=== PATIENT | male | born 1970 | race Caucasian/White ===

== ENCOUNTER 2017-09-05 02:04 | Inpatient (IN) | payer OTHER ==
[~2017-09-05] VITALS: Ht 188 cm; Wt 112.5 kg
[~2017-09-05 02:04] MED LIST: ALLP300T PO; CEPH500C PO; HYDR-34 PO; INDO50CA PO; METO25TA PO; SIMV10TA3; TELM40T PO; TRAZ-144 PO
--- OUTSIDE RECORDS SUMMARY | 2017-09-05 02:11 | XMS REPORT | Continuity of Care Document ---
Author Author [facility] Organization [facility] Address Unknown Phone Unavailable Allergies Active Description Code Type Severity Reaction Onset Reported/Identified Relationship to Patient Clinical Status Yes morphine [id number] Drug Allergy Mild N/A 06/23/2007 Medications There is no data. Problems Date Dx Coded Attending Type Code Diagnosis Diagnosed By 12/29/2009 Ot 883.0 12/29/2009 Ot E000.8 12/29/2009 Ot E849.0 12/29/2009 Ot E917.9 10/20/2011 Ot 881.00 10/20/2011 Ot E000.0 10/20/2011 Ot E920.8 12/22/2013 JORDAN FLOYD Ot 816.00 12/22/2013 JORDAN FLOYD Ot 883.0 12/22/2013 JORDAN FLOYD Ot 959.5 12/22/2013 JORDAN FLOYD Ot E000.8 12/22/2013 JORDAN FLOYD Ot E849.0 12/22/2013 JORDAN FLOYD Ot E917.4 06/17/2015 JULIET LOPEZ APRN Ot 272.4 06/17/2015 JULIET LOPEZ APRN Ot 780.79 06/17/2015 JULIET LOPEZ APRN Ot 790.29 Procedures There is no data. Results There is no data. Encounters ACCT No. Visit Date/Time Discharge Status Pt. Type Provider Facility Loc./Unit Complaint [id number] 06/17/2015 21:24:00 06/17/2015 23:12:00 DIS Emergency GENARO JIM, CHRISTIAN Mckeon [facility] ER [id number] 05/26/2014 11:36:00 05/26/2014 23:59:59 CLS Outpatient JULIET LOPEZ APRN [facility] LAB [id number] 12/22/2013 18:55:00 12/22/2013 20:04:00 DIS Emergency YULIANA MCGRATH, JORDAN Alexander [facility] [id number] 10/20/2011 12:35:00 Document Registration [id number] 12/29/2009 01:44:00 Document Registration
[2017-09-05] MEDS ORDERED: NS IV 1000 ML 1,000 ML IV ONE (02:16)
[2017-09-05] MEDS ORDERED: fentaNYL INJECTION 100 MCG/2 ML AMP IVP STA (02:16)
[2017-09-05 02:24] LABS: BASOPHILS % (AUTO) 0 % (0-10); EOSINOPHILS % (AUTO) 0 % (0-10); HEMATOCRIT 44 % (40-54); HEMOGLOBIN 15.8 G/DL (13.3-17.7); LYMPHOCYTES # (AUTO) 2.4 X 10^3 (1.0-4.0); LYMPHOCYTES % (AUTO) 12 % (12-44); MEAN CORPUSCULAR HEMOGLOBIN 31 PG (25-34); MEAN CORPUSCULAR HGB CONC 36 G/DL (32-36); MEAN CORPUSCULAR VOLUME 87 FL (80-99); MEAN PLATELET VOLUME 10.3 FL (7.4-10.4); MONOCYTES # (AUTO) 1.7 X 10^3 (0.0-1.0); MONOCYTES % (AUTO) 8 % (0-12); NEUTROPHILS # (AUTO) 15.6 X 10^3 (1.8-7.8); NEUTROPHILS % (AUTO) 79 % (42-75); PLATELET COUNT 327 10^3/uL (130-400); RED BLOOD COUNT 5.04 10^6/uL (4.35-5.85); RED CELL DISTRIBUTION WIDTH 13.1 % (10.0-14.5); WHITE BLOOD COUNT 19.7 10^3/uL (4.3-11.0)
[2017-09-05 02:31] LABS: BILIRUBIN,URINE NEGATIVE (NEGATIVE); CLARITY,URINE CLEAR; COLOR,URINE AMBER; GLUCOSE, URINE (UA) NEGATIVE (NEGATIVE); KETONES,URINE NEGATIVE (NEGATIVE); LEUKOCYTE ESTERASE ,URINE 1+ (NEGATIVE); NITRITE,URINE NEGATIVE (NEGATIVE); PH,URINE 6 (5-9); PROTEIN,URINE NEGATIVE (NEGATIVE); UROBILINOGEN,URINE 1 MG/DL (NORMAL)
[2017-09-05] MEDS ORDERED: HYDROmorphone 2 MG/ML VIAL (DILAUDID) IVP STA (02:37)
--- NOTE | 2017-09-05 02:37 | ED Abdominal Pain ---
General Chief Complaint: Abdominal/GI Problems Stated Complaint: RT SIDE ABD PAIN Nursing Triage Note: PT TO ED 9 W/ S.O. FOR C/O LOWER ABD PAIN ONSET MONDAY AM, WORSE TODAY. DENIES N/V/D. DOES REPORT SMALL AMT BLOOD IN HIS STOOLS W/ LAST BM MONDAY AM. NO OTHER C/O VOICED Sepsis Screen: No Definite Risk Source of Information: Patient Exam Limitations: No Limitations History of Present Illness Date Seen by Provider: September 05, 2017 Time Seen by Provider: 02:10 Initial Comments Here with complaint of lower abdominal pain over the last couple of days. Complains of fullness and pain with movement. Reports that he's had diarrhea a few times and noted some blood in the stool the last couple times. Denies nausea or vomiting. Pain is localized mostly lower central abdomen. Timing/Duration: 1-2 Days Severity/Quality: Moderate, Severe, Aching, Cramping Location: Suprapubic Radiation: RLQ, LLQ Activities at Onset: None Modifying Factors: Improves With Defecating; Worsens With Eating, Worsens With Movement Associated Symptoms: No Back Pain, No Chest Pain; Fever/Chills, Nausea/Vomiting ; No Shortness of Air, No Swelling/Mass in Abdomen, No Weakness Allergies and Home Medications Allergies Coded Allergies: Morphine (Unverified Adverse Reaction, Mild, 06/23/07) Home Medications Cephalexin Monohydrate 500 Mg Capsule, 1 EACH PO TID Prescribed by: JORDAN BRIDGES on 12/22/132001 Hydrocodone Bit/Acetaminophen 1 Ea Tablet, 1 EA PO Q4H, (Reported) Metoprolol Succinate 25 Mg Tab.sr.24h, 1 EACH PO DAILY, (Reported) Patient Home Medication List Home Medication List Reviewed: Yes Review of Systems Constitutional: see HPI; No chills, No fever EENTM: No Symptoms Reported Respiratory: No Symptoms Reported Cardiovascular: No Symptoms Reported Gastrointestinal: See HPI, Abdominal Pain, Diarrhea, Rectal Bleeding Genitourinary: No Symptoms Reported Musculoskeletal: no symptoms reported Skin: no symptoms reported All Other Systems Reviewed Negative Unless Noted: Yes Past Xgcmihr-Xrpqsg-Bwfyhz Hx Past Med/Social Hx: Reviewed Nursing Past Med/Soc Hx Patient Social History Alcohol Use: Denies Use Recreational Drug Use: No Smoking Status: Never a Smoker 2nd Hand Smoke Exposure: Yes Recent Foreign Travel: No Contact w/Someone Who Travel: No Recent Infectious Disease Expo: No Recent Hopitalizations: Yes Physical Abuse: No Sexual Abuse: No Mistreated: No Fear: No Immunizations Up To Date Tetanus Booster (TDap): Less than 5yrs Past Medical History Surgeries: Yes (APPY, DISC SURG) Amputation, Appendectomy, Orthopedic Cardiac: Yes Hypertension Neurological: No Reproductive Disorders: No Gastrointestinal: Yes Abdominal Hernia (umbilical) Musculoskeletal: Yes (chronic neck pain) Gout Endocrine: No Cancer: No Psychosocial: No Nursing Suicide Risk Score: 0 Blood Disorders: No Family Medical History Reviewed Nursing Family Hx No Pertinent Family Hx Physical Exam Vital Signs Vital Signs - First Documented 09/05/17 02:08 Temp 96.1 Pulse 78 Resp 20 B/P (MAP) 147/100 (116) Pulse Ox 98 O2 Delivery Room Air Capillary Refill : Less Than 3 Seconds General Appearance: WD/WN, no apparent distress HEENT: PERRL/EOMI, pharynx normal Neck: full range of motion, supple Respiratory: lungs clear, normal breath sounds Cardiovascular: regular rate, rhythm, no murmur Gastrointestinal: soft, tenderness (suprapubic region), other (umbilical hernia reducible and was reduced by me. Defects noted in the left lower umbilical area) Extremities: non-tender, normal inspection Back: normal inspection, no CVA tenderness, no vertebral tenderness Neurologic/Psychiatric: alert, oriented x 3 Skin: normal color, warm/dry Focused Exam Lactate Level 09/05/17 03:27: Lactic Acid Level 0.76 Lactic Acid Level Laboratory Tests Test 09/05/17 03:27 Lactic Acid Level 0.76 MMOL/L (0.50-2.00) Progress/Results/Core Measures Lab Results Laboratory Tests Test 09/05/17 02:14 09/05/17 02:25 09/05/17 03:27 Range/Units White Blood Count 19.7 H 4.3-11.0 10^3/uL Red Blood Count 5.04 4.35-5.85 10^6/uL Hemoglobin 15.8 13.3-17.7 G/DL Hematocrit 44 40-54 % Mean Corpuscular Volume 87 80-99 FL Mean Corpuscular Hemoglobin 31 25-34 PG Mean Corpuscular Hemoglobin Concent 36 32-36 G/DL Red Cell Distribution Width 13.1 10.0-14.5 % Platelet Count 327 130-400 10^3/uL Mean Platelet Volume 10.3 7.4-10.4 FL Neutrophils (%) (Auto) 79 H 42-75 % Lymphocytes (%) (Auto) 12 12-44 % Monocytes (%) (Auto) 8 0-12 % Eosinophils (%) (Auto) 0 0-10 % Basophils (%) (Auto) 0 0-10 % Neutrophils # (Auto) 15.6 H 1.8-7.8 X 10^3 Lymphocytes # (Auto) 2.4 1.0-4.0 X 10^3 Monocytes # (Auto) 1.7 H 0.0-1.0 X 10^3 Eosinophils # (Auto) 0.0 0.0-0.3 10^3/uL Basophils # (Auto) 0.0 0.0-0.1 10^3/uL Neutrophils % (Manual) 83 % Lymphocytes % (Manual) 10 % Monocytes % (Manual) 6 % Band Neutrophils 1 % Blood Morphology Comment NORMAL Sodium Level 136 135-145 MMOL/L Potassium Level 3.8 3.6-5.0 MMOL/L Chloride Level 106 98-107 MMOL/L Carbon Dioxide Level 18 L 21-32 MMOL/L Anion Gap 12 5-14 MMOL/L Blood Urea Nitrogen 14 7-18 MG/DL Creatinine 1.12 0.60-1.30 MG/DL Estimat Glomerular Filtration Rate > 60 BUN/Creatinine Ratio 13 Glucose Level 113 H 70-105 MG/DL Calcium Level 9.5 8.5-10.1 MG/DL Total Bilirubin 1.6 H 0.1-1.0 MG/DL Aspartate Amino Transf (AST/SGOT) 17 5-34 U/L Alanine Aminotransferase (ALT/SGPT) 27 0-55 U/L Alkaline Phosphatase 107 40-136 U/L C-Reactive Protein High Sensitivity 6.94 H 0.00-0.50 MG/DL Total Protein 7.6 6.4-8.2 GM/DL Albumin 4.2 3.2-4.5 GM/DL Urine Color JORJE H Urine Clarity CLEAR Urine pH 6 5-9 Urine Specific [place]aine 1.015 L 1.016-1.022 Urine Protein NEGATIVE NEGATIVE Urine Glucose (UA) NEGATIVE NEGATIVE Urine Ketones NEGATIVE NEGATIVE Urine Nitrite NEGATIVE NEGATIVE Urine Bilirubin NEGATIVE NEGATIVE Urine Urobilinogen 1 NORMAL MG/DL Urine Leukocyte Esterase 1+ H NEGATIVE Urine RBC (Auto) NEGATIVE NEGATIVE Urine RBC NONE /HPF Urine WBC RARE /HPF Urine Squamous Epithelial Cells RARE /HPF Urine Crystals NONE /LPF Urine Bacteria NEGATIVE /HPF Urine Casts NONE /LPF Urine Mucus LARGE H /LPF Urine Culture Indicated NO Lactic Acid Level 0.76 0.50-2.00 MMOL/L My Orders Orders - GARTH CLINTON MD Cbc With Automated Diff (09/05/17 02:16) Comprehensive Metabolic Panel (09/05/17 02:16) Hs C Reactive Protein (09/05/17 02:16) Ua Culture If Indicated (09/05/17 02:16) Saline Lock/Iv-Start (09/05/17 02:16) Ns Iv 1000 Ml (Sodium Chloride 0.9%) (09/05/17 02:16) Fentanyl Injection (Sublimaze Injection (09/05/17 02:16) Manual Differential (09/05/17 02:14) Hydromorphone Injection (Dilaudid Inject (09/05/17 02:37) Ct Abdomen/Pelvis W (09/05/17 02:49) Iohexol Injection (Omnipaque 350 Mg/Ml 1 (09/05/17 03:15) Ns (Ivpb) (Sodium Chloride 0.9%) (09/05/17 03:15) Lactic Acid Analyzer (09/05/17 03:23) Blood Culture (09/05/17 03:23) Rocephin 1g/Ns Iv (09/05/17 04:00) Medications Given in ED Current Medications Medications Dose Ordered Sig/Terell Route Start Time Stop Time Status Last Admin Dose Admin Iohexol 100 ml ONCE ONCE IV 09/05/17 03:15 09/05/17 03:16 DC 09/05/17 03:12 100 ML Sodium Chloride 250 ml ONCE ONCE IV 09/05/17 03:15 09/05/17 03:16 DC 09/05/17 03:13 80 ML Sodium Chloride 1,000 ml @ 0 mls/hr Q0M ONCE IV 09/05/17 02:16 09/05/17 02:18 DC 09/05/17 02:46 1,000 MLS/HR Vital Signs/I&O 09/05/17 02:08 Temp 96.1 Pulse 78 Resp 20 B/P (MAP) 147/100 (116) Pulse Ox 98 O2 Delivery Room Air Blood Pressure Mean: 116 Progress Note : Progress Note Seen and evaluated. IV, labs, UA, Dilaudid [address] abdomen and pelvis with contrast ordered due to concerns about diverticulitis and/or perforation. Patient does have significant white blood cell count. Monitor patient. Pain med control pain. 0354: CT results noted. Patient does have a significant diverticulitis. White count is significantly elevated. Blood cultures and lactic acid have been drawn. Rocephin 1 g IV. I discussed the case with Dr. GUERRA and he accepts patient for admission, inpatient status. Consult surgeon in the a.m. Written to consult Dr. Ritchie in the morning. Findings concerning discussed with patient and family who agree with plan. Diagonstic Imaging: CT Plain Films/CT/US/NM/MRI: abdomen, pelvis Comments Sigmoid diverticulitis without perforation per radiology review. Reviewed: Reviewed Night Hawk Study, Reviewed by Me Departure Communication (Admissions) Time/Spoke to Admitting Phy: 03:54 Impression Primary Impression: Sigmoid diverticulitis Disposition: ADMITTED INPATIENT Condition: Stable Admissions Decision to Admit Reason: Admit from ER (General) Decision to Admit/Date: September 05, 2017 Time/Decision to Admit Time: 03:54 Departure-Patient Inst. Referrals: RUFINA MURPHY MD (PCP/Family) Primary Care Physician GARTH CLINTON MD September 05, 2017 02:37
[2017-09-05 02:38] LABS: BACTERIA,URINE NEGATIVE /HPF; SQUAMOUS EPITHELIAL CELL,UR RARE /HPF; WBC,URINE RARE /HPF
[2017-09-05 02:42] LABS: ALANINE AMINOTRANSFERASE 27 U/L (0-55); ALBUMIN 4.2 GM/DL (3.2-4.5); ALKALINE PHOSPHATASE 107 U/L (40-136); BILIRUBIN,TOTAL 1.6 MG/DL (0.1-1.0); BUN/CREATININE RATIO 13; CALCIUM 9.5 MG/DL (8.5-10.1); CARBON DIOXIDE 18 MMOL/L (21-32); CHLORIDE 106 MMOL/L (98-107); CREATININE SERUM 1.12 MG/DL (0.60-1.30); GFR ESTIMATED > 60; GLUCOSE 113 MG/DL (70-105); POTASSIUM 3.8 MMOL/L (3.6-5.0); SODIUM 136 MMOL/L (135-145); TOTAL PROTEIN 7.6 GM/DL (6.4-8.2)
[2017-09-05 02:47] LABS: BAND NEUTROPHILS 1 %; LYMPHOCYTES % (MANUAL) 10 %; MONOCYTES % (MANUAL) 6 %; NEUTROPHILS % (MANUAL) 83 %; RBC MORPH NORMAL
[2017-09-05] MEDS ORDERED: IOHEXOL 350 MG/ML 100 ML (OMNIPAQUE 350) VIAL IV ONE (03:15)
[2017-09-05] MEDS ORDERED: NS 250 ML (IVPB) BAG IV ONE (03:15)
[2017-09-05] MEDS ORDERED: cefTRIAXone INJECTION 1,000 MG in NS (IVPB) 100 ML IV ONE (04:00)
[2017-09-05 05:00] VITALS: BP 135/86
[2017-09-05] MEDS ORDERED: NS IV 1000 ML 1,000 ML ONE (05:09)
[2017-09-05] MEDS: NS IV 1000 ML 1,000 ML IV SCH ×3 (05:10→23:27)
[2017-09-05] MEDS ORDERED: CATHETER FLUSH 10 ML SYR IV PRN (06:00)
[2017-09-05] MEDS: cefTRIAXone 1 GM/NS 100 ML IVPB IV SCH ×2 (06:02)
[2017-09-05] MEDS: CATHETER FLUSH 10 ML SYR IV SCH ×3 (06:04→21:25)
[2017-09-05] MEDS: metroNIDAZOLE 500 MG/100 ML IVPB (PRE-MIX) IV SCH ×4 (06:09→23:57)
[2017-09-05] MEDS: HYDROmorphone 2 MG/ML VIAL (DILAUDID) IV PRN ×5 (06:10→23:29)
[2017-09-05 08:00] VITALS: BP 132/75
--- NOTE | 2017-09-05 08:00 | Diagnostic Imaging Report ---
PROCEDURE: CT abdomen and pelvis with contrast. TECHNIQUE: Multiple contiguous axial images were obtained through the abdomen and pelvis after administration of intravenous contrast. INDICATION: Low abdominal pain. No previous. Segmental bowel wall thickening with pericolonic edema associated with mid sigmoid diverticulitis. There was, however, no extraluminal air collection. No findings of transmural perforation and no abscess or drainable fluid collection. There is a fatty umbilical hernia without herniated viscus. Liver, gallbladder, spleen, adrenals and pancreas are unremarkable. The kidneys are unobstructed, nonacute and nonfocal. There is no bowel obstruction. IMPRESSION: 1. Focal sigmoid diverticulitis without abscess, obstruction or findings of transmural perforation. 2. Fatty chronic umbilical hernia. 3. No other acute abnormalities. Dictated by: Dictated on workstation # [id number]
[2017-09-05 08:09] LABS: BASOPHILS % (AUTO) 0 % (0-10); EOSINOPHILS # (AUTO) 0.1 10^3/uL (0.0-0.3); EOSINOPHILS % (AUTO) 1 % (0-10); HEMATOCRIT 42 % (40-54); HEMOGLOBIN 14.7 G/DL (13.3-17.7); LYMPHOCYTES # (AUTO) 2.7 X 10^3 (1.0-4.0); LYMPHOCYTES % (AUTO) 16 % (12-44); MEAN CORPUSCULAR HEMOGLOBIN 31 PG (25-34); MEAN CORPUSCULAR HGB CONC 35 G/DL (32-36); MEAN CORPUSCULAR VOLUME 89 FL (80-99); MEAN PLATELET VOLUME 10.4 FL (7.4-10.4); MONOCYTES # (AUTO) 1.8 X 10^3 (0.0-1.0); MONOCYTES % (AUTO) 10 % (0-12); NEUTROPHILS # (AUTO) 12.7 X 10^3 (1.8-7.8); NEUTROPHILS % (AUTO) 73 % (42-75); PLATELET COUNT 286 10^3/uL (130-400); RED BLOOD COUNT 4.75 10^6/uL (4.35-5.85); RED CELL DISTRIBUTION WIDTH 13.3 % (10.0-14.5); WHITE BLOOD COUNT 17.3 10^3/uL (4.3-11.0)
[2017-09-05 08:38] LABS: ALANINE AMINOTRANSFERASE 23 U/L (0-55); ALBUMIN 3.8 GM/DL (3.2-4.5); ALKALINE PHOSPHATASE 93 U/L (40-136); BILIRUBIN,TOTAL 1.6 MG/DL (0.1-1.0); BUN/CREATININE RATIO 13; CALCIUM 8.8 MG/DL (8.5-10.1); CARBON DIOXIDE 20 MMOL/L (21-32); CHLORIDE 106 MMOL/L (98-107); GFR ESTIMATED > 60; GLUCOSE 97 MG/DL (70-105); POTASSIUM 3.7 MMOL/L (3.6-5.0); SODIUM 136 MMOL/L (135-145); TOTAL PROTEIN 6.7 GM/DL (6.4-8.2)
[2017-09-05] MEDS ORDERED: HYDR-3820 PO (09:48)
[2017-09-05] MEDS ORDERED: GABA-488 PO (09:48)
[2017-09-05] MEDS ORDERED: ZOLP10TA5 PO (09:48)
[2017-09-05] MEDS ORDERED: ALLO300T2 PO (09:48)
[2017-09-05] MEDS ORDERED: METO-370 PO (09:48)
[2017-09-05] MEDS ORDERED: DIAZ5TAB3 PO (09:56)
[2017-09-05] MEDS ORDERED: GABA600T2 PO (09:56)
--- NOTE | 2017-09-05 11:39 | History & Physical-Hospitalist ---
History of Present Illness HPI/Chief Complaint Pt is [id number] with a PMH of HTN who presented to the ER for evaluation of his abdominal pain. He states his symptoms started 2 days ago when he woke up in the morning. They continued to worsen and his pain intensified so he decided to seek care in the ER. He denies any nausea or vomiting and had a BM yesterday and has had some diarrhea. He reports that he was febrile off and on over the past two days as well. He localizes the pain to his lower abdomen and describes it as sharp. He states his pain is now well controlled with current pain medications. he Source: patient Exam Limitations: no limitations Date Seen 09/05/17 Time Seen by Provider: 11:15 Attending Physician Kurtis Rai MD PCP Brown Murphy MD Referring Physician Date of Admission September 05, 2017 at 4:00 am Home Medications & Allergies Home Medications Reviewed patient Home Medication Reconciliation performed by pharmacy medication reconciliations substance abuse technician and/or nursing. Patients Allergies have been reviewed. Allergies Allergies Coded Allergies morphine (Unverified Adverse Reaction, Mild, 06/23/07) Past Wtmdiay-Croywg-Pedxsw Hx Past Med/Social Hx: Reviewed Nursing Past Med/Soc Hx Patient Social History Alcohol Use: Denies Use Recreational Drug Use: No Smoking Status: Never a Smoker 2nd Hand Smoke Exposure: Yes Physical Abuse Screen: No Sexual Abuse: No Recent Foreign Travel: No Contact w/other who traveled: No Recent Hopitalizations: Yes Recent Infectious Disease Expo: No Immunizations Up To Date Tetanus Booster (TDap): Less than 5yrs Seasonal Allergies Seasonal Allergies: No Past Medical History Surgeries: Amputation, Appendectomy, Orthopedic (neck surgery) Cardiac: High Cholesterol, Hypertension Reproductive: No Gastrointestinal: Abdominal Hernia Musculoskeletal: Gout History of Blood Disorders: No Family History Reviewed Nursing Family Hx Patient reports no known family medical history. Unknown family history as patient is adopted Review of Systems Constitutional: No chills; fever EENTM: No blurred vision, No double vision, No nose congestion, No throat pain Respiratory: No cough, No dyspnea on exertion, No short of breath Cardiovascular: No chest pain, No edema, No palpitations Gastrointestinal: abdominal pain; No constipation; diarrhea; No melena, No nausea, No vomiting; other (BRBPR) Genitourinary: No dysuria, No frequency Musculoskeletal: No joint pain, No muscle pain Skin: No lesions, No rash Psychiatric/Neurological: Denies Headache, Denies Numbness, Denies Tingling Physical Exam Physical Exam Vital Signs Vital Signs - First Documented 09/05/17 02:08 Temp 96.1 Pulse 78 Resp 20 B/P (MAP) 147/100 (116) Pulse Ox 98 O2 Delivery Room Air Capillary Refill : Less Than 3 Seconds General Appearance: No Apparent Distress, WD/WN HEENT: PERRL/EOMI, Moist Mucous Membranes; No Scleral Icterus (L), No Scleral Icterus (R) Neck: Non Tender, Supple; No JVD, No Thyromegaly Respiratory: Lungs Clear, No Respiratory Distress Cardiovascular: Regular Rate, Rhythm, No Murmur Gastrointestinal: Normal Bowel Sounds, Soft; No Guarding, No Rebound; Tenderness Extremity: Normal Capillary Refill, No Calf Tenderness, No Pedal Edema Neurologic/Psychiatric: Alert, Oriented x3, No Motor/Sensory Deficits, Normal Mood/Affect Skin: Normal Color, Warm/Dry, Tattoos/Piercings Results Results/Procedures Labs Laboratory Tests 09/05/17 02:14 09/05/17 07:58 Patient resulted labs reviewed. Imaging: Reviewed Imaging Report Assessment/Plan Admission Diagnosis Diverticulitis Admission Status: Inpatient Order (span 2 midnights) Reason for Inpatient Admission: Needs IV abx and surgical evaluation Diagnosis/Problems Diagnosis/Problems (1) Sigmoid diverticulitis Status: Acute Assessment & Plan: Met sepsis criteria (leukocytosis with temp of 96.1) on arrival- now resolved Blood cultures obtained, lactic acid normal, IV abx given NPO Continue IV Dilaudid for pain control Continue Rocephin and Flagyl Leukocytosis improving Surgery consulted (2) Essential (primary) hypertension Assessment & Plan: Monitor BP Continue to monitor (3) Bright red blood per rectum Assessment & Plan: Surgery consulted, appreciate assistance Hgb normal (4) Prophylactic measure Assessment & Plan: NPO NS at 125ml/hr Clinical Quality Measures DVT/VTE Risk/Contraindication: Risk Factor Score Per Nursin RFS Level Per Nursing on Admit: 3=High Copy Copies To 1: BROWN MURPHY MD, KATELYN M MD September 05, 2017 11:39 am
[2017-09-05 12:00] VITALS: BP 131/79
[2017-09-05] MEDS: ONDANSETRON 4 MG/2 ML (SDV) Z0FRAN IV PRN ×2 (15:10→20:08)
[2017-09-05 15:35] VITALS: BP 133/76
--- NOTE | 2017-09-05 15:55 | Consultation ---
History of Present Illness History of Present Illness Patient Consulted On(shobha/time) 09/05/17 15:49 Date Seen by Provider: September 05, 2017 Time Seen by Provider: 15:49 History of Present Illness Consult requested by Dr. Peña for diverticulitis Patient is a 47-year-old male who suddenly began having pain in left lower quadrant. He woke up with that. Pain was constant. Sharp in nature. No radiation of pain. Patient probably had some diarrhea at times. He has never had pain like this before. It continued to worsen is moderate to severe. Moving does cause it to worsen little bit. Nothing was seems to make it better except for pain medications at this point. Patient is not having any nausea or vomiting. He was having on and off fevers he felt. He has CT scan performed which demonstrated inflammation in the sigmoid region. No evidence of abscess or perforation when I reviewed it. Patient currently feeling a little bit better. He denies any sweats chills shortness of breath or chest pain. Allergies and Home Medications Allergies Coded Allergies: morphine (Unverified Adverse Reaction, Mild, 06/23/07) Home Medications Allopurinol 300 Mg Tablet, 300 MG PO DAILY, (Reported) Diazepam 5 Mg Tablet, 5 MG PO TID PRN for ANXIETY, (Reported) Gabapentin 600 Mg Tablet, 600 MG PO HS, (Reported) Hydrocodone/Acetaminophen 1 Each Tablet, 1 TAB PO Q4H PRN for PAIN-MODERATE, ( Reported) Metoprolol Succinate 50 Mg Tab.er.24h, 50 MG PO HS, (Reported) Zolpidem Tartrate 10 Mg Tablet, 10 MG PO HS, (Reported) Patient Home Medication List Home Medication List Reviewed: Yes Past Knkaluh-Ohmpgp-Ykkyea Hx Patient Social History Alcohol Use: Denies Use Recreational Drug Use: No Smoking Status: Never a Smoker 2nd Hand Smoke Exposure: Yes Recent Foreign Travel: No Contact w/Someone Who Travel: No Recent Infectious Disease Expo: No Recent Hopitalizations: Yes Physical Abuse Screen: No Sexual Abuse: No Immunizations Up To Date Tetanus Booster (TDap): Less than 5yrs Seasonal Allergies Seasonal Allergies: No Surgeries History of Surgeries: Yes (APPY, DISC SURG, amputation of index finger rt hand) Surgeries: Amputation, Appendectomy, Orthopedic (neck surgery) Respiratory History of Respiratory Disorde: No Cardiovascular History of Cardiac Disorders: Yes Cardiac Disorders: High Cholesterol, Hypertension Neurological History of Neurological Disord: No Reproductive System Hx Reproductive Disorders: No Genitourinary History of Genitourinary Disor: No Gastrointestinal History of Gastrointestinal Di: Yes Gastrointestinal Disorders: Abdominal Hernia Musculoskeletal History of Musculoskeletal Dis: Yes (chronic neck pain) Musculoskeletal Disorders: Gout Endocrine History of Endocrine Disorders: No HEENT History of HEENT Disorders: No Cancer History of Cancer: No Psychosocial History of Psychiatric Problem: No Integumentary History of Skin or Integumenta: No Blood Transfusions History of Blood Disorders: No Family Medical History Significant Family History: No Pertinent Family Hx (Adopted) Family Medial History: Patient reports no known family medical history. Review of Systems-General Constitutional: no symptoms reported EENTM: no symptoms reported Respiratory: no symptoms reported Cardiovascular: no symptoms reported Gastrointestinal: see HPI Genitourinary: no symptoms reported Musculoskeletal: no symptoms reported Skin: no symptoms reported Psychiatric/Neurological: No Symptoms Reported Physical Exam-General Problems Physical Exam Vital Signs Vital Signs - First Documented 09/05/17 02:08 Temp 96.1 Pulse 78 Resp 20 B/P (MAP) 147/100 (116) Pulse Ox 98 O2 Delivery Room Air Capillary Refill : Less Than 3 Seconds General Appearance: WD/WN, no apparent distress HEENT: PERRL/EOMI, normal ENT inspection Neck: non-tender, full range of motion, supple Respiratory: no respiratory distress, no accessory muscle use Cardiovascular: regular rate, rhythm Gastrointestinal: soft; No guarding, No rebound; tenderness (right lower quadrant) Rectal: deferred Back: normal inspection Neurologic/Psychiatric: seasoning mixer II-XII nml as tested, no motor/sensory deficits, alert, normal mood/affect, oriented x 3 Skin: normal color, warm/dry Lymphatic: no adenopathy Data Review Labs Laboratory Tests 09/05/17 02:14: White Blood Count 19.7H, Red Blood Count 5.04, Hemoglobin 15.8, Hematocrit 44, Mean Corpuscular Volume 87, Mean Corpuscular Hemoglobin 31, Mean Corpuscular Hemoglobin Concent 36, Red Cell Distribution Width 13.1, Platelet Count 327, Mean Platelet Volume 10.3, Neutrophils (%) (Auto) 79H, Lymphocytes (%) (Auto) 12 , Monocytes (%) (Auto) 8, Eosinophils (%) (Auto) 0, Basophils (%) (Auto) 0, Neutrophils # (Auto) 15.6H, Lymphocytes # (Auto) 2.4, Monocytes # (Auto) 1.7H, Eosinophils # (Auto) 0.0, Basophils # (Auto) 0.0, Neutrophils % (Manual) 83, Lymphocytes % (Manual) 10, Monocytes % (Manual) 6, Band Neutrophils 1, Blood Morphology Comment NORMAL, Sodium Level 136, Potassium Level 3.8, Chloride Level 106, Carbon Dioxide Level 18L, Anion Gap 12, Blood Urea Nitrogen 14, Creatinine 1.12, Estimat Glomerular Filtration Rate > 60, BUN/Creatinine Ratio 13, Glucose Level 113H, Calcium Level 9.5, Total Bilirubin 1.6H, Aspartate Amino Transf (AST/SGOT) 17, Alanine Aminotransferase (ALT/SGPT) 27, Alkaline Phosphatase 107, C-Reactive Protein High Sensitivity 6.94H, Total Protein 7.6, Albumin 4.2 09/05/17 02:25: Urine Color AMBERH, Urine Clarity CLEAR, Urine pH 6, Urine Specific [place] 1.015L, Urine Protein NEGATIVE, Urine Glucose (UA) NEGATIVE, Urine Ketones NEGATIVE, Urine Nitrite NEGATIVE, Urine Bilirubin NEGATIVE, Urine Urobilinogen 1 , Urine Leukocyte Esterase 1+H, Urine RBC (Auto) NEGATIVE, Urine RBC NONE, Urine WBC RARE, Urine Squamous Epithelial Cells RARE, Urine Crystals NONE, Urine Bacteria NEGATIVE, Urine Casts NONE, Urine Mucus LARGEH, Urine Culture Indicated NO 09/05/17 03:27: Lactic Acid Level 0.76 09/05/17 07:58: White Blood Count 17.3H, Red Blood Count 4.75, Hemoglobin 14.7, Hematocrit 42, Mean Corpuscular Volume 89, Mean Corpuscular Hemoglobin 31, Mean Corpuscular Hemoglobin Concent 35, Red Cell Distribution Width 13.3, Platelet Count 286, Mean Platelet Volume 10.4, Neutrophils (%) (Auto) 73, Lymphocytes (%) (Auto) 16 , Monocytes (%) (Auto) 10, Eosinophils (%) (Auto) 1, Basophils (%) (Auto) 0, Neutrophils # (Auto) 12.7H, Lymphocytes # (Auto) 2.7, Monocytes # (Auto) 1.8H, Eosinophils # (Auto) 0.1, Basophils # (Auto) 0.0, Sodium Level 136, Potassium Level 3.7, Chloride Level 106, Carbon Dioxide Level 20L, Anion Gap 10, Blood Urea Nitrogen 13, Creatinine 1.00, Estimat Glomerular Filtration Rate > 60, BUN/ Creatinine Ratio 13, Glucose Level 97, Calcium Level 8.8, Total Bilirubin 1.6H, Aspartate Amino Transf (AST/SGOT) 15, Alanine Aminotransferase (ALT/SGPT) 23, Alkaline Phosphatase 93, Total Protein 6.7, Albumin 3.8 Assessment/Plan Assessment/Plan Assessment/Plan 47-year-old male with left lower quadrant abdominal pain, diverticulitis Patient on IV antibiotics of Rocephin and Flagyl. Will keep nothing by mouth. IV hydration. Repeat labs in the morning. Patient no surgical intervention at this time we'll continue to monitor and follow. Clinical Quality Measures DVT/VTE Risk/Contraindication: Risk Factor Score Per Nursin RFS Level Per Nursing on Admit: 3=High YANIQUE ARCEO DO September 05, 2017 15:55
[2017-09-05 19:15] VITALS: BP 138/76
[2017-09-06 00:09] VITALS: BP 130/75
[2017-09-06 03:58] VITALS: BP 131/79
[2017-09-06] MEDS: metroNIDAZOLE 500 MG/100 ML IVPB (PRE-MIX) IV SCH ×4 (05:13→23:17)
[2017-09-06] MEDS: HYDROmorphone 2 MG/ML VIAL (DILAUDID) IV PRN ×3 (05:13→17:25)
[2017-09-06] MEDS: NS IV 1000 ML 1,000 ML IV SCH ×3 (05:56→19:48)
[2017-09-06] MEDS: CATHETER FLUSH 10 ML SYR IV SCH ×3 (05:56→19:49)
[2017-09-06 08:00] VITALS: BP 123/77
[2017-09-06 12:00] VITALS: BP 130/73
[2017-09-06 14:35] LABS: HEMOGLOBIN 13.7 G/DL (13.3-17.7); MEAN PLATELET VOLUME 10.1 FL (7.4-10.4); RED BLOOD COUNT 4.41 10^6/uL (4.35-5.85); RED CELL DISTRIBUTION WIDTH 13.1 % (10.0-14.5); WHITE BLOOD COUNT 11.3 10^3/uL (4.3-11.0)
[2017-09-06 14:46] LABS: BUN/CREATININE RATIO 15; CARBON DIOXIDE 23 MMOL/L (21-32); CHLORIDE 106 MMOL/L (98-107); CREATININE SERUM 0.95 MG/DL (0.60-1.30); GFR ESTIMATED > 60; GLUCOSE 80 MG/DL (70-105); POTASSIUM 3.7 MMOL/L (3.6-5.0); SODIUM 137 MMOL/L (135-145)
[2017-09-06 15:55] VITALS: BP 128/74
--- NOTE | 2017-09-06 16:19 | Progress Note ---
Subjective Date Seen by Provider: September 06, 2017 Time Seen by Provider: 08:36 Subjective/Events-last exam Patient feeling a little bit better this morning. He still having pain in the left lower quadrant. Movement making pain worse still. Lying still keeps it improved. He denies any nausea vomiting fever sweats chills shortness of breath or chest pain. WBC coming down Focused Exam Lactate Level 09/05/17 03:27: Lactic Acid Level 0.76 Objective Exam Vital Signs Date Time Temp Pulse Resp B/P (MAP) Pulse Ox O2 Delivery O2 Flow Rate FiO2 09/06/17 15:55 98.4 67 19 128/74 (92) 96 Room Air 09/06/17 12:00 98.8 62 20 130/73 (92) 96 Room Air 09/06/17 08:00 98.6 74 20 123/77 (92) 96 Room Air 09/06/17 03:58 98.8 73 18 131/79 (96) 96 Room Air 09/06/17 00:09 98.1 77 18 130/75 (93) 94 Room Air 09/05/17 19:15 99.4 76 18 138/76 (96) 96 Room Air I & O 09/06/17 07:00 Intake Total 300 ml Output Total 2300 ml Balance -2000 ml Capillary Refill : Less Than 3 Seconds General Appearance: No Apparent Distress, WD/WN HEENT: PERRL/EOMI, Moist Mucous Membranes; No Scleral Icterus (L), No Scleral Icterus (R) Neck: Non Tender, Supple; No JVD, No Thyromegaly Respiratory: Lungs Clear, No Respiratory Distress Cardiovascular: Regular Rate, Rhythm, No Murmur Gastrointestinal: soft; No guarding, No rebound; tenderness (right lower quadrant) Extremity: Normal Capillary Refill, No Calf Tenderness, No Pedal Edema Neurologic/Psychiatric: Alert, Oriented x3, No Motor/Sensory Deficits, Normal Mood/Affect Skin: Normal Color, Warm/Dry, Tattoos/Piercings Results Lab Laboratory Tests 09/06/17 14:20: White Blood Count 11.3H, Red Blood Count 4.41, Hemoglobin 13.7, Hematocrit 39L, Mean Corpuscular Volume 89, Mean Corpuscular Hemoglobin 31, Mean Corpuscular Hemoglobin Concent 35, Red Cell Distribution Width 13.1, Platelet Count 278, Mean Platelet Volume 10.1, Sodium Level 137, Potassium Level 3.7, Chloride Level 106, Carbon Dioxide Level 23, Anion Gap 8, Blood Urea Nitrogen 14, Creatinine 0.95, Estimat Glomerular Filtration Rate > 60, BUN/Creatinine Ratio 15, Glucose Level 80, Calcium Level 9.0 Microbiology 09/05/17 Blood Culture - Preliminary, Resulted No growth Assessment/Plan Assessment/Plan Assessment/Plan 47-year-old male with left lower quadrant abdominal pain, diverticulitis Patient on IV antibiotics of Rocephin and Flagyl. Will keep nothing by mouth. IV hydration. Repeat labs in the morning. Patient no surgical intervention at this time we' ll continue to monitor and follow. Likely start on clears in the morning. Clinical Quality Measures DVT/VTE Risk/Contraindication: Risk Factor Score Per Nursin RFS Level Per Nursing on Admit: 3=High YANIQUE ARCEO DO September 06, 2017 16:19
[2017-09-06 19:05] VITALS: BP 136/75
[2017-09-06] MEDS: ONDANSETRON 4 MG/2 ML (SDV) Z0FRAN IV PRN (19:48)
[2017-09-07 00:09] VITALS: BP 121/66
[2017-09-07] MEDS: ONDANSETRON 4 MG/2 ML (SDV) Z0FRAN IV PRN (02:42)
[2017-09-07] MEDS: HYDROmorphone 2 MG/ML VIAL (DILAUDID) IV PRN (02:42)
[2017-09-07] MEDS: NS IV 1000 ML 1,000 ML IV SCH (04:49)
[2017-09-07] MEDS: cefTRIAXone 1 GM/NS 100 ML IVPB IV SCH ×2 (04:49)
[2017-09-07] MEDS: CATHETER FLUSH 10 ML SYR IV SCH ×3 (05:31→22:47)
[2017-09-07] MEDS: metroNIDAZOLE 500 MG/100 ML IVPB (PRE-MIX) IV SCH ×4 (05:31→23:08)
[2017-09-07 06:31] LABS: HEMOGLOBIN 14.5 G/DL (13.3-17.7); MEAN PLATELET VOLUME 10.5 FL (7.4-10.4); RED BLOOD COUNT 4.67 10^6/uL (4.35-5.85); RED CELL DISTRIBUTION WIDTH 12.8 % (10.0-14.5); WHITE BLOOD COUNT 10.1 10^3/uL (4.3-11.0)
[2017-09-07 07:00] LABS: BUN/CREATININE RATIO 16; CARBON DIOXIDE 20 MMOL/L (21-32); CHLORIDE 107 MMOL/L (98-107); CREATININE SERUM 0.92 MG/DL (0.60-1.30); GFR ESTIMATED > 60; GLUCOSE 74 MG/DL (70-105); POTASSIUM 3.8 MMOL/L (3.6-5.0); SODIUM 138 MMOL/L (135-145)
[2017-09-07 08:00] VITALS: BP 142/78
--- NOTE | 2017-09-07 12:06 | Progress Note-Hospitalist ---
Subjective HPI/CC On Admission Date Seen by Provider: September 07, 2017 Time Seen by Provider: 12:01 Pt is [id number] with a PMH of HTN who presented to the ER for evaluation of his abdominal pain. He states his symptoms started 2 days ago when he woke up in the morning. They continued to worsen and his pain intensified so he decided to seek care in the ER. He denies any nausea or vomiting and had a BM yesterday and has had some diarrhea. He reports that he was febrile off and on over the past two days as well. He localizes the pain to his lower abdomen and describes it as sharp. He states his pain is now well controlled with current pain medications. he Subjective/Events-last exam Pt reports pain improved. No other complaints. Tolerating clears so far. Focused Exam Lactate Level 09/05/17 03:27: Lactic Acid Level 0.76 Objective Exam Vital Signs Vital Signs Date Time Temp Pulse Resp B/P (MAP) Pulse Ox O2 Delivery O2 Flow Rate FiO2 09/07/17 08:00 97.8 74 22 142/78 (99) 95 Room Air Capillary Refill : Less Than 3 Seconds General Appearance: No Apparent Distress, WD/WN Respiratory: Lungs Clear, No Respiratory Distress Cardiovascular: Regular Rate, Rhythm, No Murmur Gastrointestinal: Normal Bowel Sounds, Soft, Tenderness (mild, improved) Neurologic/Psychiatric: Alert, Oriented x3, Normal Mood/Affect Results/Procedures Lab Laboratory Tests 09/06/17 14:20 09/07/17 05:50 Patient resulted labs reviewed. Imaging: Reviewed Imaging Report Assessment/Plan Assessment and Plan Assess & Plan/Chief Complaint Diverticulitis Diagnosis/Problems Diagnosis/Problems (1) Sigmoid diverticulitis Status: Acute Assessment & Plan: BC NGTD CLD Continue IV Dilaudid for pain control Continue Rocephin and Flagyl Leukocytosis resolved Surgery consulted (2) Essential (primary) hypertension Assessment & Plan: Well controlled (3) Bright red blood per rectum Assessment & Plan: Surgery consulted, appreciate assistance Hgb normal (4) Prophylactic measure Assessment & Plan: CLD 1/2 NS at 75ml/hr Clinical Quality Measures DVT/VTE Risk/Contraindication: Risk Factor Score Per Nursin RFS Level Per Nursing on Admit: 3=High FRANCIS HARRY MD September 07, 2017 12:06 pm
[2017-09-07] MEDS: 1/2 NS IV SOLUTION 1,000 ML IV SCH (15:34)
[2017-09-07 15:45] VITALS: BP 145/76
--- NOTE | 2017-09-07 21:09 | Progress Note ---
Subjective Date Seen by Provider: September 07, 2017 Time Seen by Provider: 07:25 Subjective/Events-last exam Patient doing well. Having less pain. Currently NPO. Denies fever sweats chills shortness of breath or chest pain. Focused Exam Lactate Level 09/05/17 03:27: Lactic Acid Level 0.76 Objective Exam Vital Signs Date Time Temp Pulse Resp B/P (MAP) Pulse Ox O2 Delivery O2 Flow Rate FiO2 09/07/17 15:45 98.5 62 18 145/76 (99) 95 Room Air 09/07/17 08:00 97.8 74 22 142/78 (99) 95 Room Air 09/07/17 00:09 97.8 71 18 121/66 (84) 95 Room Air I & O 09/07/17 07:00 Intake Total 2300 ml Output Total 2650 ml Balance -350 ml Capillary Refill : Less Than 3 Seconds General Appearance: No Apparent Distress, WD/WN HEENT: PERRL/EOMI, Moist Mucous Membranes; No Scleral Icterus (L), No Scleral Icterus (R) Neck: Non Tender, Supple; No JVD, No Thyromegaly Respiratory: Lungs Clear, No Accessory Muscle Use, No Respiratory Distress Cardiovascular: Regular Rate, Rhythm, No Murmur Gastrointestinal: soft; No guarding, No rebound; tenderness (right lower quadrant less tenderness) Extremity: Normal Capillary Refill, No Calf Tenderness, No Pedal Edema Neurologic/Psychiatric: Alert, Oriented x3, Normal Mood/Affect Skin: Normal Color, Warm/Dry, Tattoos/Piercings Lymphatic: No Adenopathy Results Lab Laboratory Tests 09/07/17 05:50: White Blood Count 10.1, Red Blood Count 4.67, Hemoglobin 14.5, Hematocrit 41, Mean Corpuscular Volume 89, Mean Corpuscular Hemoglobin 31, Mean Corpuscular Hemoglobin Concent 35, Red Cell Distribution Width 12.8, Platelet Count 276, Mean Platelet Volume 10.5H, Sodium Level 138, Potassium Level 3.8, Chloride Level 107, Carbon Dioxide Level 20L, Anion Gap 11, Blood Urea Nitrogen 15, Creatinine 0.92, Estimat Glomerular Filtration Rate > 60, BUN/Creatinine Ratio 16, Glucose Level 74, Calcium Level 9.0 Microbiology 09/05/17 Blood Culture - Preliminary, Resulted No growth Assessment/Plan Assessment/Plan Assessment/Plan 47-year-old male with left lower quadrant abdominal pain, diverticulitis Patient on IV antibiotics of Rocephin and Flagyl. Will start on clear liquids. IV hydration. Repeat labs in the morning. No surgical intervention at this time we'll continue to monitor and follow. Will need colonoscopy in approximately 6-8 weeks. Clinical Quality Measures DVT/VTE Risk/Contraindication: Risk Factor Score Per Nursin RFS Level Per Nursing on Admit: 3=High YANIQUE ARCEO DO September 07, 2017 21:09
[2017-09-08] VITALS: BP 156/81
[2017-09-08] MEDS: HYDROmorphone 2 MG/ML VIAL (DILAUDID) IV PRN (01:39)
[2017-09-08] MEDS: CATHETER FLUSH 10 ML SYR IV SCH ×3 (05:09→20:43)
[2017-09-08] MEDS: cefTRIAXone 1 GM/NS 100 ML IVPB IV SCH ×2 (05:09)
[2017-09-08] MEDS: ONDANSETRON 4 MG/2 ML (SDV) Z0FRAN IV PRN (05:56)
[2017-09-08] MEDS: metroNIDAZOLE 500 MG/100 ML IVPB (PRE-MIX) IV SCH ×4 (05:57→23:26)
[2017-09-08] MEDS: 1/2 NS IV SOLUTION 1,000 ML IV SCH ×3 (05:57→22:57)
[2017-09-08 08:00] VITALS: BP 148/73
--- NOTE | 2017-09-08 10:40 | Progress Note ---
Subjective Date Seen by Provider: September 08, 2017 Time Seen by Provider: 10:37 Subjective/Events-last exam patient pain about same as yesterday maybe slightly better in left lower quadrant. some nausea. afebrile on liquid diet. Denies fever sweats chills shortness of breath or chest pain. Objective Exam Vital Signs Date Time Temp Pulse Resp B/P (MAP) Pulse Ox O2 Delivery O2 Flow Rate FiO2 09/08/17 08:00 98.5 65 24 148/73 (98) 95 Room Air 09/08/17 00:00 98.0 65 18 156/81 (106) 96 Room Air 09/07/17 15:45 98.5 62 18 145/76 (99) 95 Room Air I & O 09/08/17 07:00 Intake Total 1060 ml Output Total 2400 ml Balance -1340 ml Capillary Refill : Less Than 3 Seconds General Appearance: No Apparent Distress, WD/WN HEENT: PERRL/EOMI; No Scleral Icterus (L), No Scleral Icterus (R) Neck: Non Tender, Supple; No JVD, No Thyromegaly Respiratory: Lungs Clear, No Accessory Muscle Use, No Respiratory Distress Cardiovascular: Regular Rate, Rhythm, No Murmur Gastrointestinal: soft; No guarding, No rebound; tenderness (right lower quadrant less tenderness) Extremity: Normal Capillary Refill, No Calf Tenderness, No Pedal Edema Neurologic/Psychiatric: Alert, Oriented x3, Normal Mood/Affect Skin: Normal Color, Warm/Dry, Tattoos/Piercings Lymphatic: No Adenopathy Results Lab Microbiology 09/05/17 Blood Culture - Preliminary, Resulted No growth Assessment/Plan Assessment/Plan Assessment/Plan 47-year-old male with left lower quadrant abdominal pain, diverticulitis Patient on IV antibiotics of Rocephin and Flagyl. Will start on clear liquids. IV hydration. Repeat labs in the morning. Some nausea and still some pain, will hold on advancing diet No surgical intervention at this time we'll continue to monitor and follow. Will need colonoscopy in approximately 6-8 weeks. Clinical Quality Measures DVT/VTE Risk/Contraindication: Risk Factor Score Per Nursin RFS Level Per Nursing on Admit: 3=High YANIQUE ARCEO DO September 08, 2017 10:40
[2017-09-08 10:57] LABS: HEMOGLOBIN 14.6 G/DL (13.3-17.7); MEAN PLATELET VOLUME 9.9 FL (7.4-10.4); RED BLOOD COUNT 4.73 10^6/uL (4.35-5.85); RED CELL DISTRIBUTION WIDTH 12.6 % (10.0-14.5); WHITE BLOOD COUNT 10.2 10^3/uL (4.3-11.0)
[2017-09-08] MEDS ORDERED: HYDROcodone/APAP 5 MG/325 MG (LORTAB) TAB PO PRN (11:15)
--- NOTE | 2017-09-08 11:20 | Progress Note-Hospitalist ---
Subjective HPI/CC On Admission Date Seen by Provider: September 08, 2017 Time Seen by Provider: 11:16 Pt is [id number] with a PMH of HTN who presented to the ER for evaluation of his abdominal pain. He states his symptoms started 2 days ago when he woke up in the morning. They continued to worsen and his pain intensified so he decided to seek care in the ER. He denies any nausea or vomiting and had a BM yesterday and has had some diarrhea. He reports that he was febrile off and on over the past two days as well. He localizes the pain to his lower abdomen and describes it as sharp. He states his pain is now well controlled with current pain medications. he Subjective/Events-last exam Pt reports some abdominal pain and nausea last night after getting IV pain medicine. No other complaints today. Objective Exam Vital Signs Vital Signs Date Time Temp Pulse Resp B/P (MAP) Pulse Ox O2 Delivery O2 Flow Rate FiO2 09/08/17 08:00 98.5 65 24 148/73 (98) 95 Room Air Capillary Refill : Less Than 3 Seconds General Appearance: No Apparent Distress, WD/WN Respiratory: Lungs Clear, No Respiratory Distress Cardiovascular: Regular Rate, Rhythm, No Murmur Gastrointestinal: Normal Bowel Sounds, Soft, Distended (mild), Tenderness (mild , diffuse) Neurologic/Psychiatric: Alert, Oriented x3, Normal Mood/Affect Results/Procedures Lab Laboratory Tests 09/08/17 10:50 Patient resulted labs reviewed. Imaging: Reviewed Imaging Report Assessment/Plan Assessment and Plan Assess & Plan/Chief Complaint Diverticulitis Diagnosis/Problems Diagnosis/Problems (1) Sigmoid diverticulitis Status: Acute Assessment & Plan: BC NGTD CLD Continue IV Dilaudid for pain control Added orals in preparation for transition home Continue Rocephin and Flagyl Leukocytosis resolved Surgery consulted, appreciate assistance (2) Essential (primary) hypertension Assessment & Plan: More elevated today, trend (3) Bright red blood per rectum Assessment & Plan: Surgery consulted, appreciate assistance Hgb normal Will need colonoscopy as outpatient (4) Prophylactic measure Assessment & Plan: CLD 1/2 NS at 75ml/hr Clinical Quality Measures DVT/VTE Risk/Contraindication: Risk Factor Score Per Nursin RFS Level Per Nursing on Admit: 3=High FRANCIS HARRY MD September 08, 2017 11:20
[2017-09-08 16:10] VITALS: BP 124/78
[2017-09-08] MEDS ORDERED: meTOproloL SUCCINATE 50 MG (TOPROL XL) TAB PO SCH (21:00)
[2017-09-08] MEDS ORDERED: NON-FORMULARY MEDICATION 1 EA EA (Metoprolol Succinate 50 MG) PO SCH (21:00)
[2017-09-08] MEDS ORDERED: GABAPENTIN 600 MG (NEURONTIN) TAB PO SCH (21:00)
[2017-09-09 00:41] VITALS: BP 130/81
[2017-09-09] MEDS: cefTRIAXone 1 GM/NS 100 ML IVPB IV SCH ×2 (04:27)
[2017-09-09] MEDS: CATHETER FLUSH 10 ML SYR IV SCH (05:51)
[2017-09-09] MEDS: metroNIDAZOLE 500 MG/100 ML IVPB (PRE-MIX) IV SCH ×2 (05:51→12:00)
[2017-09-09 06:05] LABS: BASOPHILS # (AUTO) 0.1 10^3/uL (0.0-0.1); BASOPHILS % (AUTO) 1 % (0-10); EOSINOPHILS # (AUTO) 0.2 10^3/uL (0.0-0.3); EOSINOPHILS % (AUTO) 2 % (0-10); HEMATOCRIT 41 % (40-54); HEMOGLOBIN 14.5 G/DL (13.3-17.7); LYMPHOCYTES % (AUTO) 23 % (12-44); MEAN CORPUSCULAR HEMOGLOBIN 31 PG (25-34); MEAN CORPUSCULAR HGB CONC 36 G/DL (32-36); MEAN CORPUSCULAR VOLUME 87 FL (80-99); MEAN PLATELET VOLUME 10.2 FL (7.4-10.4); MONOCYTES % (AUTO) 12 % (0-12); NEUTROPHILS # (AUTO) 5.5 X 10^3 (1.8-7.8); NEUTROPHILS % (AUTO) 63 % (42-75); PLATELET COUNT 348 10^3/uL (130-400); RED BLOOD COUNT 4.71 10^6/uL (4.35-5.85); RED CELL DISTRIBUTION WIDTH 12.4 % (10.0-14.5); WHITE BLOOD COUNT 8.7 10^3/uL (4.3-11.0)
[2017-09-09 08:30] VITALS: BP 122/78
[2017-09-09] MEDS ORDERED: NON-FORMULARY MEDICATION 1 EA EA (Allopurinol 300 MG) PO SCH (09:00)
[2017-09-09] MEDS ORDERED: ALLOPURINOL 300 MG (ZYLOPRIM) TAB PO SCH (09:00)
[2017-09-09] MEDS ORDERED: NS IV 500 ML 500 ML IV SCH (09:04)
[2017-09-09] MEDS ORDERED: CIPR-225 PO (09:09)
[2017-09-09] MEDS ORDERED: METR500T PO (09:09)
--- NOTE | 2017-09-09 09:11 | Discharge Inst-Simple/Standard ---
Discharge Inst-Standard Discharge Medications New, Converted or Re-Newed RX: Call to Patients Pharmacy Patient Instructions/Follow Up Plan of Care/Instructions/FU: Please take your medications as written. Please follow up with Dr Rubio in [address] Ritchie as directed. Please continue a liquid diet for the next few days and then slowly advance to soft bland food. Activity as Tolerated: Yes Discharge Diet: Liquid Diet Return to The Hospital For: Worsening abd pain, fever, inability to keep down oral intake, or if you feel you are getting worse. FRANCIS HARRY MD September 09, 2017 09:11
--- NOTE | 2017-09-09 09:14 | Discharge Summary-Hospitalist ---
Diagnosis/Chief Complaint Date of Admission September 05, 2017 at 04:00 Date of Discharge Discharge Date: September 09, 2017 Admission Diagnosis Diverticulitis Discharge Diagnosis Diverticulitis (1) Sigmoid diverticulitis Status: Acute Assessment & Plan: BC NGTD CLD Pain well controlled transition to cipro and flagyl to complete oral course at home Leukocytosis resolved Surgery consulted, appreciate assistance (2) Essential (primary) hypertension Assessment & Plan: Resume home meds (3) Bright red blood per rectum Assessment & Plan: Surgery consulted, appreciate assistance Hgb normal Will need colonoscopy as outpatient Discharge Summary Procedures/Consulations Dr Ritchie- Surgery Discharge Physical Exam Allergies: Coded Allergies: morphine (Unverified Adverse Reaction, Mild, 06/23/07) Vitals & I&Os Vital Signs Date Time Temp Pulse Resp B/P (MAP) Pulse Ox O2 Delivery O2 Flow Rate FiO2 09/09/17 08:30 98.1 58 20 122/78 (93) 97 Room Air General Appearance: Alert, Oriented X3 Respiratory: Clear to Auscultation Cardiovascular: Regular Rate Abdominal: Normal Bowel Sounds Hospital Course Pt presented with abdominal pain and was found to have acute diverticulitis. He was admitted for IV abx. His symptoms improved slowly and on day 4 of admission he was tolerating his diet and pain was controlled with his oral pain medications. He was discharged home in stable condition. He is to follow up with his PCP in [address] Ritchie as scheduled as he will need a colonoscopy to follow this up in a few weeks. He was discharged with Cipro and Flagyl. He is to continue on a clear liquid diet for the next few days and slowly resume a solid diet. On day of discharge he was much improved and requesting DC home. Labs (last 24 hrs) Laboratory Tests 09/09/17 05:50: White Blood Count 8.7, Red Blood Count 4.71, Hemoglobin 14.5, Hematocrit 41, Mean Corpuscular Volume 87, Mean Corpuscular Hemoglobin 31, Mean Corpuscular Hemoglobin Concent 36, Red Cell Distribution Width 12.4, Platelet Count 348, Mean Platelet Volume 10.2, Neutrophils (%) (Auto) 63, Lymphocytes (%) (Auto) 23 , Monocytes (%) (Auto) 12, Eosinophils (%) (Auto) 2, Basophils (%) (Auto) 1, Neutrophils # (Auto) 5.5, Lymphocytes # (Auto) 2.0, Monocytes # (Auto) 1.0, Eosinophils # (Auto) 0.2, Basophils # (Auto) 0.1 Microbiology 09/05/17 Blood Culture - Preliminary, Resulted No growth Patient resulted labs reviewed. Pending Labs Laboratory Tests 09/09/17 05:50: White Blood Count 8.7, Red Blood Count 4.71, Hemoglobin 14.5, Hematocrit 41, Mean Corpuscular Volume 87, Mean Corpuscular Hemoglobin 31, Mean Corpuscular Hemoglobin Concent 36, Red Cell Distribution Width 12.4, Platelet Count 348, Mean Platelet Volume 10.2, Neutrophils (%) (Auto) 63, Lymphocytes (%) (Auto) 23 , Monocytes (%) (Auto) 12, Eosinophils (%) (Auto) 2, Basophils (%) (Auto) 1, Neutrophils # (Auto) 5.5, Lymphocytes # (Auto) 2.0, Monocytes # (Auto) 1.0, Eosinophils # (Auto) 0.2, Basophils # (Auto) 0.1 Discussion & Recommendations Discharge Planning: <30 minutes discharge planning Discharge Home Medications: Active Scripts Active Cipro (Ciprofloxacin HCl) 500 Mg Tablet 500 Mg PO BID Flagyl (Metronidazole) 500 Mg Tablet 500 Mg PO TID Reported Diazepam 5 Mg Tablet 5 Mg PO TID PRN Gabapentin 600 Mg Tablet 600 Mg PO HS Zolpidem Tartrate 10 Mg Tablet 10 Mg PO HS Allopurinol 300 Mg Tablet 300 Mg PO DAILY Metoprolol Succinate 50 Mg Tab.er.24h 50 Mg PO HS Hydrocodon-Acetaminophn 10-325 (Hydrocodone/Acetaminophen) 1 Each Tablet 1 Tab PO Q4H PRN Instructions to patient/family Please see electronic discharge instructions given to patient. Clinical Quality Measures DVT/VTE Risk/Contraindication: Risk Factor Score Per Nursin RFS Level Per Nursing on Admit: 3=High Copy Copies To 1: RUFINA MURPHY MD, KATELYN M MD September 09, 2017 9:14 am
[2017-09-09] MEDS ORDERED: IRON DEXTRAN INJECTION 1,000 MG in NS (IVPB) 250 ML IV ONE (09:15)
[2017-09-09] MEDS ORDERED: RT-ALBUTEROL SULF 2.5 MG/3 ML PRE-MIX VIAL IH PRN (09:15)
[2017-09-09] MEDS ORDERED: HYDROCORTISONE 100 MG/2 ML (Solu-CORTEF) VIAL IV PRN (09:15)
[2017-09-09] MEDS ORDERED: IRON DEXTRAN INJECTION 25 MG in NS (IVPB) 5.75 ML IV ONE (09:15)
[2017-09-09] MEDS ORDERED: diphenhydrAMINE 50 MG/ML INJ (BENADRYL) IV PRN (09:15)
[2017-09-09] MEDS ORDERED: EPINEPHrine INJECTION 1 MG/ML AMP IM PRN (09:15)
[2017-09-09 11:41] VITALS: BP 121/79
[2017-09-09 12:10] VITALS: BP 121/79
--- NOTE | 2017-09-09 15:01 | Progress Note ---
Subjective Date Seen by Provider: September 09, 2017 Time Seen by Provider: 08:07 Subjective/Events-last exam Patient feels like he got the most rest last night. Not having any significant pain now. Tolerating diet. WBC down. Afebrile. Objective Exam Vital Signs Date Time Temp Pulse Resp B/P (MAP) Pulse Ox O2 Delivery O2 Flow Rate FiO2 09/09/17 12:10 52 20 121/79 96 Room Air 09/09/17 11:41 98.5 52 20 121/79 (93) 96 Room Air 09/09/17 08:30 98.1 58 20 122/78 (93) 97 Room Air 09/09/17 00:41 97.4 63 20 130/81 (97) 96 Room Air 09/08/17 16:10 98.6 66 18 124/78 (93) 95 Room Air I & O 09/09/17 07:00 Intake Total 1730 ml Output Total 3375 ml Balance -1645 ml Capillary Refill : Less Than 3 Seconds General Appearance: No Apparent Distress, WD/WN HEENT: PERRL/EOMI; No Scleral Icterus (L), No Scleral Icterus (R) Neck: Non Tender, Supple; No JVD, No Thyromegaly Respiratory: Lungs Clear, No Respiratory Distress Cardiovascular: Regular Rate, Rhythm, No Murmur Gastrointestinal: non tender, soft; No guarding, No rebound Extremity: Normal Capillary Refill, No Calf Tenderness, No Pedal Edema Neurologic/Psychiatric: Alert, Oriented x3, Normal Mood/Affect Skin: Normal Color, Warm/Dry, Tattoos/Piercings Lymphatic: No Adenopathy Results Lab Laboratory Tests 09/09/17 05:50: White Blood Count 8.7, Red Blood Count 4.71, Hemoglobin 14.5, Hematocrit 41, Mean Corpuscular Volume 87, Mean Corpuscular Hemoglobin 31, Mean Corpuscular Hemoglobin Concent 36, Red Cell Distribution Width 12.4, Platelet Count 348, Mean Platelet Volume 10.2, Neutrophils (%) (Auto) 63, Lymphocytes (%) (Auto) 23 , Monocytes (%) (Auto) 12, Eosinophils (%) (Auto) 2, Basophils (%) (Auto) 1, Neutrophils # (Auto) 5.5, Lymphocytes # (Auto) 2.0, Monocytes # (Auto) 1.0, Eosinophils # (Auto) 0.2, Basophils # (Auto) 0.1 Microbiology 09/05/17 Blood Culture - Preliminary, Resulted No growth Assessment/Plan Assessment/Plan Assessment/Plan 47-year-old male with left lower quadrant abdominal pain, diverticulitis Patient on IV antibiotics of Rocephin and Flagyl. convert to oral abx Slowly advance diet Ok to DC home Will need colonoscopy in approximately 6-8 weeks. Clinical Quality Measures DVT/VTE Risk/Contraindication: Risk Factor Score Per Nursin RFS Level Per Nursing on Admit: 3=High YANIQUE ARCEO DO September 09, 2017 15:01
[2017-10-18] MEDS ORDERED: GABA-488 PO (10:53)
== END 2017-09-09 12:10 | disposition home or self-care (01) | DRG 392 ==
LOC: EDUNIT# 02:04 → ER 02:06 → 4TH 04:00
PROVIDERS: ADMIT Internal Medicine; ATTEND Internal Medicine
DX: K57.32 Diverticulitis of large intestine without perforation or abscess without bleeding (principal); I10 Essential (primary) hypertension; K62.5 Hemorrhage of anus and rectum
CPT/HCPCS: 36415; 74177; 80048; 80053; 81000; 83605; 85007; 85025; 85027; 86141; 87040; 96361; 96365; 96375

== ENCOUNTER 2017-10-18 11:00 | Outpatient (CLI) | payer SELFPAY ==
[~2017-10-18] VITALS: Ht 188 cm; Wt 108.0 kg
[~2017-10-18 11:00] MED LIST changes: +ALLO300T2 PO; +CIPR-225 PO; +DIAZ5TAB3 PO; +GABA-488 PO; +GABA600T2 PO; +HYDR-3820 PO; +METO-370 PO; +METR500T PO; +ZOLP10TA5 PO
== END 2017-10-18 11:56 ==
LOC: PREOP 11:00
PROVIDERS: ATTEND Surgery
DX: Z01.818 Encounter for other preprocedural examination (principal); K57.92 Diverticulitis of intestine, part unspecified, without perforation or abscess without bleeding

== ENCOUNTER 2017-10-24 09:35 | Day surgery (SDC) | payer OTHER ==
[~2017-10-24] VITALS: Ht 188 cm; Wt 108.0 kg
[2017-10-24 09:37] VITALS: BP 131/92
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
[2017-10-24] MEDS ORDERED: LACTATED RINGERS 1,000 ML IV ONE (09:44)
[2017-10-24] MEDS ORDERED: LACTATED RINGERS 1,000 ML IV STA (09:58)
[2017-10-24] MEDS ORDERED: PROPOFOL INJECTION 50 ML IV ONE (10:44)
[2017-10-24] MEDS ORDERED: MIDAZOLAM 2 MG/2 ML (VERSED) VIAL ONE (10:45)
--- NOTE | 2017-10-24 10:49 | Progress Note-Pre Operative ---
Pre-Operative Progress Note H&P Reviewed The H&P was reviewed, patient examined and no changes noted. Date Seen by Provider: Oct 24, 2017 Time Seen by Provider: 10:49 Date H&P Reviewed: Oct 24, 2017 Time H&P Reviewed: 10:49 Pre-Operative Diagnosis: history diverticulitis YANIQUE ARCEO DO Oct 24, 2017 10:49
[2017-10-24] MEDS ORDERED: ESMOLOL 100 MG/10 ML (BREVIBLOC) VIAL ONE (11:03)
--- NOTE | 2017-10-24 11:50 | Progress Note-Post Operative ---
Post-Operative Progess Note Surgeon (s)/Fermenter Champagne (s) Surgeon YANIQUE ARCEO DO Fermenter Champagne: na Pre-Operative Diagnosis history diverticulitis Post-Operative Diagnosis colon polyps, diverticulosis Procedure & Operative Findings Date of Procedure 10/24/17 Procedure Performed/Findings colonoscopy c hot bx polypectomy x 2 and snare polypectomy x 3 with mary inking 2 mL of Distal descending colon polyp Anesthesia Type per [facility] Estimated Blood Loss Estimated blood loss (mL): none Specimens/Packing Specimens Removed cecum, transverse, descending x 2, sigmoid colon polyps YANIQUE ARCEO DO Oct 24, 2017 11:50
--- NOTE | 2017-10-24 11:52 | Discharge Inst-Simple/Standard ---
Discharge Inst-Standard Patient Instructions/Follow Up Plan of Care/Instructions/FU: 2 weeks Chau Activity as Tolerated: Yes Discharge Diet: Regular Diet (HIGH FIBER) YANIQUE ARCEO DO Oct 24, 2017 11:52
[2017-10-24 12:05] VITALS: BP 121/74
[2017-10-24 12:35] VITALS: BP 117/89
--- NOTE | 2017-10-24 16:01 | Anesthesia-General Post-Op ---
MAC Patient Condition Mental Status/LOC: Same as Preop Cardiovascular: Satisfactory Nausea/Vomiting: Absent Respiratory: Satisfactory Pain: Controlled Complications: Absent Post Op Complications Complications None Follow Up Care/Instructions Patient Instructions None needed. Anesthesiology Discharge Order Discharge Order Patient was seen after the procedure and he was doing well, no complaints, stable vital signs, no apparent adverse anesthesia problems. DAVIS GUDINO DO Oct 24, 2017 16:01
--- NOTE | 2017-10-24 23:02 | OPERATIVE REPORT ---
DATE OF SERVICE: 10/24/2017 PREOPERATIVE DIAGNOSIS: History of diverticulitis. POSTOPERATIVE DIAGNOSIS: Diverticulosis and colon polyps. PROCEDURE: Colonoscopy with hot biopsy polypectomy x2 and snare polypectomy x3 and Karena inking 2 mL at distal descending colon polyp. SURGEON: Yanique Ritchie DO. ANESTHESIA: Per MDA. ESTIMATED BLOOD LOSS: None. COMPLICATIONS: None. INDICATIONS: The patient is a 47-year-old male with a recent history of diverticulitis. He was recommended to have colonoscopy for further evaluation. He understands risks and benefits of procedure and wished to proceed with procedure. Consent was signed on the chart. DESCRIPTION OF PROCEDURE: The patient was taken to the endoscopy suite, placed in left lateral recumbent position. Timeout was performed. Scope was inserted. Digital rectal exam was performed. There were no palpable polyps, masses or ulcerations. The scope was inserted into the rectum and advanced all the way to the cecum with minimal difficulty. Prep was adequate. In the cecum, a small polyp was present, which hot biopsy polypectomy was performed. Scope was then slowly retracted back. There were no polyps, masses or ulcerations within the ascending colon. In the transverse colon, there was a small polyp, which hot biopsy polypectomy was performed. Scope was continuously retracted back through the transverse colon without noting any other pathology. In the proximal portion of the descending colon, a larger greater than 1 cm polyp that was pedunculated was present. Snare polypectomy was performed. Just distal to this, an even larger polyp was present, which snare polypectomy was performed as well. At the distal descending colon polyp, total of 2 mL of Karena ink were injected in two locations at this level. Scope was continued to be slowly retracted back into the sigmoid colon where they were began to begin noting moderate amount of diverticulosis present. A third pedunculated polyp was present, which snare polypectomy was performed. Scope was then continuously retracted back into the rectum, where it was also retroflexed noting no other pathology. Scope was returned to its normal position, slowly withdrawn until completely removed. The patient tolerated the procedure well without any complications. He was taken to recovery room in stable condition. RECOMMENDATIONS: The patient to follow up in the office in 2 weeks to discuss pathology results. The patient will need repeat colonoscopy in 6 months to reevaluate due to the number and large size of polyps. If he has any problems before that, he should be seen at that time. Job ID: [id number] DocumentID: [id number] Dictated Date: 10/24/2017 11:56:08 Taxonomy Teacher Date: 10/24/2017 23:01:18 Dictated By: YANIQUE RITCHIE DO
== END 2017-10-24 12:35 | disposition home or self-care (01) ==
LOC: ENDO 09:35
PROVIDERS: ATTEND Surgery
DX: D12.0 Benign neoplasm of cecum (principal); D12.3 Benign neoplasm of transverse colon; D12.4 Benign neoplasm of descending colon; D12.5 Benign neoplasm of sigmoid colon; K57.30 Diverticulosis of large intestine without perforation or abscess without bleeding; I10 Essential (primary) hypertension; Z79.899 Other long term (current) drug therapy

== ENCOUNTER 2020-10-14 19:23 | Emergency (ER) | payer SELFPAY ==
[~2020-10-14] VITALS: Ht 185.4 cm; Wt 112.4 kg
[~2020-10-14 19:23] MED LIST changes: +ACHYD1T PO; -DIAZ5TAB3 PO; +DIAZ5TAB49 PO; -GABA600T2 PO; +GBPN600T PO; -HYDR-3820 PO; -METO-370 PO; +METO50TA7 PO
[2020-10-14] MEDS ORDERED: oxyCODONE/APAP 5/325MG (PERCOCET 5) TABLET PO ONE (19:45)
[2020-10-14] MEDS ORDERED: LIDOCAINE 1% INJ 20 ML 20 ML VIAL INJ ONE (19:45)
[2020-10-14] MEDS ORDERED: TETANUS,DIPTH,PERTUSS P/F (BOOSTRIX) 0.5 ML VIAL IM ONE (19:45)
--- NOTE | 2020-10-14 19:50 | Diagnostic Imaging Report ---
Indication: Left hand injury 3 views of left hand show nondisplaced oblique fractures of the francois of the distal phalanges of the 3rd and 4th fingers. IMPRESSION: Nondisplaced tuft fractures distal phalanges left 3rd and 4th fingers. Dictated by: Dictated on workstation # [id number]
[2020-10-14] MEDS ORDERED: TRIM/SULFAMETH 160/800 (SEPTRA DS) TAB PO ONE (20:45)
[2020-10-14] MEDS ORDERED: SULF1TAB35 PO (20:50)
--- NOTE | 2020-10-14 20:50 | ED Upper Extremity ---
General Chief Complaint: Upper Extremity Stated Complaint: SMASHED FINGERS Source: patient Exam Limitations: no limitations History of Present Illness Date Seen by Provider: Oct 14, 2020 Time Seen by Provider: 19:30 Initial Comments This 50-year-old gentleman presents to the emergency room with crush injury to the third and fourth fingertips of the left hand. A steel plate came down on his fingertips, crushing them and trapping them. He was able to lift the plate off his hand. He has breaks to the skin at the nailbed bilaterally. He denies any other injury. Capillary refill and sensation are intact in the fingertips. The nail on the fourth finger has evulsed from the nailbed but is still attached on the lateral edges. He is not up-to-date on his tetanus immunizations. Allergies and Home Medications Allergies Coded Allergies: morphine (Verified Allergy, Mild, N/V, 10/24/17) Home Medications Allopurinol 300 Mg Tablet, 300 MG PO DAILY, (Reported) Diazepam 5 Mg Tablet, 5 MG PO TID PRN for ANXIETY, (Reported) Gabapentin 300 Mg Capsule, 300 MG PO BID, (Reported) Hydrocodone Bit/Acetaminophen 1 Each Tablet, 1 TAB PO Q4H PRN for PAIN-MODERATE, (Reported) Metoprolol Succinate 50 Mg Tab.er.24h, 50 MG PO HS, (Reported) Sulfamethoxazole/Trimethoprim 1 Each Tablet, 1 EACH PO BID Prescribed by: CHRISTIAN LOPEZ on 10/14/202049 Zolpidem Tartrate 10 Mg Tablet, 10 MG PO HS, (Reported) Patient Home Medication List Home Medication List Reviewed: Yes Review of Systems Constitutional: no symptoms reported EENTM: no symptoms reported Respiratory: no symptoms reported Cardiovascular: no symptoms reported Gastrointestinal: no symptoms reported Genitourinary: no symptoms reported Musculoskeletal: see HPI Skin: see HPI Psychiatric/Neurological: No Symptoms Reported Past Lygqoeu-Iuejcz-Fakbly Hx Past Med/Social Hx: Reviewed Nursing Past Med/Soc Hx Patient Social History 2nd Hand Smoke Exposure: Yes Recent Hopitalizations: Yes (DIVERTICULITIS SEPTEMBER 2016) Immunizations Up To Date Tetanus Booster (TDap): Less than 5yrs Date of Influenza Vaccine: Feb 20, 2017 Seasonal Allergies Seasonal Allergies: No Past Medical History Surgeries: Yes (APPY, DISC SURG, amputation of index finger rt hand) Amputation, Appendectomy, Orthopedic Respiratory: No Cardiac: Yes High Cholesterol, Hypertension Neurological: No Neuropathy Reproductive Disorders: No Sexually Transmitted Disease: No HIV/AIDS: No Genitourinary: No Gastrointestinal: Yes Abdominal Hernia Musculoskeletal: Yes (chronic neck pain) Chronic Back Pain, Gout Endocrine: No HEENT: No Cancer: No Psychosocial: No Integumentary: No Blood Disorders: No Family Medical History Patient reports no known family medical history. No Pertinent Family Hx Unknown family history as patient is adopted Physical Exam Vital Signs Vital Signs - First Documented 10/14/20 19:25 Temp 36.2 Pulse 75 Resp 18 B/P (MAP) 137/96 (110) Pulse Ox 94 O2 Delivery Room Air Capillary Refill : Height, Weight, BMI Height: 6'2.00" Weight: 238lbs. 0.0oz. [id number]; 30.6 BMI Method:Stated General Appearance: WD/WN, mild distress HEENT: normal ENT inspection Cardiovascular: regular rate, rhythm, no edema, no murmur Respiratory: lungs clear, normal breath sounds Elbow/Forearm: normal inspection, no evidence of injury Wrist: Yes normal inspection, Yes no evidence of injury Hand: Left (Swelling, ecchymosis, and tenderness to the tips of the third and fourth fingers. There is bleeding around the nailbeds on each finger but no significant laceration. Superficial skin of the cuticles have been stripped back. The nail of the fourth finger has avulsed from the bed but is still intact on the lateral edges. Capillary refill and sensation intact.) Neurologic/Tendon: normal sensation, normal motor functions Neurologic/Psychiatric: no motor/sensory deficits, alert, normal mood/affect, oriented x 3 Skin: normal color, warm/dry, ecchymosis Progress/Results/Core Measures Results/Orders My Orders Orders - CHRISTIAN LAM MD Hand, Left, 3 Views (10/14/20 19:35) Oxycodone/Apap 5/325mg Tablet (Percocet (10/14/20 19:45) Dipht,Pertuss(Acell),Tet Adult (Boostrix (10/14/20 19:45) Lidocaine 1% Inj 20 Ml (Xylocaine 1% Inj (10/14/20 19:45) Sulfamethoxazole/Trimet Ds Tab (Bactrim (10/14/20 20:45) Medications Given in ED Progress Progress Note : Progress Note Patient was given Percocet for pain and a tetanus booster was administered. Digital block was performed on each finger after scrubbing the skin with alcohol swabs. Wounds were then scrubbed and rinsed with chlorhexidine and sterile saline. The avulsed nail on the fourth finger was reinserted into the nailbed. Wounds were dressed with antibiotic ointment and Xeroform gauze. They were then wrapped in sterile gauze and a fiberglass splint was fashioned. Since there were breaks in the skin overlying the fractures, antibiotics were administered and prescribed. Diagnostic Imaging Diagonstic Imaging: Xray Plain Films/CT/US/NM/MRI: hand Comments X-rays viewed by me and reports reviewed. See report below: NAME: [facility] REC#: [id number] PT STATUS: REG ER : 1970 PHYSICIAN: CHRISTIAN LAM MD ADMIT DATE: 10/14/20/ER Signed Date of Exam:10/14/20 HAND, LEFT, 3 VIEWS Indication: Left hand injury 3 views of left hand show nondisplaced oblique fractures of the francois of the distal phalanges of the 3rd and 4th fingers. IMPRESSION: Nondisplaced tuft fractures distal phalanges left 3rd and 4th fingers. Dictated by: Dictated on workstation # [id number] Dict: 10/14/201947 Trans: 10/14/201948 [facility] [id number] Interpreted by: GARTH ROBLEDO MD Electronically signed by: GARTH ROBLEDO MD 10/14/201948 Departure Impression Primary Impression: Open fracture of tuft of distal phalanx of finger Additional Impression: Fingernail avulsion Qualified Codes: S61.309A - Unspecified open wound of unspecified finger wi th damage to nail, initial encounter Disposition: 01 HOME, SELF-CARE Condition: Improved Departure-Patient Inst. Decision time for Depature: 20:47 Referrals: RUFINA MURPHY MD (PCP/Family) Primary Care Physician JAKUB AVILA MD, MICHAEL P MD Patient Instructions: Finger Fracture, Nail Avulsion Add. Discharge Instructions: Keep your fingers in the splint until you follow-up in the ER in 24 to 48 hours for a wound check and redressing. Complete your antibiotics as prescribed. Keep the wound clean and dry except for rinsing with soapy water when washing your hands. Do not submerge for at least 1 week. Monitor for signs of infection such as increasing redness, increasing swelling, puslike drainage, increasing pain, or fever. Return to care promptly if you notice the symptoms. Protect the fingers with a splint for about 6 weeks. The fractures of your fin gertips will take about that long to heal. You may use your usual pain medications at home to treat the pain. Additionally you may ice in 20-minute intervals and elevate to help manage pain and swelling. Call if you have any questions or concerns. Return to the emergency room if you have any worsening of symptoms. You should follow-up with your primary care provider or an orthopedic surgeon in about a week or so to monitor healing. All discharge instructions reviewed with patient and/or family. Voiced und erstanding. Scripts Sulfamethoxazole/Trimethoprim (Bactrim Ds Tablet) 1 Each Tablet 1 EACH PO BID, #14 TAB Prov: CHRISTIAN LAM MD 10/14/20 Copy Copies To 1: RUFINA MURPHY MD, JOSHUA T MD Oct 14, 2020 20:50
[2020-10-14 21:07] VITALS: BP 137/96
== END 2020-10-14 21:07 | disposition home or self-care (01) ==
LOC: EDUNIT# 19:23 → ER 19:25
DX: S62.663B Nondisplaced fracture of distal phalanx of left middle finger, initial encounter for open fracture (principal); S62.665B Nondisplaced fracture of distal phalanx of left ring finger, initial encounter for open fracture; I10 Essential (primary) hypertension; G89.29 Other chronic pain; M54.9 Dorsalgia, unspecified; M10.9 Gout, unspecified; Z23 Encounter for immunization; Z77.22 Contact with and (suspected) exposure to environmental tobacco smoke (acute) (chronic); Z79.891 Long term (current) use of opiate analgesic; Z79.899 Other long term (current) drug therapy; W23.1XXA Caught, crushed, jammed, or pinched between stationary objects, initial encounter
CPT/HCPCS: 29130; 64450; 73130; 90715

== ENCOUNTER 2020-10-15 19:42 | Emergency (ER) | payer SELFPAY ==
[~2020-10-15] VITALS: Ht 185.5 cm; Wt 112.7 kg
[~2020-10-15 19:42] MED LIST changes: +SULF1TAB35 PO
[2020-10-15 19:55] VITALS: BP 132/87
--- NOTE | 2020-10-15 20:26 | ED Suture Removal/Wound Check ---
Suture/Wound Re-check Suture Removal/Wound Recheck : Progress Patient presents for dressing change after having a crush injury with fractures to his left third and fourth fingertips yesterday. His splint was unwrapped and taken down. Dressings were removed. Wound was examined. Antibiotic ointment was reapplied along with Xeroform gauze. His fingers were then wrapped in sterile gauze and the splint replaced. See discharge instructions. Physical Exam Vital Signs Vital Signs - First Documented 10/15/20 19:55 Temp 36.6 Pulse 61 Resp 18 B/P (MAP) 132/87 Pulse Ox 98 O2 Delivery Room Air Capillary Refill : General Appearance: WD/WN, no apparent distress Extremities: other (Fingertips are pink. He retains sensation. There is no active bleeding.) Departure Impression Primary Impression: Open fracture of tuft of distal phalanx of finger Disposition: HOME, SELF-CARE Condition: Improved Departure-Patient Inst. Decision time for Depature: 20:10 Referrals: RUFINA MURPHY MD (PCP/Family) Primary Care Physician Patient Instructions: Finger Fracture Add. Discharge Instructions: Take down the splint tomorrow and start leaving your fingers open to air when at rest as much as possible. Eventually transition to the AlumaFoam splints to allow the wounds to breathe better. Continue with antibiotics as previously prescribed. Follow-up with your primary care provider or an orthopedic provider soon as possible to monitor healing. Continue other instructions as previously directed on your first ER visit. All discharge instructions reviewed with patient and/or family. Voiced understanding. CHRISTIAN LAM MD Oct 15, 2020 20:26
== END 2020-10-15 20:36 | disposition home or self-care (01) ==
LOC: EDUNIT# 19:42 → ER 19:44
DX: Z48.00 Encounter for change or removal of nonsurgical wound dressing (principal)

== ENCOUNTER 2020-10-28 14:23 | Emergency (ER) | payer SELFPAY ==
[~2020-10-28] VITALS: Ht 188 cm; Wt 112.4 kg
--- NOTE | 2020-10-28 14:58 | ED Respiratory ---
General Chief Complaint: Respiratory Problems Stated Complaint: SOB,CHILLS,FEVER,HARPER,SORE THROAT Source: patient Exam Limitations: no limitations History of Present Illness Date Seen by Provider: Oct 28, 2020 Time Seen by Provider: 14:58 Initial Comments This is a 50-year-old male who presents to the ER with complaints of cough, headache, chills, chest pain over the past few days. States that his tested positive for COVID 4 days ago. Has not had any COVID vaccines. Chest pain is located just below his bilateral anterior rib region, sharp in nature, worse when he coughs. Has taken Hydrocodone at home a couple hours [employer], however this has not helped his symptoms. Allergies and Home Medications Allergies Coded Allergies: morphine (Verified Allergy, Mild, N/V, 10/24/17) Home Medications Albuterol Sulfate 1 Puff Puff, 2 PUFF INH Q4H PRN for SHORTNESS OF BREATH 1 PUFF = 90 MCG Prescribed by: HALLE EDGE on 10/28/201834 Allopurinol 300 Mg Tablet, 300 MG PO DAILY, (Reported) Azithromycin 250 Mg Tablet, 250 MG PO DAILY Prescribed by: HALLE EDGE on 10/28/201812 Diazepam 5 Mg Tablet, 5 MG PO TID PRN for ANXIETY, (Reported) Gabapentin 300 Mg Capsule, 300 MG PO BID, (Reported) Hydrocodone Bit/Acetaminophen 1 Each Tablet, 1 TAB PO Q4H PRN for PAIN-MODERATE, (Reported) Methylprednisolone 4 Mg Tab.ds.pk, 4 MG PO UD PER DOSE PACK INSTRUCTIONS Prescribed by: HALLE EDGE on 10/28/201812 Metoprolol Succinate 50 Mg Tab.er.24h, 50 MG PO HS, (Reported) Sulfamethoxazole/Trimethoprim 1 Each Tablet, 1 EACH PO BID Prescribed by: CHRISTIAN LOPEZ on 10/14/202049 Zolpidem Tartrate 10 Mg Tablet, 10 MG PO HS, (Reported) Patient Home Medication List Home Medication List Reviewed: Yes Review of Systems Review of Systems Constitutional: chills, fever, malaise, weakness EENTM: throat pain Respiratory: cough, short of breath Cardiovascular: see HPI Gastrointestinal: see HPI, loss of appetite Genitourinary: no symptoms reported Musculoskeletal: see HPI Skin: no symptoms reported Psychiatric/Neurological: No Symptoms Reported Hematologic/Lymphatic: No Symptoms Reported Immunological/Allergic: no symptoms reported Past Cwrlndo-Fkvfac-Pffuxd Hx Patient Social History 2nd Hand Smoke Exposure: Yes Recent Hopitalizations: Yes (DIVERTICULITIS SEPTEMBER 2016) Immunizations Up To Date Tetanus Booster (TDap): Unknown PED Vaccines UTD: Yes Date of Influenza Vaccine: Feb 20, 2017 Seasonal Allergies Seasonal Allergies: No Past Medical History Surgeries: Yes (APPY, DISC SURG, amputation of index finger rt hand) Amputation, Appendectomy, Orthopedic Respiratory: No Cardiac: Yes High Cholesterol, Hypertension Neurological: Yes Neuropathy Reproductive Disorders: No Sexually Transmitted Disease: No HIV/AIDS: No Genitourinary: No Gastrointestinal: Yes Abdominal Hernia Musculoskeletal: Yes (chronic neck pain) Chronic Back Pain, Gout Endocrine: No HEENT: No Cancer: No Psychosocial: No Integumentary: No Blood Disorders: No Family Medical History Patient reports no known family medical history. No Pertinent Family Hx Unknown family history as patient is adopted Physical Exam Vital Signs - First Documented 10/28/20 14:30 Temp 37.9 Pulse 69 Resp 15 B/P (MAP) 145/94 (111) Pulse Ox 95 O2 Delivery Room Air Capillary Refill : Height: 6'2.00" Weight: 238lbs. 0.0oz. 107.440135aa; 32.00 BMI Method:Estimated General Appearance: WD/WN, no apparent distress Eyes: Bilateral Eye Normal Inspection, Bilateral Eye PERRL, Bilateral Eye EOMI HEENT: PERRL/EOMI, normal ENT inspection, TMs normal, pharynx normal Neck: full range of motion, supple, normal inspection Respiratory: no respiratory distress, no accessory muscle use, decreased breath sounds, rales Cardiovascular: normal peripheral pulses, regular rate, rhythm, no edema Gastrointestinal: normal bowel sounds, non tender, soft Extremities: normal range of motion, non-tender, normal inspection Neurologic/Psychiatric: no motor/sensory deficits, alert, normal mood/affect, oriented x 3 Skin: normal color, warm/dry Progress/Results/Core Measures Suspected Sepsis SIRS Temperature: Pulse: Respiratory Rate: Laboratory Tests 10/28/20 14:42: White Blood Count 9.6 Blood Pressure / Mean: Laboratory Tests 10/28/20 14:42: Creatinine 1.06, Platelet Count 209, Total Bilirubin 0.5 10/28/20 15:49: INR Comment 0.9 Results/Orders Lab Results Laboratory Tests Test 10/28/20 14:40 10/28/20 14:42 10/28/20 15:49 Range/Units Influenza Type A (RT-PCR) Not Detected Not Detecte Influenza Type B (RT-PCR) Not Detected Not Detecte SARS-CoV-2 RNA (RT-PCR) Detected H Not Detecte White Blood Count 9.6 4.3-11.0 10^3/uL Red Blood Count 5.20 4.30-5.52 10^6/uL Hemoglobin 16.1 13.3-17.7 g/dL Hematocrit 46 40-54 % Mean Corpuscular Volume 89 80-99 fL Mean Corpuscular Hemoglobin 31 25-34 pg Mean Corpuscular Hemoglobin Concent 35 32-36 g/dL Red Cell Distribution Width 12.5 10.0-14.5 % Platelet Count 209 130-400 10^3/uL Mean Platelet Volume 10.7 9.0-12.2 fL Immature Granulocyte % (Auto) 1 % Neutrophils (%) (Auto) 73 42-75 % Lymphocytes (%) (Auto) 21 12-44 % Monocytes (%) (Auto) 5 0-12 % Eosinophils (%) (Auto) 0 0-10 % Basophils (%) (Auto) 0 0-10 % Neutrophils # (Auto) 7.0 1.8-7.8 10^3/uL Lymphocytes # (Auto) 2.1 1.0-4.0 10^3/uL Monocytes # (Auto) 0.5 0.0-1.0 10^3/uL Eosinophils # (Auto) 0.0 0.0-0.3 10^3/uL Basophils # (Auto) 0.0 0.0-0.1 10^3/uL Immature Granulocyte # (Auto) 0.1 0.0-0.1 10^3/uL Sodium Level 141 135-145 MMOL/L Potassium Level 3.6 3.6-5.0 MMOL/L Chloride Level 108 H 98-107 MMOL/L Carbon Dioxide Level 20 L 21-32 MMOL/L Anion Gap 13 5-14 MMOL/L Blood Urea Nitrogen 12 7-18 MG/DL Creatinine 1.06 0.60-1.30 MG/DL Estimat Glomerular Filtration Rate > 60 BUN/Creatinine Ratio 11 Glucose Level 93 70-105 MG/DL Calcium Level 8.4 L 8.5-10.1 MG/DL Corrected Calcium 8.6 8.5-10.1 MG/DL Magnesium Level 1.9 1.6-2.4 MG/DL Ferritin 733.4 H 32.0-356.0 ng/mL Total Bilirubin 0.5 0.1-1.0 MG/DL Aspartate Amino Transf (AST/SGOT) 27 5-34 U/L Alanine Aminotransferase (ALT/SGPT) 35 0-55 U/L Alkaline Phosphatase 76 40-136 U/L Lactate Dehydrogenase 233 H 125-220 U/L Creatine Kinase MB 1.1 <6.6 NG/ML Myoglobin 122.7 H 10.0-92.0 NG/ML Troponin I < 0.028 <0.028 NG/ML C-Reactive Protein High Sensitivity 1.57 H 0.00-0.50 MG/DL Total Protein 6.9 6.4-8.2 GM/DL Albumin 3.8 3.2-4.5 GM/DL Prothrombin Time 13.0 12.2-14.7 SEC INR Comment 0.9 0.8-1.4 Activated Partial Thromboplast Time 28 24-35 SEC Fibrinogen 458 221-496 MG/DL D-Dimer 1.23 H 0.00-0.49 UG/ML My Orders Orders - HALLE EDGE APRN Vital Signs: Every 4 Hours (Or (10/28/20 14:56) Monitor-Rhythm Ecg Trace Only (10/28/20 14:56) Ed Iv/Invasive Line Start (10/28/20 14:56) Cbc With Automated Diff (10/28/20 14:56) Comprehensive Metabolic Panel (10/28/20 14:56) Ferritin (10/28/20 14:56) LDH (10/28/20 14:56) Hs C Reactive Protein (10/28/20 14:56) Troponin I (10/28/20 14:56) Creatine Kinase Mb (10/28/20 14:56) Protime With Inr (10/28/20 14:56) Partial Thromboplastin Time (10/28/20 14:56) Fibrin Degradation Products (10/28/20 14:56) Fibrinogen (10/28/20 14:56) Ekg Tracing (10/28/20 14:56) Chest 1 View, Ap/Pa Only (10/28/20 14:56) Acetaminophen Tablet/Caplet (Tylenol T (10/28/20 15:00) Magnesium (10/28/20 14:56) Myoglobin Serum (10/28/20 14:56) O2 (10/28/20 14:56) Blood Culture (10/28/20 14:56) Covid 19 Inhouse Test (10/28/20 16:05) Influenza A And B By Pcr (10/28/20 16:05) Ct Angio Chest W (10/28/20 17:02) Iohexol Injection (Omnipaque 350 Mg/Ml 1 (10/28/20 17:30) Received Contrast (Hold Metformin- Contr (10/28/20 17:30) Ns (Ivpb) (Sodium Chloride 0.9% Ivpb Bag (10/28/20 17:30) Azithromycin Tablet (Zithromax Tablet) (10/28/20 18:15) Dexamethasone Injection (Decadron Inje (10/28/20 18:15) Medications Given in ED Vital Signs/I&O 10/28/20 10/28/20 14:30 19:06 Temp 37.9 Pulse 69 73 Resp 15 18 B/P (MAP) 145/94 (111) 117/85 Pulse Ox 95 93 O2 Delivery Room Air Room Air Capillary Refill : Progress Note : Progress Note Patient examined and in no acute distress. Oxygen saturation on room air 95-96%, no respiratory distress. Orders placed for Tylenol 650mg PO for fever/pain. Initiated cardiac and COVID workup. Tenderness in chest is more consistent with respiratory origin versus cardiac. CXR shows probable left lung infiltrate. Labs reviewed, has + COVID test. CBC unremarkable. Elevated D-dimer, Ferritin, CRP, LDH, consistent with COVID. Reviewed risks/benefits of obtaining CT angio chest due to elevated D-Dimer and history of COVID. He is agreeable with CTa chest. CTa chest neg for PE, has patchy groundglass opacities throughout both lungs compatible with history of Covid 19 and pneumonia. Given first dose of Azithromycin 500mg PO and Decadron 6mg prior to discharge. Reviewed discharge POC and he is agreeable with plan. VSS. To return to ED if his symptoms worsen. ECG Initial ECG Impression Date: Oct 28, 2020 Initial ECG Impression Time: 14:52 Initial ECG Rate: 71 Initial ECG Rhythm: Normal Sinus Initial ECG Intervals: Normal Initial ECG Impression: Nonspecific Changes Initial ECG Comparisson: No Previous ECG Available Diagnostic Imaging Diagonstic Imaging: Xray Plain Films/CT/US/NM/MRI: chest Comments [facility] [place] NAME: [facility] REC#: [id number] PT STATUS: REG ER : 1970 PHYSICIAN: HALLE EDGE APRN ADMIT DATE: 10/28/20/ER Signed Date of Exam:10/28/20 CHEST 1 VIEW, AP/PA ONLY HISTORY: Shortness of air, COVID positive. TECHNIQUE: Single frontal view of the chest. COMPARISON: 06/22/2007. FINDINGS: Lung volumes are normal. There is subtle increased opacity in the left midlung. There is no pleural effusion or pneumothorax. The cardiac silhouette is normal in size. Cervical spine fusion hardware is noted. IMPRESSION: 1. Subtle increased opacity in the left midlung, may represent atelectasis or infiltrate. Dictated by: Dictated on workstation # [id number] Dict: 10/28/20 1549 Trans: 10/28/20 1556 [id number] Interpreted by: ANNALISA TARIQ MD Electronically signed by: ANNALISA TARIQ MD 10/28/20 1556 Reviewed: Reviewed by Ga Diagonstic Imaging: CT Plain Films/CT/US/NM/MRI: chest Comments [facility] [place] NAME: [facility] REC#: [id number] PT STATUS: REG ER : 1970 PHYSICIAN: HALLE EDGE APRN ADMIT DATE: 10/28/20/ER Signed Date of Exam:10/28/20 CT ANGIO CHEST W EXAMINATION: CT angiography of the chest. TECHNIQUE: Contrast enhanced thin section helical images were obtained through the chest with intravenous contrast timed for the optimal opacification of the arterial structures per CTA protocol. Post-processing, reconstructions and interpretation of angiographic images of the vessels was performed. 3D MIP reconstructions were performed and reviewed. All CT scans use one or more of the following dose optimizing techniques: automated exposure control, MA and/or KvP adjustment based on a patient size and exam type, or iterative reconstruction. HISTORY: Covid positive, shortness of breath and chest pain. COMPARISON: Chest radiograph 10/28/2020. FINDINGS: Vascular: No filling defects within the pulmonary arteries. Thoracic aorta is normal in caliber. Thyroid: The thyroid is normal. Mediastinum: Heart size is normal without significant pericardial effusion. No suspicious lymphadenopathy. Lungs and airways: There are patchy groundglass opacities throughout both lungs. No pleural effusion or pneumothorax. There is atelectasis within the lung bases. The airways are normal. Upper abdomen: The subphrenic structures are normal. Musculoskeletal: Degenerative changes of the spine without suspicious osseous lesion or compression fracture. Partially visualized cervical fusion hardware. IMPRESSION: 1. No findings of pulmonary embolus. 2. Patchy groundglass opacities throughout both lungs compatible with history of Covid 19 and pneumonia. Dictated by: Dictated on workstation # [id number] Dict: 10/28/20 1731 Trans: 10/28/20 1754 [facility] [id number] Interpreted by: TABBY ROBLEDO DO Electronically signed by: TABBY ROBLEDO DO 10/28/20 1754 Reviewed: Reviewed by Ga Departure Impression Primary Impression: COVID-19 Disposition: 01 HOME, SELF-CARE Condition: Stable Departure-Patient Inst. Decision time for Depature: 18:11 Referrals: RUFINA MURPHY MD (PCP/Family) Primary Care Physician Patient Instructions: COVID-19 Overview Add. Discharge Instructions: Plan: 1. Isolate at home for the next 10 days to prevent spreading infection. 2. Take Azithromycin and Medrol dose pack as directed, complete full course. 3. Use Albuterol inhaler 4 puffs with spacer every 4-6 hours as needed for shortness of breath. 4. Take a baby aspirin daily for the next 30 days. 5. Return to ER for any new, concerning, or worsening symptoms. All discharge instructions reviewed with patient and/or family. Voiced understanding. Scripts Albuterol Sulfate (VENTOLIN HFA) 1 Puff Puff 2 PUFF INH Q4H PRN for SHORTNESS OF BREATH, #1 INHALER 0 Refills 1 PUFF = 90 MCG Prov: HALLE EDGE LANGUAGE PATHOLOGIST 10/28/20 Methylprednisolone (Methylprednisolone Dose Pack) 4 Mg Tab.ds.pk 4 MG PO UD for 6 Days, #21 PKG 0 Refills PER DOSE PACK INSTRUCTIONS Prov: HALLE EDGE APRN 10/28/20 Azithromycin (Azithromycin) 250 Mg Tablet 250 MG PO DAILY for 4 Days, #4 TAB 0 Refills Prov: HALLE EDGE APRN 10/28/20 Copy Copies To 1: RUFINA MURPHY MD, STORMY D LANGUAGE PATHOLOGIST Oct 28, 2020 14:58
[2020-10-28] MEDS ORDERED: ACETAMINOPHEN 325 MG TABLET PO ONE (15:00)
[2020-10-28 15:05] LABS: BASOPHILS % (AUTO) 0 % (0-10); EOSINOPHILS % (AUTO) 0 % (0-10); HEMATOCRIT 46 % (40-54); HEMOGLOBIN 16.1 g/dL (13.3-17.7); LYMPHOCYTES # (AUTO) 2.1 10^3/uL (1.0-4.0); LYMPHOCYTES % (AUTO) 21 % (12-44); MEAN CORPUSCULAR HEMOGLOBIN 31 pg (25-34); MEAN CORPUSCULAR HGB CONC 35 g/dL (32-36); MEAN CORPUSCULAR VOLUME 89 fL (80-99); MEAN PLATELET VOLUME 10.7 fL (9.0-12.2); MONOCYTES # (AUTO) 0.5 10^3/uL (0.0-1.0); MONOCYTES % (AUTO) 5 % (0-12); NEUTROPHILS % (AUTO) 73 % (42-75); PLATELET COUNT 209 10^3/uL (130-400); WHITE BLOOD COUNT 9.6 10^3/uL (4.3-11.0)
[2020-10-28 15:17] LABS: ALBUMIN 3.8 GM/DL (3.2-4.5); CHLORIDE 108 MMOL/L (98-107); POTASSIUM 3.6 MMOL/L (3.6-5.0); SODIUM 141 MMOL/L (135-145)
[2020-10-28 15:18] LABS: CALCIUM 8.4 MG/DL (8.5-10.1)
[2020-10-28 15:20] LABS: GLUCOSE 93 MG/DL (70-105); TOTAL PROTEIN 6.9 GM/DL (6.4-8.2)
[2020-10-28 15:21] LABS: BILIRUBIN,TOTAL 0.5 MG/DL (0.1-1.0); CARBON DIOXIDE 20 MMOL/L (21-32)
[2020-10-28 15:23] LABS: ALKALINE PHOSPHATASE 76 U/L (40-136); CREATININE SERUM 1.06 MG/DL (0.60-1.30); GFR ESTIMATED > 60; MAGNESIUM 1.9 MG/DL (1.6-2.4)
[2020-10-28 15:24] LABS: BUN/CREATININE RATIO 11
[2020-10-28 15:26] LABS: ALANINE AMINOTRANSFERASE 35 U/L (0-55)
[2020-10-28 15:33] LABS: CREATINE KINASE MB 1.1 NG/ML (<6.6)
--- NOTE | 2020-10-28 15:56 | Diagnostic Imaging Report ---
HISTORY: Shortness of air, COVID positive. TECHNIQUE: Single frontal view of the chest. COMPARISON: 06/22/2007. FINDINGS: Lung volumes are normal. There is subtle increased opacity in the left midlung. There is no pleural effusion or pneumothorax. The cardiac silhouette is normal in size. Cervical spine fusion hardware is noted. IMPRESSION: 1. Subtle increased opacity in the left midlung, may represent atelectasis or infiltrate. Dictated by: Dictated on workstation # [id number]
[2020-10-28 16:35] LABS: FIBRIN DEGRADATION PRODUCTS 1.23 UG/ML (0.00-0.49); INR 0.9 (0.8-1.4)
[2020-10-28] MEDS ORDERED: NS 100 ML (IVPB) BAG IV ONE (17:30)
[2020-10-28] MEDS ORDERED: IOHEXOL 350 MG/ML 100 ML (OMNIPAQUE 350) VIAL IV ONE (17:30)
[2020-10-28] MEDS ORDERED: HOLD METFORMIN - RECEIVED CONTRAST 20 ML VIAL IV SCH (17:30)
--- NOTE | 2020-10-28 17:39 | Diagnostic Imaging Report ---
EXAMINATION: CT angiography of the chest. TECHNIQUE: Contrast enhanced thin section helical images were obtained through the chest with intravenous contrast timed for the optimal opacification of the arterial structures per CTA protocol. Post-processing, reconstructions and interpretation of angiographic images of the vessels was performed. 3D MIP reconstructions were performed and reviewed. All CT scans use one or more of the following dose optimizing techniques: automated exposure control, MA and/or KvP adjustment based on a patient size and exam type, or iterative reconstruction. HISTORY: Covid positive, shortness of breath and chest pain. COMPARISON: Chest radiograph 10/28/2020. FINDINGS: Vascular: No filling defects within the pulmonary arteries. Thoracic aorta is normal in caliber. Thyroid: The thyroid is normal. Mediastinum: Heart size is normal without significant pericardial effusion. No suspicious lymphadenopathy. Lungs and airways: There are patchy groundglass opacities throughout both lungs. No pleural effusion or pneumothorax. There is atelectasis within the lung bases. The airways are normal. Upper abdomen: The subphrenic structures are normal. Musculoskeletal: Degenerative changes of the spine without suspicious osseous lesion or compression fracture. Partially visualized cervical fusion hardware. IMPRESSION: 1. No findings of pulmonary embolus. 2. Patchy groundglass opacities throughout both lungs compatible with history of Covid 19 and pneumonia. Dictated by: Dictated on workstation # [id number]
[2020-10-28] MEDS ORDERED: AZIT250T12 PO (18:13)
[2020-10-28] MEDS ORDERED: METH4TAB10 PO (18:13)
[2020-10-28] MEDS ORDERED: AZITHROMYCIN 250 MG TAB (ZITHROMAX) PO ONE (18:15)
[2020-10-28] MEDS ORDERED: RT-ALBUINH INH (18:35)
[2020-10-28 19:06] VITALS: BP 117/85
== END 2020-10-28 19:06 | disposition home or self-care (01) ==
LOC: EDUNIT# 14:23 → ER 14:25
DX: U07.1 COVID-19 (principal); I10 Essential (primary) hypertension; M10.9 Gout, unspecified; G89.29 Other chronic pain; M54.9 Dorsalgia, unspecified; Z88.5 Allergy status to narcotic agent; Z77.22 Contact with and (suspected) exposure to environmental tobacco smoke (acute) (chronic); Z79.52 Long term (current) use of systemic steroids; Z79.891 Long term (current) use of opiate analgesic; Z79.899 Other long term (current) drug therapy
CPT/HCPCS: 36415; 71045; 71275; 80053; 82553; 82728; 83615; 83735; 83874; 84484; 85025; 85379; 85384; 85610; 85730; 86141; 87040; 87636; 93005; 93041

== ENCOUNTER 2020-10-31 09:25 | Inpatient (IN) | payer SELFPAY ==
[~2020-10-31] VITALS: Ht 185 cm; Wt 100.8 kg
[~2020-10-31 09:25] MED LIST changes: +AZIT250T12 PO; +METH4TAB10 PO; +RT-ALBUINH INH
[2020-10-31] MEDS: NITROGLYCERIN 0.4 MG SL TABS BTL 25'S SL PRN ×2 (09:44→09:49)
[2020-10-31] MEDS ORDERED: ASPIRIN 81 MG CHEW (CHILDREN'S ASA) ONE (09:44)
[2020-10-31] MEDS ORDERED: NITROGLYCERIN 0.4 MG SL TABS BTL 25'S SL ONE (09:45)
[2020-10-31 09:58] LABS: ABG BASE EXCESS -4.4 MMOL/L (-2.5-2.5); ABG OXYGEN SATURATION 95 % (94-100); ABG PCO2 25 MMHG (35-45); ABG PH 7.48 (7.37-7.43); ABG PO2 74 MMHG (79-93); ABG TCO2 18.9 MMOL/L (21.0-31.0)
[2020-10-31 09:59] VITALS: BP 138/82
[2020-10-31 10:00] LABS: ALLENS TEST YES-POS; INSPIRED O2 4L; PATIENT TEMP 38.7; VENTILATOR NO
[2020-10-31] MEDS ORDERED: ASPIRIN 81 MG CHEW (CHILDREN'S ASA) PO ONE (10:00)
[2020-10-31] MEDS ORDERED: KETOROLAC 30 MG/ML VIAL IVP ONE (10:00)
[2020-10-31] MEDS ORDERED: CEFEPIME INJECTION 1,000 MG in WATER (STERILE) FOR INJECTION 10 ML IV ONE (10:15)
[2020-10-31 10:16] LABS: BASOPHILS % (AUTO) 0 % (0-10); EOSINOPHILS % (AUTO) 0 % (0-10); HEMATOCRIT 45 % (40-54); HEMOGLOBIN 15.6 g/dL (13.3-17.7); LYMPHOCYTES # (AUTO) 1.1 10^3/uL (1.0-4.0); LYMPHOCYTES % (AUTO) 9 % (12-44); MEAN CORPUSCULAR HEMOGLOBIN 31 pg (25-34); MEAN CORPUSCULAR HGB CONC 35 g/dL (32-36); MEAN CORPUSCULAR VOLUME 89 fL (80-99); MEAN PLATELET VOLUME 10.3 fL (9.0-12.2); MONOCYTES # (AUTO) 0.4 10^3/uL (0.0-1.0); MONOCYTES % (AUTO) 3 % (0-12); NEUTROPHILS # (AUTO) 10.6 10^3/uL (1.8-7.8); NEUTROPHILS % (AUTO) 86 % (42-75); PLATELET COUNT 254 10^3/uL (130-400); WHITE BLOOD COUNT 12.2 10^3/uL (4.3-11.0)
[2020-10-31 10:18] LABS: SMEAR SCAN COMMENT YES
--- NOTE | 2020-10-31 10:22 | ED General ---
General Chief Complaint: Respiratory Problems Stated Complaint: COVID + SOB Nursing Triage Note: ARRIVED VIA WC TO ROOM 10 WITH COMPLAINTS OF INCREASED OF SOA AND CHEST PAIN. STATES HE WAS DX WITH COVID ON MON AND ALSO DX WITH PNEUMONIA. Nursing Sepsis Screen: Possible Severe Sepsis Risk Source of Information: Patient, Old Records Exam Limitations: No Limitations History of Present Illness Date Seen by Provider: Oct 31, 2020 Time Seen by Provider: 09:30 Initial Comments This 50-year-old gentleman presents to the emergency room with COVID-19, chest pain, and shortness of breath. He was diagnosed during an ER visit October 28. He returned home with outpatient treatment including a azithromycin, prednisolone, and an albuterol inhaler. This morning he became increasingly short of breath and had increasing chest pain which she describes as an intense heaviness rated as 10/10. He has history of hypertension and hyperlipidemia but denies any history of coronary artery disease. Oxygen saturations are 90 to 92% on room air and he is tachypneic with a respiratory rate around 30 breaths/min. He is afebrile at present. He took a hydrocodone this morning for pain. He also took aspirin 81 mg this morning. Patient states his chest pain was markedly exacerbated a couple of hours ago and he has significant worsening of pain with deep breaths and coughing. Allergies and Home Medications Allergies Coded Allergies: morphine (Verified Allergy, Mild, N/V, 10/24/17) Home Medications Albuterol Sulfate 1 Puff Puff, 2 PUFF INH Q4H PRN for SHORTNESS OF BREATH 1 PUFF = 90 MCG Prescribed by: HALLE EDGE on 10/28/201834 Last Action: Last Taken Edited Allopurinol 300 Mg Tablet, 300 MG PO DAILY, (Reported) Last Action: Last Taken Edited Azithromycin 250 Mg Tablet, 250 MG PO DAILY Prescribed by: HALLE EDGE on 10/28/201812 Last Action: Last Taken Edited Diazepam 5 Mg Tablet, 5 MG PO TID PRN for ANXIETY, (Reported) Last Action: Last Taken Edited Hydrocodone Bit/Acetaminophen 1 Each Tablet, 1 TAB PO Q4H PRN for PAIN-MODERATE, (Reported) Last Action: Last Taken Edited Methylprednisolone 4 Mg Tab.ds.pk, 4 MG PO UD PER DOSE PACK INSTRUCTIONS Prescribed by: HALLE EDGE on 10/28/201812 Last Action: Last Taken Edited Metoprolol Succinate 50 Mg Tab.er.24h, 50 MG PO HS, (Reported) Last Action: Last Taken Edited Patient Home Medication List Home Medication List Reviewed: Yes Review of Systems Review of Systems Constitutional: no symptoms reported EENTM: no symptoms reported Respiratory: see HPI Cardiovascular: see HPI Gastrointestinal: no symptoms reported Genitourinary: no symptoms reported Musculoskeletal: muscle pain Skin: no symptoms reported Psychiatric/Neurological: Other (Cognition dulled) Hematologic/Lymphatic: No Symptoms Reported Immunological/Allergic: no symptoms reported Past Vdohzeo-Giwisj-Zqloni Hx Past Med/Social Hx: Reviewed Nursing Past Med/Soc Hx Patient Social History Alcohol Use: Denies Use Smoking Status: Never a Smoker 2nd Hand Smoke Exposure: Yes Recent Infectious Disease Expo: No Recent Hopitalizations: Yes (DIVERTICULITIS SEPTEMBER 2016) Immunizations Up To Date Tetanus Booster (TDap): Unknown PED Vaccines UTD: Yes Date of Influenza Vaccine: Feb 20, 2017 Seasonal Allergies Seasonal Allergies: No Past Medical History Surgeries: Yes (APPY, DISC SURG, amputation of index finger rt hand) Amputation, Appendectomy, Orthopedic Respiratory: No Cardiac: Yes High Cholesterol, Hypertension Neurological: Yes Neuropathy Reproductive Disorders: No Sexually Transmitted Disease: No HIV/AIDS: No Genitourinary: No Gastrointestinal: Yes Abdominal Hernia Musculoskeletal: Yes (chronic neck pain) Chronic Back Pain, Gout Endocrine: No HEENT: No Cancer: No Psychosocial: No Integumentary: No Blood Disorders: No Family Medical History Patient reports no known family medical history. No Pertinent Family Hx Unknown family history as patient is adopted Physical Exam-Suspected Sepsis Physical Exam Vital Signs Vital Signs - First Documented 10/31/20 10/31/20 09:30 12:00 Temp 38.6 Pulse 99 Resp 20 B/P (MAP) 148/94 (112) Pulse Ox 93 O2 Delivery Nasal Cannula O2 Flow Rate 2.00 FiO2 95 Capillary Refill : Less Than 3 Seconds Blood Pressure Mean: 112 Height, Weight, BMI Height: 6'2.00" Weight: 238lbs. 0.0oz. 107.300385wu; 32.00 BMI Method:Estimated General Appearance: WD/WN, Moderate Distress HEENT: PERRL/EOMI, Normal ENT Inspection Neck: Normal Inspection; No JVD Respiratory: Lungs Clear; No Crackles, No Wheezing; Other (Tachypnea) Cardiovascular: Regular Rate, Rhythm, No Edema, No Murmur Gastrointestinal: Non Tender, Soft; No Distended Extremity: Normal Inspection, No Pedal Edema Neurologic/Psychiatric: Alert, Oriented x3, No Motor/Sensory Deficits, Normal Mood/Affect, licensed physical therapy assistant II-XII Norm as Tested, Other (Cognition dulled) Skin: normal color, warm/dry Focused Exam Lactate Level 10/31/20 09:40: Lactic Acid Level 2.61*H 10/31/20 12:00: Lactic Acid Level 1.28 Lactic Acid Level Progress/Results/Core Measures Suspected Sepsis Recent Fever Within 48 Hours: Yes Infection Criteria Present: Suspected New Infection New/Unexplained Altered Menta: No Sepsis Screen: Possible Severe Sepsis Risk SIRS Temperature: Pulse: 94 Respiratory Rate: 30 Laboratory Tests 10/31/20 09:40: White Blood Count 12.2H Blood Pressure 138 /82 Mean: 112 10/31/20 09:40: Lactic Acid Level 2.61*H 10/31/20 12:00: Lactic Acid Level 1.28 Laboratory Tests 10/31/20 09:40: Creatinine 1.14, INR Comment 0.9, Platelet Count 254, Total Bilirubin 0.9 Results/Orders Lab Results Laboratory Tests Test 10/31/20 09:40 10/31/20 09:50 10/31/20 12:00 10/31/20 16:05 Range/Units White Blood Count 12.2 H 4.3-11.0 10^3/uL Red Blood Count 5.01 4.30-5.52 10^6/uL Hemoglobin 15.6 13.3-17.7 g/dL Hematocrit 45 40-54 % Mean Corpuscular Volume 89 80-99 fL Mean Corpuscular Hemoglobin 31 25-34 pg Mean Corpuscular Hemoglobin Concent 35 32-36 g/dL Red Cell Distribution Width 12.6 10.0-14.5 % Platelet Count 254 130-400 10^3/uL Mean Platelet Volume 10.3 9.0-12.2 fL Immature Granulocyte % (Auto) 1 % Neutrophils (%) (Auto) 86 H 42-75 % Lymphocytes (%) (Auto) 9 L 12-44 % Monocytes (%) (Auto) 3 0-12 % Eosinophils (%) (Auto) 0 0-10 % Basophils (%) (Auto) 0 0-10 % Neutrophils # (Auto) 10.6 H 1.8-7.8 10^3/uL Lymphocytes # (Auto) 1.1 1.0-4.0 10^3/uL Monocytes # (Auto) 0.4 0.0-1.0 10^3/uL Eosinophils # (Auto) 0.0 0.0-0.3 10^3/uL Basophils # (Auto) 0.0 0.0-0.1 10^3/uL Immature Granulocyte # (Auto) 0.1 0.0-0.1 10^3/uL Prothrombin Time 12.9 12.2-14.7 SEC INR Comment 0.9 0.8-1.4 Activated Partial Thromboplast Time 27 24-35 SEC D-Dimer 1.45 H 0.00-0.49 UG/ML Sodium Level 139 135-145 MMOL/L Potassium Level 3.7 3.6-5.0 MMOL/L Chloride Level 105 98-107 MMOL/L Carbon Dioxide Level 19 L 21-32 MMOL/L Anion Gap 15 H 5-14 MMOL/L Blood Urea Nitrogen 21 H 7-18 MG/DL Creatinine 1.14 0.60-1.30 MG/DL Estimat Glomerular Filtration Rate > 60 BUN/Creatinine Ratio 18 Glucose Level 105 70-105 MG/DL Lactic Acid Level 2.61 *H 1.28 0.50-2.00 MMOL/L Calcium Level 8.9 8.5-10.1 MG/DL Corrected Calcium 9.3 8.5-10.1 MG/DL Magnesium Level 2.0 1.6-2.4 MG/DL Total Bilirubin 0.9 0.1-1.0 MG/DL Aspartate Amino Transf (AST/SGOT) 55 H 5-34 U/L Alanine Aminotransferase (ALT/SGPT) 57 H 0-55 U/L Alkaline Phosphatase 73 40-136 U/L Lactate Dehydrogenase 403 H 125-220 U/L Myoglobin 329.8 H 10.0-92.0 NG/ML Troponin I < 0.028 < 0.028 <0.028 NG/ML C-Reactive Protein High Sensitivity 11.15 H 0.00-0.50 MG/DL Total Protein 7.1 6.4-8.2 GM/DL Albumin 3.5 3.2-4.5 GM/DL Procalcitonin 0.54 H <0.10 NG/ML Smear Scan YES Blood Gas Puncture Site L RAD Blood Gas Patient Temperature 38.7 Arterial Blood pH 7.48 H 7.37-7.43 Arterial Blood Partial Pressure CO2 25 L 35-45 MMHG Arterial Blood Partial Pressure O2 74 L 79-93 MMHG Arterial Blood HCO3 18 L 23-27 MMOL/L Arterial Blood Total CO2 18.9 L 21.0-31.0 MMOL/L Arterial Blood Oxygen Saturation 95 94-100 % Arterial Blood Base Excess -4.4 L -2.5-2.5 MMOL/L Allan Test YES-POS Blood Gas Ventilator Setting NO Blood Gas Inspired Oxygen 4L My Orders Orders - CHRISTIAN LAM MD Aspirin Chewable Tablet (Baby Aspirin Ch (10/31/20 09:44) Nitroglycerin 0.4 Mg Btl 25's (Nitrostat (10/31/20 09:45) Arterial Blood Gas (10/31/20 09:50) Cbc With Automated Diff (10/31/20:56) Comprehensive Metabolic Panel (10/31/20:56) Blood Culture (10/31/20:56) Sputum Culture (10/31/20 09:56) Urinalysis (10/31/20:56) Urine Culture (10/31/20:56) Protime With Inr (10/31/20:56) Partial Thromboplastin Time (10/31/20 09:56) Chest 1 View, Ap/Pa Only (10/31/20 09:56) Ed Iv/Invasive Line Start (10/31/20 09:56) Ed Iv/Invasive Line Start (10/31/20 09:56) Vital Signs Adult Sepsis Patie Q15M (10/31/20 09:56) O2 (10/31/20 09:56) Remove Rings In Anticipation O (10/31/20 09:56) Lactic Acid Analyzer (10/31/20 09:56) Ketorolac Injection (Toradol Injection) (10/31/20 10:00) Magnesium (10/31/20 09:56) Ekg Tracing (10/31/20 09:56) Myoglobin Serum (10/31/20 09:56) Monitor-Rhythm Ecg Trace Only (10/31/20 09:56) Lipid Panel (11/01/20 06:00) Fibrin Degradation Products (10/31/20 09:56) Troponin I (10/31/20 09:56) Nitroglycerin 0.4 Mg Btl 25's (Nitrostat (10/31/20 10:00) Aspirin Chewable Tablet (Baby Aspirin Ch (10/31/20 10:00) Procalcitonin (Pct) (10/31/20 09:56) Hs C Reactive Protein (10/31/20 09:56) LDH (10/31/20 09:56) Arterial Blood Draw (10/31/20 ) Dexamethasone Injection (Decadron Inje (10/31/20 10:15) Cefepime Injection (Maxipime Injection) (10/31/20 10:15) Ct Angio Chest W (10/31/20 10:59) Iohexol Injection (Omnipaque 350 Mg/Ml 1 (10/31/20 11:45) Received Contrast (Hold Metformin- Contr (10/31/20 11:45) Sodium Chloride Flush (Catheter Flush Sy (10/31/20 11:45) Ns (Ivpb) (Sodium Chloride 0.9% Ivpb Bag (10/31/20 11:45) Medications Given in ED Current Medications Medications Dose Ordered Sig/Terell Route Start Time Stop Time Status Last Admin Dose Admin Aspirin 243 mg ONCE ONCE PO 10/31/20 10:00 10/31/20 10:04 DC 10/31/20 09:44 243 MG Cefepime HCl 1000 mg/Sterile Water 10 ml @ 200 mls/hr ONCE ONCE IV 10/31/20 10:15 10/31/20 10:17 DC 10/31/20 10:31 200 MLS/HR Dexamethasone Sodium Phosphate 6 mg ONCE ONCE IV 10/31/20 10:15 10/31/20 10:16 DC 10/31/20 10:28 6 MG Ketorolac Tromethamine 15 mg ONCE ONCE IVP 10/31/20 10:00 10/31/20 10:04 DC 10/31/20 10:27 15 MG Nitroglycerin 0.4 mg UD PRN SL 10/31/20 10:00 10/31/20 12:02 DC 10/31/20 09:49 0.4 MG Vital Signs/I&O 6/26/21 6/26/21 6/26/21 6/26/21 09:30 09:30 09:59 11:40 Temp 38.6 Pulse 99 94 82 Resp 20 30 16 B/P (MAP) 148/94 (112) 140/89 Pulse Ox 93 99 96 97 O2 Delivery Nasal Cannula Room Air NIV Bilevel O2 Flow Rate 2.00 50.00 10/31/20 10/31/20 10/31/20 10/31/20 12:00 12:00 12:51 12:54 Temp 37.6 Pulse 76 76 Resp 11 B/P (MAP) 135/90 (105) Pulse Ox 94 O2 Delivery Nasal Cannula Nasal Cannula Nasal Cannula O2 Flow Rate 4.00 4.00 4.00 FiO2 95 10/31/20 10/31/20 10/31/20 10/31/20 13:00 13:34 14:00 15:00 Temp 37.6 Pulse 77 99 67 73 Resp 26 B/P (MAP) 135/88 (104) 131/90 (104) 131/90 (104) Pulse Ox 95 93 96 95 O2 Delivery Nasal Cannula Nasal Cannula Nasal Cannula O2 Flow Rate 4.00 4.00 4.00 FiO2 28 10/31/20 10/31/20 10/31/20 10/31/20 15:39 15:50 15:52 16:00 Temp 36.6 Pulse 74 Resp 20 B/P (MAP) 128/84 (99) Pulse Ox 91 94 O2 Delivery Nasal Cannula Nasal Cannula Nasal Cannula O2 Flow Rate 4.00 4.00 4.00 FiO2 95 10/31/20 10/31/20 17:00 18:00 Pulse 80 74 Resp 16 12 B/P (MAP) 136/83 (100) 139/89 (106) Pulse Ox 94 95 O2 Delivery Nasal Cannula Nasal Cannula O2 Flow Rate 4.00 4.00 Capillary Refill : Less Than 3 Seconds Blood Pressure Mean: 112 Progress Note #1: Time: 10:21 Progress Note Patient was seen and examined promptly upon arrival. Chest pain and added septic work-ups are being pursued. Patient was given 243 mg of aspirin and 2 doses of nitroglycerin. Pain improved to 6/10 with nitroglycerin. Toradol is also being administered for the pleuritic chest pain. Dexamethasone will be given along with a dose of cefepime. Oxygen saturation only improved to 93 or 94% with 5 L by nasal cannula. He was placed on BiPAP at 50% FiO2 and pressures of 5/10. This improved his saturations to the upper 90s. Progress Note #2: Time: 11:11 Progress Note Patient is stable on BiPAP. D-dimer was elevated. CT angiogram will be obtained prior to transitioning to the ICU. Cefepime is being given for initial antibiotic therapy. Patient appears to be meeting sepsis criteria due to viral Covid syndrome rather than bacterial infection. He has hypertensive and does n ot appear volume depleted. We will therefore not administer the high-volume fluid resuscitation. ECG Initial ECG Impression Date: Oct 31, 2020 Initial ECG Impression Time: 09:38 Initial ECG Rate: 86 Comment Sinus rhythm with no ST elevation or depression. No abnormal intervals or axis deviation. Incomplete analysis due to missing lead V4. Diagnostic Imaging Diagonstic Imaging: Xray Plain Films/CT/US/NM/MRI: chest Comments Chest x-ray viewed by me and report reviewed. Compared with prior. See report below: NAME: [facility] REC#: [id number] PT STATUS: REG ER : 1970 PHYSICIAN: CHRISTIAN LAM MD ADMIT DATE: 10/31/20/ER Signed Date of Exam:10/31/20 CHEST 1 VIEW, AP/PA ONLY EXAMINATION: Chest 1 view HISTORY: Sepsis COMPARISON: 10/28/2020 FINDINGS: Heart size and pulmonary vasculature are stable. There are increasing patchy interstitial and airspace opacities throughout both lungs. No pleural effusion or pneumothorax. The osseous structures are intact. Partially visualized cervical fusion hardware. IMPRESSION: 1. Increasing patchy interstitial and airspace opacities in both lungs compatible with worsening pneumonia. Dictated by: Dictated on workstation # [id number] Dict: 10/31/20 1027 Trans: 10/31/20 1045 [facility] [id number] Interpreted by: TABBY ROBLEDO DO Electronically signed by: TABBY ROBLEDO DO 10/31/20 1045 Departure Communication (Admissions) Time/Spoke to Admitting Phy: 10:30 Dr. Denise Time/Spoke to Consulting Phy: 11:05 Dr. Strong Impression Primary Impression: COVID-19 Additional Impressions: Pneumonia Qualified Codes: J18.9 - Pneumonia, unspecified organism Respiratory failure Qualified Codes: J96.01 - Acute respiratory failure with hypoxia Elevated d-dimer Chest pain Qualified Codes: R07.9 - Chest pain, unspecified Disposition: 09 ADMITTED INPATIENT Condition: Improved Admissions Decision to Admit Reason: Admit from ER (General) Decision to Admit/Date: Oct 31, 2020 Time/Decision to Admit Time: 09:35 Departure-Patient Inst. Referrals: RUFINA MURPHY MD (PCP/Family) Primary Care Physician CHRISTIAN LAM MD Oct 31, 2020 10:22
[2020-10-31 10:24] LABS: ALBUMIN 3.5 GM/DL (3.2-4.5); CHLORIDE 105 MMOL/L (98-107); POTASSIUM 3.7 MMOL/L (3.6-5.0); SODIUM 139 MMOL/L (135-145)
[2020-10-31 10:25] LABS: CALCIUM 8.9 MG/DL (8.5-10.1); FIBRIN DEGRADATION PRODUCTS 1.45 UG/ML (0.00-0.49); INR 0.9 (0.8-1.4); PROTHROMBIN TIME PATIENT 12.9 SEC (12.2-14.7)
[2020-10-31 10:26] LABS: GLUCOSE 105 MG/DL (70-105); TOTAL PROTEIN 7.1 GM/DL (6.4-8.2)
[2020-10-31 10:27] LABS: CARBON DIOXIDE 19 MMOL/L (21-32)
[2020-10-31 10:28] LABS: BILIRUBIN,TOTAL 0.9 MG/DL (0.1-1.0)
--- NOTE | 2020-10-31 10:29 | Diagnostic Imaging Report ---
EXAMINATION: Chest 1 view HISTORY: Sepsis COMPARISON: 10/28/2020 FINDINGS: Heart size and pulmonary vasculature are stable. There are increasing patchy interstitial and airspace opacities throughout both lungs. No pleural effusion or pneumothorax. The osseous structures are intact. Partially visualized cervical fusion hardware. IMPRESSION: 1. Increasing patchy interstitial and airspace opacities in both lungs compatible with worsening pneumonia. Dictated by: Dictated on workstation # [id number]
[2020-10-31 10:30] LABS: ALKALINE PHOSPHATASE 73 U/L (40-136); CREATININE SERUM 1.14 MG/DL (0.60-1.30); GFR ESTIMATED > 60
[2020-10-31 10:31] LABS: BUN/CREATININE RATIO 18
[2020-10-31 10:33] LABS: ALANINE AMINOTRANSFERASE 57 U/L (0-55)
[2020-10-31] MEDS ORDERED: CATHETER FLUSH 10 ML SYR IV PRN (11:45)
[2020-10-31] MEDS ORDERED: HOLD METFORMIN - RECEIVED CONTRAST 20 ML VIAL IV SCH (11:45)
[2020-10-31] MEDS ORDERED: IOHEXOL 350 MG/ML 100 ML (OMNIPAQUE 350) VIAL IV ONE (11:45)
[2020-10-31] MEDS ORDERED: NS 100 ML (IVPB) BAG IV ONE (11:45)
--- NOTE | 2020-10-31 12:01 | Tele-ICU Consult ---
Progress Note 50 y/o male who was inthe ED 48 hours ago with CP, HARPER and chills. was COVID +. He tested positive also He had a CTA of his chest which ws neg for PE Presents now with SOB and CP again. CTA of chest performed again, NO PE Symptoms of hypoxemia nd CP and SOB likley due to COvid PNA WBC: 12.2 hgb: 15.6 Plts 254 Na 139 K: 3.7 Cl: 105 Bicarb 19 BUN 21 Creat: 1.1 Lactate: 2.6 imp: covid PNA HFNC oxygen Decadron 6mg Started on antibiotics for possible bacterial PNA Focused Exam Lactate Level 10/31/20 09:40: Lactic Acid Level 2.61*H Height, Weight, BMI Height: 6'2.00" Weight: 238lbs. 0.0oz. [id number]; 32.00 BMI Method:Estimated Lactic Acid Level Laboratory Tests Test 10/31/20 09:40 Lactic Acid Level 2.61 MMOL/L (0.50-2.00) *H ROSALINDA CRUZ MD Oct 31, 2020 12:01
--- NOTE | 2020-10-31 12:09 | Diagnostic Imaging Report ---
EXAMINATION: CT angiography of the chest. TECHNIQUE: Contrast enhanced thin section helical images were obtained through the chest with intravenous contrast timed for the optimal opacification of the arterial structures per CTA protocol. Post-processing, reconstructions and interpretation of angiographic images of the vessels was performed. 3D MIP reconstructions were performed and reviewed. All CT scans use one or more of the following dose optimizing techniques: automated exposure control, MA and/or KvP adjustment based on a patient size and exam type, or iterative reconstruction. HISTORY: Covid positive, increased shortness of breath and elevated D-dimer. COMPARISON: CTA chest 10/28/2020 FINDINGS: Vascular: No filling defects within the pulmonary arteries. Thoracic aorta is normal in caliber. Thyroid: The thyroid is normal. Mediastinum: Heart size is normal without significant pericardial effusion. No suspicious lymphadenopathy. Lungs and airways: There are patchy groundglass opacities throughout both lungs. There is more patchy consolidation within the dependent lungs which has progressed from 10/28/2014. No pleural effusion or pneumothorax. The airways are normal. Upper abdomen: The subphrenic structures are normal. Musculoskeletal: No suspicious osseous lesion or compression fracture. IMPRESSION: 1. No findings of pulmonary embolus. 2. Progressive appearance of the patchy multifocal opacities throughout both lungs compatible with worsening Covid 19 pneumonia. Dictated by: Dictated on workstation # [id number]
[2020-10-31] MEDS ORDERED: NITROGLYCERIN 0.4 MG SL TABS BTL 25'S SL PRN (12:15)
[2020-10-31] MEDS ORDERED: ACETAMINOPHEN 650 MG SUPP (TYLENOL) PR PRN (12:15)
[2020-10-31] MEDS ORDERED: RT-ALBUTEROL INHALER HFA (VENTOLIN HFA) 18 GM IH PRN ×2 (12:15→17:00)
[2020-10-31] MEDS ORDERED: ONDANSETRON 4 MG (ZOFRAN) ORAL DISSOLVE TAB PO PRN (12:15)
[2020-10-31] MEDS ORDERED: ENOXAPARIN 40 MG/0.4 ML (LOVENOX) SYR SQ SCH (12:45)
[2020-10-31] MEDS: LACTATED RINGERS 1,000 ML IV SCH (13:10)
[2020-10-31] MEDS: ENOXAPARIN 40 MG/0.4 ML (LOVENOX) SYR SC SCH (13:10)
[2020-10-31] MEDS: AZITHROMYCIN 250 MG/NS 250 ML IVPB IV SCH ×2 (13:10)
[2020-10-31 13:34] VITALS: BP 148/94
[2020-10-31] MEDS: guaiFENesin SYRUP 100 MG/5 ML 10 ML (ROBITUSSIN SF) PO PRN ×2 (15:47→22:15)
[2020-10-31] MEDS: ACETAMINOPHEN 325 MG TABLET PO PRN (15:49)
[2020-10-31] MEDS: RT-ALBUTEROL INHALER HFA (VENTOLIN HFA) 18 GM IH SCH ×2 (15:52→20:30)
--- NOTE | 2020-10-31 17:51 | History & Physical-Hospitalist ---
History of Present Illness HPI/Chief Complaint Jonathan Chavez is a 50 year old male with PMH HTN, HLD, obesity, who presented with chest pain. He described it as a heaviness worsened by cough and deep breathing. He has been short of breath and coughing .He was diagnosed with COVID-19 four days ago. He began having symptoms a few days before that. His was diagnosed before him. He did not receive the COVID vaccine. He has been eating and drinking. He has not been able to taste or smell. He has been having fevers. Source: patient Exam Limitations: no limitations Date Seen 10/31/20 Time Seen by a Provider: 12:30 Attending Physician Zabrina Powell MD PCP Brown Rubio MD Referring Physician Date of Admission Oct 31, 2020 at 11:07 Home Medications & Allergies Home Medications Reviewed patient Home Medication Reconciliation performed by pharmacy medication reconciliations weatherization technician and/or nursing. Patients Allergies have been reviewed. Allergies Allergies Coded Allergies morphine (Verified Allergy, Mild, N/V, 10/24/17) Past Qlivoce-Rhuyjz-Hyeluy Hx Patient Social History Tobacco Use?: No Smoking Status: Never a Smoker Smokeless Tobacco Frequency: Never a User Use of E-Cig and/or Vaping dev: No Substance use?: No Alcohol Use?: No Pt feels they are or have been: No Immunizations Up To Date Date of Influenza Vaccine: Feb 20, 2017 First/Initial COVID19 Vaccinat: HAS NOT GOTTEN COVID VACCINE Tetanus Booster (TDap): Less Than 5 Years Hepatitis A: No Hepatitis B: No PED Vaccines UTD: Yes Seasonal Allergies Seasonal Allergies: No Current Status Advance Directives: No Communicates: Verbally Primary Language: Ethiopian Preferred Spoken Language: Ethiopian Is interpretation needed?: No Additional sensory deficits: N/A Implanted or Applied Medical D: Orthopedic hardware Past Medical History Surgeries: Amputation, Appendectomy, Orthopedic High Cholesterol, Hypertension Neuropathy Sexually Transmitted Disease: No HIV/AIDS: No Abdominal Hernia Chronic Back Pain, Gout Blood Disorders: No Family Medical History Reviewed Nursing Family Hx Patient reports no known family medical history. No Pertinent Family Hx Unknown family history as patient is adopted Review of Systems Constitutional: fever, malaise EENTM: no symptoms reported Respiratory: cough, short of breath Cardiovascular: chest pain Gastrointestinal: diarrhea Genitourinary: no symptoms reported Musculoskeletal: no symptoms reported Skin: no symptoms reported Psychiatric/Neurological: No Symptoms Reported Physical Exam Physical Exam Vital Signs Vital Signs - First Documented 10/31/20 10/31/20 09:30 12:00 Temp 38.6 Pulse 99 Resp 20 B/P (MAP) 148/94 (112) Pulse Ox 93 O2 Delivery Nasal Cannula O2 Flow Rate 2.00 FiO2 95 Capillary Refill : Less Than 3 Seconds Height, Weight, BMI Height: 6'2.00" Weight: 238lbs. 0.0oz. [id number]; 31.52 BMI Method:Estimated General Appearance: No Apparent Distress, Obese HEENT: PERRL/EOMI, Pharynx Normal Neck: Normal Inspection, Supple Respiratory: Lungs Clear, Normal Breath Sounds, No Respiratory Distress Cardiovascular: Regular Rate, Rhythm, No Edema, No Murmur Gastrointestinal: Normal Bowel Sounds, Non Tender, Soft Extremity: Normal Inspection, Non Tender, No Pedal Edema Neurologic/Psychiatric: Alert, Oriented x3, No Motor/Sensory Deficits, Normal Mood/Affect Skin: Normal Color, Warm/Dry Results Results/Procedures Labs Laboratory Tests 10/31/20 09:40 Patient resulted labs reviewed. Imaging: Reviewed Imaging Films, Reviewed Imaging Report Assessment/Plan Admission Diagnosis Acute respiratory failure due to COVID-19 Admission Status: Inpatient Order (span 2 midnights) Reason for Inpatient Admission: Respiratory failure requiring oxygen Assessment and Plan Acute respiratory failure due to COVID-19 Bacterial pneumonia Elevated procalcitonin Lactic acidosis Elevated d-dimer Elevated LFTs COVID+ 10/28, symptoms started about 8 days ago Chest xray with worsening infiltrates D-dimer elevated CT without PE Procalcitonin elevated Troponin normal Started on Decadron Requiring BiPAP Not starting Remdesivir due to BiPAP requirement on arrival Convalescent plasma ordered Cefepime and Azithromycin TeleICU consulted Cardiology consulted HTN HLD Continue home meds Obesity Clinically significant, no acute management needs DVT prophylaxis: Lovenox Critical Care Critically Ill Patient Diagnosis/Problems Diagnosis/Problems (1) Acute respiratory failure due to COVID-19 Status: Acute (2) Bacterial pneumonia Status: Acute (3) Lactic acidosis Status: Acute (4) Elevated LFTs Status: Acute (5) Elevated procalcitonin Status: Acute (6) Obesity Status: Chronic (7) HTN (hypertension) Status: Chronic (8) HLD (hyperlipidemia) Status: Chronic ZABRINA POWELL MD Oct 31, 2020 17:51
[2020-10-31] MEDS: CEFEPIME 1,000 MG/SWFI 10 ML IV PUSH IV SCH ×4 (18:43→23:43)
[2020-11-01 00:18] VITALS: BP 153/88
[2020-11-01] MEDS: ONDANSETRON 4 MG/2 ML (SDV) Z0FRAN IV PRN ×2 (00:57→19:36)
[2020-11-01] MEDS ORDERED: DexMEDEtomidine 250 ML DRIP 250 ML IV ONE (01:19)
[2020-11-01] MEDS: LACTATED RINGERS 1,000 ML IV SCH (01:21)
[2020-11-01] MEDS: DexMEDEtomidine 250 ML DRIP 250 ML IV SCH (01:21)
[2020-11-01] MEDS: guaiFENesin SYRUP 100 MG/5 ML 10 ML (ROBITUSSIN SF) PO PRN ×3 (01:39→15:53)
[2020-11-01] MEDS: RT-ALBUTEROL INHALER HFA (VENTOLIN HFA) 18 GM IH SCH ×4 (02:14→21:59)
[2020-11-01 03:23] LABS: BASOPHILS % (AUTO) 0 % (0-10); EOSINOPHILS % (AUTO) 0 % (0-10); HEMATOCRIT 44 % (40-54); HEMOGLOBIN 14.7 g/dL (13.3-17.7); LYMPHOCYTES # (AUTO) 0.5 10^3/uL (1.0-4.0); LYMPHOCYTES % (AUTO) 4 % (12-44); MEAN CORPUSCULAR HEMOGLOBIN 31 pg (25-34); MEAN CORPUSCULAR HGB CONC 34 g/dL (32-36); MEAN CORPUSCULAR VOLUME 91 fL (80-99); MEAN PLATELET VOLUME 10.3 fL (9.0-12.2); MONOCYTES # (AUTO) 0.4 10^3/uL (0.0-1.0); MONOCYTES % (AUTO) 4 % (0-12); NEUTROPHILS # (AUTO) 10.9 10^3/uL (1.8-7.8); NEUTROPHILS % (AUTO) 91 % (42-75); PLATELET COUNT 242 10^3/uL (130-400); WHITE BLOOD COUNT 11.9 10^3/uL (4.3-11.0)
[2020-11-01 03:46] LABS: CHLORIDE 107 MMOL/L (98-107)
[2020-11-01 03:47] LABS: ALBUMIN 3.3 GM/DL (3.2-4.5); POTASSIUM 3.9 MMOL/L (3.6-5.0); SODIUM 140 MMOL/L (135-145)
[2020-11-01 03:48] LABS: CALCIUM 8.9 MG/DL (8.5-10.1)
[2020-11-01 03:49] LABS: TOTAL PROTEIN 6.7 GM/DL (6.4-8.2); TRIGLYCERIDES 106 MG/DL (<150); VLDL CHOLESTEROL 21 MG/DL (5-40)
[2020-11-01 03:50] LABS: CARBON DIOXIDE 21 MMOL/L (21-32); GLUCOSE 100 MG/DL (70-105)
[2020-11-01 03:51] LABS: BILIRUBIN,TOTAL 0.8 MG/DL (0.1-1.0)
[2020-11-01 03:53] LABS: ALKALINE PHOSPHATASE 87 U/L (40-136); CREATININE SERUM 0.96 MG/DL (0.60-1.30); GFR ESTIMATED > 60
[2020-11-01 03:54] LABS: BUN/CREATININE RATIO 22; CHOLESTEROL 159 MG/DL (< 200)
[2020-11-01 03:55] LABS: HDL CHOLESTEROL 42 MG/DL (40-60)
[2020-11-01 03:56] LABS: ALANINE AMINOTRANSFERASE 58 U/L (0-55)
[2020-11-01] MEDS: ACETAMINOPHEN 325 MG TABLET PO PRN ×2 (04:24→15:55)
[2020-11-01 04:35] LABS: PHOSPHORUS 2.2 MG/DL (2.3-4.7)
[2020-11-01 04:37] LABS: MAGNESIUM 2.1 MG/DL (1.6-2.4)
[2020-11-01] MEDS: CEFEPIME 1,000 MG/SWFI 10 ML IV PUSH IV SCH ×8 (05:34→23:35)
[2020-11-01] MEDS: ASPIRIN E.C. 81 MG (ECOTRIN) TAB PO SCH (08:21)
[2020-11-01] MEDS: AZITHROMYCIN 250 MG/NS 250 ML IVPB IV SCH ×2 (08:24)
[2020-11-01] MEDS: DEXTROMETHORPHAN SUSP 30 MG/5 ML 30 ML (DELSYM) PO SCH ×2 (08:24→19:31)
--- NOTE | 2020-11-01 09:21 | Tele-ICU Progress Note ---
Subjective Date Seen by a Provider: Nov 01, 2020 Time Seen by a Provider: 09:15 Subjective/Events-last exam Rounded virtually with GAUTAM Desai. Patient stable overnight. VSS. On vapotherm 35L/50%.Today's plan is to monitor in ICU, continue present management, high flow FiO2 on vapotherm. Review of Systems See freetext note Sepsis Event Evaluation Sepsis Stage: Ruled Out Possible Source: Other Height, Weight, BMI Height: 6'2.00" Weight: 238lbs. 0.0oz. [id number]; 31.52 BMI Method:Estimated Bedside Monitoring CVP Measures: 8-12 ScvO2 measures: Greater than 70% Bedside Ultrasound Performed: No Passive Leg Raise/Fluid Bolus: Fluid Responsive Focused Exam Sepsis Stage: Ruled Out Possible Source: Other Lactate Level 10/31/20 09:40: Lactic Acid Level 2.61*H 10/31/20 12:00: Lactic Acid Level 1.28 Cardiovascular: No Edema Peripheral Pulses: 2+ Left Dors-Pedis (L), 2+ Radial Pulses (R) Skin: normal color Lactic Acid Level See freetext note Within 3hrs of presentation: Admin fluids Exam Exam Patient acknowledged, consented, and participated in this virtual visit which was conducted using real time audio/video Vital Signs Date Time Temp Pulse Resp B/P (MAP) Pulse Ox O2 Delivery O2 Flow Rate FiO2 11/01/20 08:39 95 Vapotherm 35.00 50 11/01/20 08:00 68 35 120/78 (92) 95 Vapotherm 35.00 50.00 11/01/20 07:51 97 Vapotherm 35.00 50 11/01/20 07:37 37.1 11/01/20 07:05 Vapotherm 35.00 50.00 11/01/20 07:00 70 23 118/74 (89) 97 Vapotherm 30.00 40.00 11/01/20 07:00 72 11/01/20 06:00 78 119/76 (90) 94 Vapotherm 30.00 40.00 11/01/20 05:09 93 Vapotherm 30.00 45 11/01/20 05:00 79 19 119/77 (91) 96 Vapotherm 30.00 40.00 11/01/20 04:16 High Flow N/C 10.00 91 11/01/20 04:00 39.0 Vapotherm 30.00 40.00 11/01/20 04:00 90 148/71 (96) 92 High Flow N/C 10.00 11/01/20 03:00 94 17 130/81 (97) 92 High Flow N/C 10.00 11/01/20 02:14 91 Nasal Cannula 12.00 11/01/20 02:00 104 9 139/81 (100) 91 High Flow N/C 10.00 11/01/20 01:35 High Flow N/C 10.00 11/01/20 01:21 98 171/97 11/01/20 01:00 110 171/97 (121) 88 Nasal Cannula 3.00 11/01/20 01:00 106 11/01/20 00:37 93 34 94 30.00 11/01/20 00:18 93 33 94 30.00 11/01/20 00:00 97 26 151/90 (110) 86 Nasal Cannula 3.00 10/31/20 23:42 37.4 10/31/20 23:30 Nasal Cannula 3.00 96 10/31/20 23:00 75 151/91 (111) 93 Nasal Cannula 3.00 10/31/20 22:00 77 142/88 (106) 93 Nasal Cannula 3.00 10/31/20 21:00 64 29 139/84 (102) 96 Nasal Cannula 3.00 10/31/20 20:30 95 Nasal Cannula 3.00 10/31/20 20:29 Nasal Cannula 3.00 96 10/31/20 20:00 63 129/87 (101) 96 Nasal Cannula 3.00 10/31/20 19:27 56 22 134/85 (101) 95 Nasal Cannula 3.00 10/31/20 19:19 36.3 10/31/20 19:00 66 10/31/20 19:00 65 133/90 (104) 94 Nasal Cannula 4.00 10/31/20 18:00 74 12 139/89 (106) 95 Nasal Cannula 4.00 10/31/20 17:00 80 16 136/83 (100) 94 Nasal Cannula 4.00 10/31/20 16:00 74 20 128/84 (99) 94 Nasal Cannula 4.00 10/31/20 15:52 91 Nasal Cannula 4.00 10/31/20 15:50 Nasal Cannula 4.00 95 10/31/20 15:39 36.6 10/31/20 15:00 73 26 131/90 (104) 95 Nasal Cannula 4.00 10/31/20 14:00 67 26 131/90 (104) 96 Nasal Cannula 4.00 10/31/20 13:34 37.6 99 93 28 10/31/20 13:00 77 25 135/88 (104) 95 Nasal Cannula 4.00 10/31/20 12:54 76 10/31/20 12:51 37.6 Nasal Cannula 4.00 10/31/20 12:00 Nasal Cannula 4.00 95 10/31/20 12:00 76 11 135/90 (105) 94 Nasal Cannula 4.00 10/31/20 11:40 82 16 140/89 97 NIV Bilevel 10/31/20 09:59 94 30 96 50.00 10/31/20 09:30 38.6 99 20 148/94 (112) 99 Room Air 10/31/20 09:30 93 Nasal Cannula 2.00 I & O 11/01/20 06:59 Intake Total 1140 ml Output Total 1975 ml Balance -835 ml Height & Weight Height: 6'2.00" Weight: 238lbs. 0.0oz. 107.924781up; 31.52 BMI Method:Estimated General Appearance: WD/WN, Moderate Distress HEENT: PERRL/EOMI, Normal ENT Inspection Neck: Normal Inspection; No JVD Respiratory: Lungs Clear; No Crackles, No Wheezing; Other (Tachypnea) Cardiovascular: Regular Rate, Rhythm, No Edema, No Murmur Capillary Refill: Less Than 3 Seconds Peripheral Pulses: 2+ Left Dors-Pedis (L), 2+ Radial Pulses (R) Extremity: Normal Inspection, No Pedal Edema Neurologic/Psychiatric: Alert, Oriented x3, No Motor/Sensory Deficits, Normal Mood/Affect, computer peripheral equipment operator II-XII Norm as Tested, Other (Cognition dulled) Skin: Normal Color, Warm/Dry Other comments See freetext note Results Lab Laboratory Tests 10/31/20 09:40 11/01/20 02:57 See freetext note Meds See freetext note Radiology See freetext note Procedures See freetext note Assessment/Plan Assessment/Plan See freetext note Critical Care: Critically Ill Patient Time spent with patient (mins): 10 Advance Care discuss with: patient Time spent on discussion(mins): 10 SPENSER ART MD Nov 01, 2020 09:21
[2020-11-01] MEDS: ENOXAPARIN 40 MG/0.4 ML (LOVENOX) SYR SC SCH (11:12)
--- NOTE | 2020-11-01 13:20 | Progress Note - Hospitalist ---
Subjective HPI/CC On Admission Date Seen by Provider: Nov 01, 2020 Time Seen by Provider: 11:20 Jonathan Chavez is a 50 year old male with PMH HTN, HLD, obesity, who presented with chest pain. He described it as a heaviness worsened by cough and deep breathing. He has been short of breath and coughing .He was diagnosed with COVID-19 four days ago. He began having symptoms a few days before that. His was diagnosed before him. He did not receive the COVID vaccine. He has been eating and drinking. He has not been able to taste or smell. He has been having fevers. Subjective/Events-last exam He says he feels about the same this morning. He is tired. He did not sleep well last night. He was short of breath overnight and was placed on Vapotherm. Focused Exam Lactate Level 10/31/20 09:40: Lactic Acid Level 2.61*H 10/31/20 12:00: Lactic Acid Level 1.28 Objective Exam Vital Signs Vital Signs Date Time Temp Pulse Resp B/P (MAP) Pulse Ox O2 Delivery O2 Flow Rate FiO2 11/01/20 12:54 67 11/01/20 12:00 33 127/83 (98) 97 Vapotherm 30.00 35.00 11/01/20 11:15 40 11/01/20 11:15 36.9 Capillary Refill : Less Than 3 Seconds General Appearance: No Apparent Distress, WD/WN Respiratory: Lungs Clear, Normal Breath Sounds, No Respiratory Distress Cardiovascular: Regular Rate, Rhythm, No Edema, No Murmur Gastrointestinal: Normal Bowel Sounds, Non Tender, Soft Extremity: Normal Inspection, Non Tender, No Pedal Edema Neurologic/Psychiatric: Alert, Depressed Affect, Motor Weakness Skin: Normal Color, Warm/Dry Results/Procedures Lab Laboratory Tests 11/01/20 02:57 Patient resulted labs reviewed. Imaging: Reviewed Imaging Films, Reviewed Imaging Report Assessment/Plan Assessment and Plan Assess & Plan/Chief Complaint Acute respiratory failure due to COVID-19 Bacterial pneumonia Elevated procalcitonin Lactic acidosis Pleuritic chest pain Elevated d-dimer Elevated LFTs COVID+ 10/28, symptoms started about 8 days prior to arrival Now requiring Vapotherm Continue Decadron Not started on Remdesivir due to BiPAP/Vapotherm requirement Convalescent plasma ordered Cefepime and Azithromycin Prophylactic Lovenox TeleICU consulted Cardiology consulted HTN HLD Continue home meds Obesity Clinically significant, no acute management needs DVT prophylaxis: Lovenox Critical Care Critically Ill Patient Diagnosis/Problems Diagnosis/Problems (1) Acute respiratory failure due to COVID-19 Status: Acute (2) Bacterial pneumonia Status: Acute (3) Lactic acidosis Status: Acute (4) Elevated LFTs Status: Acute (5) Elevated procalcitonin Status: Acute (6) Obesity Status: Chronic (7) HTN (hypertension) Status: Chronic (8) HLD (hyperlipidemia) Status: Chronic SVETLANA POWELL MD Nov 01, 2020 13:20
--- NOTE | 2020-11-01 15:05 | Consultation-Cardiology ---
HPI-Cardiology Cardiology Consultation: Date of Consultation 11/01/20 Time Seen by a Provider: 14:15 Date of Admission Attending Physician Zabrina Denise MD Admitting Physician Brown Rubio MD Consulting Physician FARZAD CHO MD, MA, FACP, FACC, FSCAI, CCDS HPI: Chief Complaint: CC: Shortness of breath and chest discomfort HPI 50 yo man, recently diagnosed with COVID-19, admitted to Dr Denise on 10/31/20 with increasing shortness of breath, gen malaise, and persistent chest discomfort. Chest discomfort was transthoracic, worse with coughing and deep breathing, present continuously for over a day, currently resolved, mild to mod, w/o radiation, w/o aggravating or relieving factors, not experienced before. No palp or syncope. No swelling. Fever and chills at home. Gen weakness and malaise present Review of Systems-Cardiology Review of Systems Constitutional: As described under HPI Eyes: No vision change Ears/Nose/Throat: No ear discharge, No nasal drainage, No recent hearing loss Respiratory: As described under HPI Cardiovascular: As described under HPI Gastrointestinal: No constipation, No diarrhea, No nausea, No vomiting Genitourinary: No dysuria, No hematuria, No urine frequency changes Skin: No rash, No ulcerations Psychiatric/Neurological: No seizure, No focal weakness, No syncope Hematologic: No bleeding abnormalities GRT-Kpduft-Dexmiy Hx Patient Social History Smoking Status: Never a Smoker 2nd Hand Smoke Exposure: Yes Have you traveled recently?: No Alcohol Use?: No Pt feels they are or have been: No Immunizations Up To Date Tetanus Booster (TDap): Unknown Date of Influenza Vaccine: Feb 20, 2017 Past Medical History PMH As described under Assessment. Family Medical History Family Medical History: He does not report any fam h/o early CAD or SCD Family History: Patient reports no known family medical history. Allergies and Home Medications Allergies Coded Allergies: morphine (Verified Allergy, Mild, N/V, 10/24/17) Home Medications Albuterol Sulfate 1 Puff Puff, 2 PUFF INH Q4H PRN for SHORTNESS OF BREATH 1 PUFF = 90 MCG Prescribed by: HALLE EDGE on 10/28/20 2198 Last Action: Last Taken Edited Allopurinol 300 Mg Tablet, 300 MG PO DAILY, (Reported) Last Action: Last Taken Edited Azithromycin 250 Mg Tablet, 250 MG PO DAILY Prescribed by: HALLE EDGE on 10/28/201812 Last Action: Last Taken Edited Diazepam 5 Mg Tablet, 5 MG PO TID PRN for ANXIETY, (Reported) Last Action: Last Taken Edited Hydrocodone Bit/Acetaminophen 1 Each Tablet, 1 TAB PO Q4H PRN for PAIN-MODERATE, (Reported) Last Action: Last Taken Edited Methylprednisolone 4 Mg Tab.ds.pk, 4 MG PO UD PER DOSE PACK INSTRUCTIONS Prescribed by: HALLE EDGE on 10/28/201812 Last Action: Last Taken Edited Metoprolol Succinate 50 Mg Tab.er.24h, 50 MG PO HS, (Reported) Last Action: Last Taken Edited Patient Home Medication List Home Medication List Reviewed: Yes Physical Exam-Cardiology Physical Exam Vital Signs/I&O 11/01/20 11/01/20 11/01/20 11/01/20 04:00 04:00 04:16 05:00 Temp 39.0 Pulse 90 79 Resp 19 B/P (MAP) 148/71 (96) 119/77 (91) Pulse Ox 92 96 O2 Delivery High Flow N/C Vapotherm High Flow N/C Vapotherm O2 Flow Rate 10.00 30.00 10.00 30.00 40.00 40.00 FiO2 91 11/01/20 11/01/20 11/01/20 11/01/20 05:09 06:00 07:00 07:00 Pulse 78 72 70 Resp 23 B/P (MAP) 119/76 (90) 118/74 (89) Pulse Ox 93 94 97 O2 Delivery Vapotherm Vapotherm Vapotherm O2 Flow Rate 30.00 30.00 30.00 40.00 40.00 FiO2 45 11/01/20 11/01/20 11/01/20 11/01/20 07:05 07:37 07:51 08:00 Temp 37.1 Pulse 68 Resp 35 B/P (MAP) 120/78 (92) Pulse Ox 97 95 O2 Delivery Vapotherm Vapotherm Vapotherm O2 Flow Rate 35.00 35.00 35.00 50.00 50.00 FiO2 50 11/01/20 11/01/20 11/01/20 11/01/20 08:39 09:00 10:00 11:00 Pulse 71 68 70 Resp 13 B/P (MAP) 127/91 (103) 128/81 (97) 124/82 (96) Pulse Ox 95 97 94 95 O2 Delivery Vapotherm Vapotherm Vapotherm Vapotherm O2 Flow Rate 35.00 35.00 35.00 35.00 50.00 50.00 50.00 FiO2 50 11/01/20 11/01/20 11/01/20 11/01/20 11:15 11:15 11:16 12:00 Temp 36.9 Pulse 67 Resp 33 B/P (MAP) 127/83 (98) Pulse Ox 95 97 O2 Delivery Vapotherm Vapotherm Vapotherm O2 Flow Rate 35.00 30.00 30.00 35.00 35.00 FiO2 40 11/01/20 11/01/20 11/01/20 12:54 13:00 14:00 Pulse 67 68 73 Resp 26 19 B/P (MAP) 128/84 (99) 127/85 (99) Pulse Ox 96 97 O2 Delivery Vapotherm Vapotherm O2 Flow Rate 30.00 30.00 35.00 35.00 11/01/20 00:00 Intake Total 700 ml Output Total 1575 ml Balance -875 ml Capillary Refill : Less Than 3 Seconds Constitutional: AAO x 3, well-developed, well-nourished HEENT: EOMI, hearing is well preserved; No xanthelasmas are seen Neck: carotid pulses are 2 + bilaterally, with good upstrokes Respiratory: No accessory muscle use; other (good bilateral air entry) Cardiovascular: regular rate-rhythm, S1 and S2, systolic murmur (soft ROCIO at card base) Gastrointestinal: No tender; soft; No guarding, No rebound; audible bowel sounds Extremities: No clubbing, No cyanosis, No significant edema Neurologic/Psychiatric: oriented x 3, other (moves all limbs equally) Skin: normal color, warm/dry; No rash on exposed areas, No ulcerations on exposed areas Data Review Labs Laboratory Tests 10/31/20 16:05: Troponin I < 0.028 11/01/20 02:57: White Blood Count 11.9H, Red Blood Count 4.81, Hemoglobin 14.7, Hematocrit 44, Mean Corpuscular Volume 91, Mean Corpuscular Hemoglobin 31, Mean Corpuscular Hemoglobin Concent 34, Red Cell Distribution Width 12.8, Platelet Count 242, Mean Platelet Volume 10.3, Immature Granulocyte % (Auto) 1, Neutrophils (%) (Auto) 91H, Lymphocytes (%) (Auto) 4L, Monocytes (%) (Auto) 4, Eosinophils (%) (Auto) 0, Basophils (%) (Auto) 0, Neutrophils # (Auto) 10.9H, Lymphocytes # (Auto) 0.5L, Monocytes # (Auto) 0.4, Eosinophils # (Auto) 0.0, Basophils # (Auto) 0.0, Immature Granulocyte # (Auto) 0.1, Sodium Level 140, Potassium Level 3.9, Chloride Level 107, Carbon Dioxide Level 21, Anion Gap 12, Blood Urea Nitrogen 21H, Creatinine 0.96, Estimat Glomerular Filtration Rate > 60, BUN/Creatinine Ratio 22, Glucose Level 100, Calcium Level 8.9, Corrected Calcium 9.5, Phosphorus Level 2.2L, Magnesium Level 2.1, Total Bilirubin 0.8, Aspartate Amino Transf (AST/SGOT) 43H, Alanine Aminotransferase (ALT/SGPT) 58H, Alkaline Phosphatase 87, Total Protein 6.7, Albumin 3.3, Triglycerides Level 106, Cholesterol Level 159, LDL Cholesterol Direct 98, VLDL Cholesterol 21, HDL Cholesterol 42 Microbiology 10/31/20 MRSA Screen - Final, Complete MRSA not isolated Laboratory Tests 10/31/20 09:40 11/01/20 02:57 A/P-Cardiology Assessment/Admission Diagnosis Pleuritic chest discomfort due to COVID-19 pneumonia - CT chest on 10/31/20: No PE, progressive appearance of the patchy multifocal opacities throughout both lungs compatible with worsening Covid 19 pneumonia. Discussion and Recomendations * Management of COVID-19 pneumonia is with the Hospitalist mariah * Continue tele for now * Monitor labs FARZAD CHO MD FACP [facility] CCDS Nov 01, 2020 15:05
[2020-11-02] MEDS: guaiFENesin SYRUP 100 MG/5 ML 10 ML (ROBITUSSIN SF) PO PRN ×2 (00:42→05:13)
[2020-11-02] MEDS: ONDANSETRON 4 MG/2 ML (SDV) Z0FRAN IV PRN (00:42)
[2020-11-02] MEDS ORDERED: PROCHLORPERAZINE 10 MG/2ML INJ (COMPAZINE) IV PRN (01:15)
[2020-11-02] MEDS: RT-ALBUTEROL INHALER HFA (VENTOLIN HFA) 18 GM IH SCH ×3 (01:59→22:09)
[2020-11-02] MEDS: CEFEPIME 1,000 MG/SWFI 10 ML IV PUSH IV SCH ×6 (05:14→18:13)
[2020-11-02] MEDS: ACETAMINOPHEN 325 MG TABLET PO PRN (05:16)
[2020-11-02 07:47] LABS: BASOPHILS % (AUTO) 0 % (0-10); EOSINOPHILS % (AUTO) 0 % (0-10); HEMATOCRIT 42 % (40-54); HEMOGLOBIN 14.3 g/dL (13.3-17.7); LYMPHOCYTES # (AUTO) 0.8 10^3/uL (1.0-4.0); LYMPHOCYTES % (AUTO) 6 % (12-44); MEAN CORPUSCULAR HEMOGLOBIN 31 pg (25-34); MEAN CORPUSCULAR HGB CONC 34 g/dL (32-36); MEAN CORPUSCULAR VOLUME 90 fL (80-99); MEAN PLATELET VOLUME 9.7 fL (9.0-12.2); MONOCYTES # (AUTO) 0.5 10^3/uL (0.0-1.0); MONOCYTES % (AUTO) 4 % (0-12); NEUTROPHILS # (AUTO) 11.1 10^3/uL (1.8-7.8); NEUTROPHILS % (AUTO) 88 % (42-75); PLATELET COUNT 274 10^3/uL (130-400); WHITE BLOOD COUNT 12.5 10^3/uL (4.3-11.0)
[2020-11-02 08:06] LABS: BUN/CREATININE RATIO 26; CALCIUM 8.9 MG/DL (8.5-10.1); CARBON DIOXIDE 19 MMOL/L (21-32); CHLORIDE 104 MMOL/L (98-107); CREATININE SERUM 0.93 MG/DL (0.60-1.30); GFR ESTIMATED > 60; GLUCOSE 107 MG/DL (70-105); MAGNESIUM 2.2 MG/DL (1.6-2.4); PHOSPHORUS 2.9 MG/DL (2.3-4.7); POTASSIUM 3.8 MMOL/L (3.6-5.0); SODIUM 134 MMOL/L (135-145)
[2020-11-02] MEDS: ASPIRIN E.C. 81 MG (ECOTRIN) TAB PO SCH (08:15)
[2020-11-02] MEDS: DEXTROMETHORPHAN SUSP 30 MG/5 ML 30 ML (DELSYM) PO SCH ×2 (08:15→19:52)
[2020-11-02] MEDS: AZITHROMYCIN 250 MG/NS 250 ML IVPB IV SCH ×2 (08:15)
--- NOTE | 2020-11-02 09:07 | Progress Note - Hospitalist ---
Subjective HPI/CC On Admission Date Seen by Provider: Nov 02, 2020 Time Seen by Provider: 09:01 Jonathan Chavez is a 50 year old male with PMH HTN, HLD, obesity, who presented with chest pain. He described it as a heaviness worsened by cough and deep breathing. He has been short of breath and coughing .He was diagnosed with COVID-19 four days ago. He began having symptoms a few days before that. His was diagnosed before him. He did not receive the COVID vaccine. He has been eating and drinking. He has not been able to taste or smell. He has been having fevers. Subjective/Events-last exam Pt reports feeling ok this morning but having a rough night. Had a lot of coughing. Currently maxed on Vapotherm. Focused Exam Lactate Level 10/31/20 09:40: Lactic Acid Level 2.61*H 10/31/20 12:00: Lactic Acid Level 1.28 Objective Exam Vital Signs Vital Signs Date Time Temp Pulse Resp B/P (MAP) Pulse Ox O2 Delivery O2 Flow Rate FiO2 11/02/20 08:19 36.8 11/02/20 08:00 72 23 121/80 (94) 97 Vapotherm 40.00 100.00 11/02/20 06:59 100 Capillary Refill : Less Than 3 Seconds General Appearance: No Apparent Distress, WD/WN Respiratory: Decreased Breath Sounds, Rhonci; No Wheezing Cardiovascular: Regular Rate, Rhythm, No Murmur Extremity: No Calf Tenderness, No Pedal Edema Neurologic/Psychiatric: Alert, Oriented x3, Normal Mood/Affect Results/Procedures Lab Laboratory Tests 11/02/20 07:35 Patient resulted labs reviewed. Imaging: Reviewed Imaging Films, Reviewed Imaging Report Assessment/Plan Assessment and Plan Assess & Plan/Chief Complaint Acute respiratory failure due to COVID-19 Lactic acidosis Pleuritic chest pain Elevated d-dimer Elevated LFTs COVID+ 10/28 Currently on Vapotherm, maxed out, wean as able Encouraged proning Continue Decadron Not started on Remdesivir due to BiPAP/Vapotherm requirement Convalescent plasma ordered, awaiting arrival Cefepime and Azithromycin due to slightly elevated procal- will get sputum culture CTA without evidence of PE Prophylactic Lovenox TeleICU consulted Cardiology consulted, appreciate recs Troponin negative x2 HTN HLD Continue home meds Obesity Clinically significant, no acute management needs DVT prophylaxis: Lovenox Critical Care Critically Ill Patient FRANCIS HARRY MD Nov 02, 2020 09:06
[2020-11-02] MEDS ORDERED: PANTOPRAZOLE 40 MG (PROTONIX) VIAL IV ONE (09:15)
[2020-11-02] MEDS: ENOXAPARIN 40 MG/0.4 ML (LOVENOX) SYR SC SCH (11:14)
--- NOTE | 2020-11-02 11:40 | Tele-ICU Progress Note ---
Subjective Date Seen by a Provider: Nov 02, 2020 Time Seen by a Provider: 11:40 Sepsis Event Evaluation Height, Weight, BMI Height: 6'2.00" Weight: 238lbs. 0.0oz. 107.300109kn; 31.52 BMI Method:Estimated Focused Exam Lactate Level 10/31/20 09:40: Lactic Acid Level 2.61*H 10/31/20 12:00: Lactic Acid Level 1.28 Exam Exam Patient acknowledged, consented, and participated in this virtual visit which was conducted using real time audio/video Vital Signs Date Time Temp Pulse Resp B/P (MAP) Pulse Ox O2 Delivery O2 Flow Rate FiO2 11/02/20 11:27 95 Vapotherm 30.00 50.00 11/02/20 11:19 90 Vapotherm 30.00 100 11/02/20 11:19 36.8 11/02/20 11:00 82 23 137/88 (104) 93 Vapotherm 30.00 70.00 11/02/20 10:30 28 100 Vapotherm 30.00 70.00 11/02/20 10:00 72 31 128/88 (101) 100 Vapotherm 40.00 55.00 11/02/20 09:44 99 Vapotherm 40.00 55 11/02/20 09:41 Vapotherm 40.00 55.00 11/02/20 09:00 80 26 130/82 (98) 92 Vapotherm 40.00 100.00 11/02/20 08:19 36.8 11/02/20 08:00 72 23 121/80 (94) 97 Vapotherm 40.00 100.00 11/02/20 08:00 94 Vapotherm 40.00 100 11/02/20 07:00 79 11/02/20 07:00 82 125/83 (97) 97 Vapotherm 40.00 100.00 11/02/20 06:59 96 Vapotherm 40.00 100 11/02/20 06:00 83 126/81 (96) 91 Vapotherm 40.00 100.00 11/02/20 05:00 93 137/85 (98) 92 Vapotherm 40.00 100.00 11/02/20 04:00 38.3 11/02/20 04:00 79 36 134/85 (100) 83 Vapotherm 40.00 100.00 11/02/20 03:09 Vapotherm 40.00 100 11/02/20 03:00 84 35 123/81 (94) 91 Vapotherm 40.00 100.00 11/02/20 02:00 98 15 130/86 (99) 88 Vapotherm 40.00 100.00 11/02/20 01:59 89 Vapotherm 40.00 100 11/02/20 01:30 Vapotherm 40.00 100.00 11/02/20 01:00 93 11/02/20 01:00 93 159/93 (114) 93 NIV Bilevel 70.00 11/02/20 00:16 38.0 11/02/20 00:00 NIV Bilevel 70.00 11/02/20 00:00 90 152/86 (114) 97 Vapotherm 40.00 80.00 11/01/20 23:45 NIV Bilevel 60 11/01/20 23:13 91 94 11/01/20 23:00 98 21 166/91 (116) 87 Vapotherm 40.00 80.00 11/01/20 22:00 80 25 155/91 (112) 100 Vapotherm 40.00 80.00 11/01/20 21:59 100 Vapotherm 40.00 70 11/01/20 21:13 Vapotherm 40.00 80.00 11/01/20 21:00 80 22 155/94 (123) 97 40.00 90.00 11/01/20 20:30 81 20 144/94 (107) 91 Vapotherm 40.00 90.00 11/01/20 20:27 92 Vapotherm 40.00 90.00 11/01/20 20:00 78 30 157/100 (119) 91 Vapotherm 40.00 60.00 11/01/20 19:45 36.2 11/01/20 19:33 92 Vapotherm 35.00 55 11/01/20 19:25 73 22 147/97 (114) 98 Vapotherm 40.00 60.00 11/01/20 19:00 77 11/01/20 18:00 80 26 135/91 (106) 97 Vapotherm 40.00 65.00 11/01/20 17:00 72 29 144/95 (111) 98 Vapotherm 40.00 65.00 11/01/20 15:59 Vapotherm 40.00 65.00 11/01/20 15:54 92 Vapotherm 35.00 30 11/01/20 15:51 36.1 11/01/20 15:47 36.6 11/01/20 15:00 67 22 132/89 (103) 93 Vapotherm 30.00 35.00 11/01/20 14:00 73 19 127/85 (99) 97 Vapotherm 30.00 35.00 11/01/20 13:00 68 26 128/84 (99) 96 Vapotherm 30.00 35.00 11/01/20 12:54 67 11/01/20 12:00 67 33 127/83 (98) 97 Vapotherm 30.00 35.00 I & O 11/02/20 07:00 Intake Total 2135 ml Output Total 2200 ml Balance -65 ml Height & Weight Height: 6'2.00" Weight: 238lbs. 0.0oz. 107.936792rn; 31.52 BMI Method:Estimated General Appearance: No Apparent Distress, WD/WN HEENT: PERRL/EOMI, Normal ENT Inspection Neck: Normal Inspection; No JVD Respiratory: Decreased Breath Sounds, Rhonci; No Wheezing Cardiovascular: Regular Rate, Rhythm, No Murmur Capillary Refill: Less Than 3 Seconds Extremity: No Calf Tenderness, No Pedal Edema Neurologic/Psychiatric: Alert, Oriented x3, Normal Mood/Affect Skin: Normal Color, Warm/Dry Results Lab Laboratory Tests 11/01/20 02:57 11/02/20 07:35 Assessment/Plan Assessment/Plan (Tele-ICU Physician , Progress Note ) Available chart/ vitals / labs / Images reviewed Video assessment done using teleICU camera, rest of exam as per RN Discussed with RN Events overnight : Afebrile hemodynamically stable, no pressors, I/O = even Drips: LR As per RN exam : Consultants: cards Hospital course: *Covid (+) on 10/28 (10/31) 50 Y admitted with Covid pneumonia/chest pain/ Hypoxia, CT 10/31 - no PE (11/01) Alerts w /sats 80's, vapotherm fio2 incr. to 90%--Then bipap 70%. 11/02- 40L 100% ( off bibap with nausea ) ECHO 11/02 - A/P Acute resp failure, COVID PNA , CT 10/31 - no PE - Vapothem 40L 100% , prn bipap -on hold with nausea - self proning Covid PNA - not on remdesivir ( out of time frame - steroids - Monitor for bact infection - empiric abx started on 10/31 - cefepime , z max Nausea - and exam nontender as per RN - monitor Lines : periph [place]: OG: Nutrition: PO Analgesia: Anxiety/ delirium prn VTE Prophylaxis: lovenox 40 qd Stress Ulcer Prophylaxis: PPI Glycemic Control: + Plans in collaboration with bedside consultants and IM MDs. Discussed with Dr. HARRY Discussed with RN to reach out if any questions or concerns A total of 26minutes of critical care time was devoted to this patient today, required to treat and/or prevent further deterioration of critical care condition ( as above ) . ABRAHAN FERNANDEZ MD Nov 02, 2020 11:40
[2020-11-02] MEDS ORDERED: RT-ALBUINH INH (14:09)
[2020-11-02] MEDS ORDERED: AZIT250T12 PO (14:09)
[2020-11-02] MEDS ORDERED: METH4TAB11 PO (14:09)
[2020-11-02] MEDS ORDERED: HYDR-3820 PO (14:09)
[2020-11-03] MEDS: CEFEPIME 1,000 MG/SWFI 10 ML IV PUSH IV SCH ×10 (00:10→23:40)
[2020-11-03] MEDS: RT-ALBUTEROL INHALER HFA (VENTOLIN HFA) 18 GM IH SCH ×4 (01:45→20:58)
[2020-11-03 03:38] LABS: BASOPHILS % (AUTO) 0 % (0-10); EOSINOPHILS % (AUTO) 0 % (0-10); HEMATOCRIT 46 % (40-54); HEMOGLOBIN 15.6 g/dL (13.3-17.7); LYMPHOCYTES # (AUTO) 0.6 10^3/uL (1.0-4.0); LYMPHOCYTES % (AUTO) 5 % (12-44); MEAN CORPUSCULAR HEMOGLOBIN 31 pg (25-34); MEAN CORPUSCULAR HGB CONC 34 g/dL (32-36); MEAN CORPUSCULAR VOLUME 90 fL (80-99); MEAN PLATELET VOLUME 10.8 fL (9.0-12.2); MONOCYTES # (AUTO) 0.6 10^3/uL (0.0-1.0); MONOCYTES % (AUTO) 6 % (0-12); NEUTROPHILS % (AUTO) 88 % (42-75); PLATELET COUNT 275 10^3/uL (130-400); WHITE BLOOD COUNT 11.4 10^3/uL (4.3-11.0)
[2020-11-03 03:54] LABS: ALBUMIN 3.3 GM/DL (3.2-4.5); CHLORIDE 105 MMOL/L (98-107); POTASSIUM 3.9 MMOL/L (3.6-5.0); SODIUM 137 MMOL/L (135-145)
[2020-11-03 03:55] LABS: CALCIUM 9.1 MG/DL (8.5-10.1)
[2020-11-03 03:56] LABS: GLUCOSE 94 MG/DL (70-105); TOTAL PROTEIN 7.1 GM/DL (6.4-8.2)
[2020-11-03 03:57] LABS: CARBON DIOXIDE 19 MMOL/L (21-32)
[2020-11-03 03:58] LABS: BILIRUBIN,TOTAL 0.9 MG/DL (0.1-1.0)
[2020-11-03 04:00] LABS: ALKALINE PHOSPHATASE 98 U/L (40-136); CREATININE SERUM 0.88 MG/DL (0.60-1.30); GFR ESTIMATED > 60
[2020-11-03 04:01] LABS: BUN/CREATININE RATIO 25
[2020-11-03 04:03] LABS: ALANINE AMINOTRANSFERASE 77 U/L (0-55); MAGNESIUM 2.2 MG/DL (1.6-2.4)
[2020-11-03] MEDS: KCL 20 MEQ TAB (K-DUR) PO SCH (04:19)
[2020-11-03] MEDS: POTASSIUM CL 10MEQ/50ML IVPB 50 ML IV SCH (04:19)
[2020-11-03] MEDS: MAGNESIUM 1 GM/100 ML IVPB 100 ML IV SCH (04:19)
[2020-11-03] MEDS: ASPIRIN E.C. 81 MG (ECOTRIN) TAB PO SCH (08:09)
[2020-11-03] MEDS: PANTOPRAZOLE 40 MG (PROTONIX) VIAL IV SCH (08:10)
[2020-11-03] MEDS: DEXTROMETHORPHAN SUSP 30 MG/5 ML 30 ML (DELSYM) PO SCH ×2 (08:10→21:05)
[2020-11-03] MEDS: AZITHROMYCIN 250 MG/NS 250 ML IVPB IV SCH ×2 (08:10)
--- NOTE | 2020-11-03 08:59 | Progress Note - Hospitalist ---
Subjective HPI/CC On Admission Date Seen by Provider: Nov 03, 2020 Time Seen by Provider: 08:54 Jonathan Chavez is a 50 year old male with PMH HTN, HLD, obesity, who presented with chest pain. He described it as a heaviness worsened by cough and deep breathing. He has been short of breath and coughing .He was diagnosed with COVID-19 four days ago. He began having symptoms a few days before that. His was diagnosed before him. He did not receive the COVID vaccine. He has been eating and drinking. He has not been able to taste or smell. He has been having fevers. Subjective/Events-last exam Pt laying in bed and doing better. He is proning and oxygen requirement decreased. Encouraged him to continue proning as able but to be out of bed today to and work on strength. Focused Exam Lactate Level 10/31/20 09:40: Lactic Acid Level 2.61*H 10/31/20 12:00: Lactic Acid Level 1.28 Objective Exam Vital Signs Vital Signs Date Time Temp Pulse Resp B/P (MAP) Pulse Ox O2 Delivery O2 Flow Rate FiO2 11/03/20 08:19 95 Vapotherm 25.00 50 11/03/20 08:18 36.8 11/03/20 06:00 80 142/93 (109) 11/03/20 04:00 28 Capillary Refill : Less Than 3 Seconds General Appearance: No Apparent Distress, WD/WN Respiratory: Lungs Clear, No Accessory Muscle Use, Other (on vapotherm) Cardiovascular: Regular Rate, Rhythm, No Murmur Neurologic/Psychiatric: Alert, Oriented x3, Normal Mood/Affect Results/Procedures Lab Laboratory Tests 11/03/20 03:10 Patient resulted labs reviewed. Imaging: Reviewed Imaging Films, Reviewed Imaging Report Assessment/Plan Assessment and Plan Assess & Plan/Chief Complaint Acute respiratory failure due to COVID-19 Lactic acidosis Pleuritic chest pain Elevated d-dimer Elevated LFTs COVID+ 10/28 Currently on Vapotherm, maxed out yesterday and weaning down Encouraged proning- doing well with it Continue Decadron Not started on Remdesivir due to BiPAP/Vapotherm requirement Convalescent plasma ordered, awaiting arrival Cefepime and Azithromycin due to slightly elevated procal- awaiting get sputum culture CTA without evidence of PE Prophylactic Lovenox TeleICU consulted Cardiology consulted, appreciate recs Troponin negative x2 If continues to titrate down will hopefully be able to transfer out of the ICU tomorrow HTN HLD Continue home meds Obesity Clinically significant, no acute management needs DVT prophylaxis: Lovenox Critical Care Critically Ill Patient FRANCIS HARRY MD Nov 03, 2020 08:59
[2020-11-03] MEDS ORDERED: FAMOTIDINE 20MG/2ML IV (PEPCID) IVP SCH (09:00)
--- NOTE | 2020-11-03 09:04 | Diagnostic Imaging Report ---
CHEST 1 VIEW, AP/PA ONLY Indication: COVID positive, respiratory failure Comparison: 10/31/2020 Findings: Heterogeneous opacities in the right mid and lower lung zone are unchanged. Patchy opacities in the left lung base are similar. No pneumothorax. Stable cardiomediastinal silhouette. Impression: 1. Stable bilateral pulmonary opacities that may represent a combination of pneumonia and atelectasis. Report was faxed to [facility] by nasreen at 9:04am. Dictated by: Dictated on workstation # [id number]
--- NOTE | 2020-11-03 09:17 | Tele-ICU Progress Note ---
Subjective Date Seen by a Provider: Nov 03, 2020 Time Seen by a Provider: 09:16 Sepsis Event Evaluation Height, Weight, BMI Height: 6'2.00" Weight: 238lbs. 0.0oz. 107.255620ex; 31.52 BMI Method:Estimated Focused Exam Lactate Level 10/31/20 09:40: Lactic Acid Level 2.61*H 10/31/20 12:00: Lactic Acid Level 1.28 Exam Exam Patient acknowledged, consented, and participated in this virtual visit which was conducted using real time audio/video Vital Signs Date Time Temp Pulse Resp B/P (MAP) Pulse Ox O2 Delivery O2 Flow Rate FiO2 11/03/20 08:19 95 Vapotherm 25.00 50 11/03/20 08:18 36.8 11/03/20 06:41 Vapotherm 25.00 50.00 11/03/20 06:00 80 142/93 (109) Vapotherm 20.00 40.00 11/03/20 05:00 73 142/92 (109) 95 Vapotherm 20.00 40.00 11/03/20 04:46 Vapotherm 20.00 40.00 11/03/20 04:45 Vapotherm 25.00 55.00 11/03/20 04:18 Vapotherm 30.00 60 11/03/20 04:00 84 28 150/100 (118) 95 Vapotherm 30.00 70.00 11/03/20 04:00 36.7 11/03/20 03:00 84 28 136/94 (109) 95 Vapotherm 30.00 70.00 11/03/20 02:00 78 35 135/86 (104) 94 Vapotherm 30.00 70.00 11/03/20 01:45 95 Vapotherm 30.00 70 11/03/20 01:00 68 17 136/90 (107) 98 Vapotherm 30.00 70.00 11/03/20 01:00 71 11/03/20 00:13 77 137/91 (106) 86 Vapotherm 30.00 70.00 11/03/20 00:13 36.4 Vapotherm 30.00 70.00 11/02/20 23:33 Vapotherm 25.00 55 11/02/20 23:00 80 19 113/78 (91) 92 Vapotherm 25.00 55.00 11/02/20 22:09 95 Vapotherm 25.00 55 11/02/20 22:00 74 30 118/80 (93) 94 Vapotherm 25.00 55.00 11/02/20 21:00 73 19 116/74 (89) 90 Vapotherm 25.00 55.00 11/02/20 20:00 73 21 114/70 (87) 93 Vapotherm 25.00 55.00 11/02/20 19:58 94 Vapotherm 25.00 55 11/02/20 19:51 36.6 73 22 119/76 (90) 95 Vapotherm 25.00 55.00 11/02/20 19:00 84 120/70 (87) 90 Vapotherm 25.00 90.00 11/02/20 19:00 84 11/02/20 18:49 92 Vapotherm 25.00 55 11/02/20 18:00 79 114 114/72 (86) 72 Vapotherm 25.00 90.00 11/02/20 17:00 63 39 114/74 (87) 94 Vapotherm 25.00 90.00 11/02/20 16:00 36.0 11/02/20 16:00 79 35 110/70 (83) 90 Vapotherm 25.00 90.00 11/02/20 15:45 94 Vapotherm 25.00 55 11/02/20 15:31 96 Vapotherm 25.00 65 11/02/20 15:00 74 31 114/70 (85) 99 Vapotherm 25.00 90.00 11/02/20 14:11 24 100 Vapotherm 25.00 90.00 11/02/20 14:00 70 30 121/76 (91) 98 Vapotherm 30.00 50.00 11/02/20 13:00 79 32 127/77 (94) 98 Vapotherm 30.00 50.00 11/02/20 13:00 79 11/02/20 12:00 74 30 126/83 (97) 99 Vapotherm 30.00 50.00 11/02/20 11:27 95 Vapotherm 30.00 50.00 11/02/20 11:19 90 Vapotherm 30.00 100 11/02/20 11:19 36.8 11/02/20 11:00 82 23 137/88 (104) 93 Vapotherm 30.00 70.00 11/02/20 10:30 28 100 Vapotherm 30.00 70.00 11/02/20 10:00 72 31 128/88 (101) 100 Vapotherm 40.00 55.00 11/02/20 09:44 99 Vapotherm 40.00 55 11/02/20 09:41 Vapotherm 40.00 55.00 I & O 11/03/20 07:00 Intake Total 1440 ml Output Total 2550 ml Balance -1110 ml Height & Weight Height: 6'2.00" Weight: 238lbs. 0.0oz. 107.625947od; 31.52 BMI Method:Estimated General Appearance: No Apparent Distress, WD/WN HEENT: PERRL/EOMI, Normal ENT Inspection Neck: Normal Inspection; No JVD Respiratory: Lungs Clear, No Accessory Muscle Use, Other (on vapotherm) Cardiovascular: Regular Rate, Rhythm, No Murmur Capillary Refill: Less Than 3 Seconds Peripheral Pulses: 2+ Left Dors-Pedis (L), 2+ Radial Pulses (R) Extremity: Normal Inspection, No Pedal Edema Neurologic/Psychiatric: Alert, Oriented x3, Normal Mood/Affect Skin: Normal Color, Warm/Dry Results Lab Laboratory Tests 11/02/20 07:35 11/03/20 03:10 Assessment/Plan Assessment/Plan (Tele-ICU Physician , Progress Note ) Available chart/ vitals / labs / Images reviewed Video assessment done using teleICU camera, rest of exam as per RN Discussed with RN Events overnight : good night Afebrile hemodynamically stable, no pressors, I/O = neg 900 Drips: As per RN exam : sounds better, cracles , no edema Consultants: cards Hospital course: *Covid (+) on 10/28 (10/31) 50 Y admitted with Covid pneumonia/chest pain/ Hypoxia, CT 10/31 - no PE (11/01) Alerts w /sats 80's, vapotherm fio2 incr. to 90%--Then bipap 70%. 11/02- 40L 100% ( off bibap with nausea ) A/P Acute resp failure, COVID PNA , CT 10/31 - no PE - Vapothem 25L 55%, off bipap -on hold with nausea - self proning - minimally Covid PNA - not on remdesivir ( out of time frame - steroids Monitor for bact infection - empiric abx started on 10/31 - cefepime , z max Nausea - resolved - and exam nontender as per RN - monitor Lines : periph Alegria: OG: Nutrition: PO Analgesia: Anxiety/ delirium prn VTE Prophylaxis: lovenox 40 qd Stress Ulcer Prophylaxis: PPI Glycemic Control: + Plans in collaboration with bedside consultants and IM MDs. Discussed with RN to reach out if any questions or concerns A total of 26minutes of critical care time was devoted to this patient today, required to treat and/or prevent further deterioration of critical care condition ( as above ) . ABRAHAN FERNANDEZ MD Nov 03, 2020 09:16
[2020-11-03] MEDS: ENOXAPARIN 40 MG/0.4 ML (LOVENOX) SYR SC SCH (12:05)
--- NOTE | 2020-11-03 13:22 | Physical Therapy Progress Note ---
Therapy Progress Note Patient on Hold per RN secondary to increase in O2 demand with decrease in SAO2. Patient currently on vapotherm with increase in settings. GM CHUNG PT Nov 03, 2020 13:22
[2020-11-03 14:23] VITALS: BP 126/91
[2020-11-03] MEDS ORDERED: ENOXAPARIN 100 MG/1 ML (LOVENOX) SYR SC SCH (16:30)
[2020-11-03] MEDS ORDERED: ENOXAPARIN 80 MG/0.8 ML (LOVENOX) SYR SC SCH (17:00)
[2020-11-03 17:13] LABS: ABG BASE EXCESS -2.6 MMOL/L (-2.5-2.5); ABG OXYGEN SATURATION 96 % (94-100); ABG PCO2 32 MMHG (35-45); ABG PH 7.43 (7.37-7.43); ABG PO2 81 MMHG (79-93); ABG TCO2 22.2 MMOL/L (21.0-31.0); ALLENS TEST YES-POS
[2020-11-03 17:14] LABS: INSPIRED O2 70%; PATIENT TEMP 36.3; VENTILATOR NO
[2020-11-03] MEDS: DexMEDEtomidine 250 ML DRIP 250 ML IV SCH (20:14)
[2020-11-03 20:58] VITALS: BP 132/92
[2020-11-04 02:45] VITALS: BP 143/91
[2020-11-04] MEDS: RT-ALBUTEROL INHALER HFA (VENTOLIN HFA) 18 GM IH SCH ×4 (03:07→21:28)
[2020-11-04 03:11] LABS: ABG BASE EXCESS -1.3 MMOL/L (-2.5-2.5); ABG OXYGEN SATURATION 97 % (94-100); ABG PCO2 33 MMHG (35-45); ABG PH 7.44 (7.37-7.43); ABG PO2 95 MMHG (79-93); ABG TCO2 23.7 MMOL/L (21.0-31.0)
[2020-11-04 03:15] LABS: ALLENS TEST YES-POS; INSPIRED O2 60%; PATIENT TEMP 35.6; VENTILATOR NO
[2020-11-04 04:53] LABS: BASOPHILS % (AUTO) 0 % (0-10); EOSINOPHILS % (AUTO) 0 % (0-10); HEMATOCRIT 45 % (40-54); HEMOGLOBIN 15.3 g/dL (13.3-17.7); LYMPHOCYTES # (AUTO) 0.8 10^3/uL (1.0-4.0); LYMPHOCYTES % (AUTO) 8 % (12-44); MEAN CORPUSCULAR HEMOGLOBIN 30 pg (25-34); MEAN CORPUSCULAR HGB CONC 34 g/dL (32-36); MEAN CORPUSCULAR VOLUME 90 fL (80-99); MEAN PLATELET VOLUME 11.1 fL (9.0-12.2); MONOCYTES # (AUTO) 0.6 10^3/uL (0.0-1.0); MONOCYTES % (AUTO) 7 % (0-12); NEUTROPHILS # (AUTO) 8.1 10^3/uL (1.8-7.8); NEUTROPHILS % (AUTO) 83 % (42-75); PLATELET COUNT 246 10^3/uL (130-400); WHITE BLOOD COUNT 9.7 10^3/uL (4.3-11.0)
[2020-11-04 05:02] LABS: CHLORIDE 106 MMOL/L (98-107); POTASSIUM 4.5 MMOL/L (3.6-5.0); SODIUM 137 MMOL/L (135-145)
[2020-11-04 05:03] LABS: CALCIUM 9.1 MG/DL (8.5-10.1)
[2020-11-04 05:04] LABS: GLUCOSE 98 MG/DL (70-105)
[2020-11-04 05:05] LABS: CARBON DIOXIDE 19 MMOL/L (21-32)
[2020-11-04 05:08] LABS: CREATININE SERUM 0.88 MG/DL (0.60-1.30); GFR ESTIMATED > 60; PHOSPHORUS 3.7 MG/DL (2.3-4.7)
[2020-11-04 05:09] LABS: BUN/CREATININE RATIO 31
[2020-11-04 05:10] LABS: MAGNESIUM 2.3 MG/DL (1.6-2.4)
[2020-11-04] MEDS: MAGNESIUM 1 GM/100 ML IVPB 100 ML IV SCH (05:22)
[2020-11-04] MEDS: KCL 20 MEQ TAB (K-DUR) PO SCH (05:22)
[2020-11-04] MEDS: POTASSIUM CL 10MEQ/50ML IVPB 50 ML IV SCH (05:22)
[2020-11-04] MEDS: ENOXAPARIN 300 MG/3 ML (LOVENOX) MULTI-DOSE VIAL SQ SCH ×2 (05:42→17:18)
[2020-11-04] MEDS: CEFEPIME 1,000 MG/SWFI 10 ML IV PUSH IV SCH ×6 (05:42→17:18)
[2020-11-04 07:37] VITALS: BP 126/93
[2020-11-04] MEDS: PANTOPRAZOLE 40 MG (PROTONIX) VIAL IV SCH (07:58)
[2020-11-04] MEDS: AZITHROMYCIN 250 MG/NS 250 ML IVPB IV SCH ×2 (07:58)
--- NOTE | 2020-11-04 08:26 | Progress Note - Hospitalist ---
Subjective HPI/CC On Admission Date Seen by Provider: Nov 04, 2020 Time Seen by Provider: 08:20 Jonathan Chavez is a 50 year old male with PMH HTN, HLD, obesity, who presented with chest pain. He described it as a heaviness worsened by cough and deep breathing. He has been short of breath and coughing .He was diagnosed with COVID-19 four days ago. He began having symptoms a few days before that. His was diagnosed before him. He did not receive the COVID vaccine. He has been eating and drinking. He has not been able to taste or smell. He has been having fevers. Subjective/Events-last exam Pt reports doing ok today. Seems more flat today. RN reports that he was quite tearful yesterday when he had to go back on BiPAP. Has done well on BiPAP though. has no complaints. Laying on side currently as he cannot tolerate prone for very long. Objective Exam Vital Signs Vital Signs Date Time Temp Pulse Resp B/P (MAP) Pulse Ox O2 Delivery O2 Flow Rate FiO2 11/04/20 08:06 94 NIV Bilevel 50.00 11/04/20 08:05 60 11/04/20 07:37 46 24 11/04/20 06:00 145/95 (112) 11/04/20 03:20 35.8 Capillary Refill : Less Than 3 Seconds General Appearance: WD/WN, Other (on BiPAP) Respiratory: No Accessory Muscle Use, Decreased Breath Sounds; No Rhonci, No Wheezing; Other (on BiPAP) Cardiovascular: Regular Rate, Rhythm, No Murmur Gastrointestinal: Normal Bowel Sounds, Soft Neurologic/Psychiatric: Alert, Oriented x3, Depressed Affect Results/Procedures Lab Laboratory Tests 11/04/20 04:25 Patient resulted labs reviewed. Imaging: Reviewed Imaging Films, Reviewed Imaging Report Assessment/Plan Assessment and Plan Assess & Plan/Chief Complaint Acute respiratory failure due to COVID-19 Lactic acidosis Pleuritic chest pain Elevated d-dimer Elevated LFTs COVID+ 10/28 Currently on BiPAP, tolerating well, discussed plan for closely monitoring progressing Continue Decadron Not started on Remdesivir due to BiPAP/Vapotherm requirement Convalescent plasma ordered, awaiting arrival- discussed with blood bank and due to recent surge they have had delays, hopeful for arrival today Cefepime and Azithromycin due to slightly elevated procal- awaiting get sputum culture CTA without evidence of PE Prophylactic Lovenox changed to therapeutic given clinical change yesterday- will attempt CT when more stable TeleICU consulted Cardiology consulted, appreciate recs Troponin negative x2 HTN HLD Continue home meds Obesity Clinically significant, no acute management needs DVT prophylaxis: Lovenox Critical Care Critically Ill Patient FRANCIS HARRY MD Nov 04, 2020 08:26
--- NOTE | 2020-11-04 09:11 | Physical Therapy Progress Note ---
Therapy Progress Note Patient is on bipap and on hold this morning per nurse, will check back this afternoon. ZONIA WILKS PT Nov 04, 2020 09:11
[2020-11-04] MEDS: DEXTROMETHORPHAN SUSP 30 MG/5 ML 30 ML (DELSYM) PO SCH ×2 (09:23→21:00)
[2020-11-04] MEDS: ASPIRIN E.C. 81 MG (ECOTRIN) TAB PO SCH (09:23)
--- NOTE | 2020-11-04 10:16 | Tele-ICU Progress Note ---
Subjective Date Seen by a Provider: Nov 04, 2020 Time Seen by a Provider: 10:16 Sepsis Event Evaluation Height, Weight, BMI Height: 6'2.00" Weight: 238lbs. 0.0oz. 107.376825cv; 31.52 BMI Method:Estimated Exam Exam Patient acknowledged, consented, and participated in this virtual visit which was conducted using real time audio/video Vital Signs Date Time Temp Pulse Resp B/P (MAP) Pulse Ox O2 Delivery O2 Flow Rate FiO2 11/04/20 10:00 55 10 129/84 (99) 90 Vapotherm 40.00 70.00 11/04/20 09:24 Vapotherm 40.00 70.00 11/04/20 09:22 97 Vapotherm 40.00 80.00 11/04/20 09:20 97 Vapotherm 40.00 100.00 11/04/20 09:00 51 19 126/90 (102) 91 NIV Bilevel 50.00 11/04/20 08:27 35.4 11/04/20 08:06 94 NIV Bilevel 50.00 11/04/20 08:05 94 NIV Bilevel 60 11/04/20 08:00 50 12 132/94 (107) 93 NIV Bilevel 60.00 11/04/20 07:37 46 24 92 60.00 11/04/20 07:00 45 21 126/93 (104) 94 NIV Bilevel 60.00 11/04/20 06:48 47 11/04/20 06:00 45 25 145/95 (112) 91 NIV Bilevel 60.00 11/04/20 05:00 45 28 146/97 (113) 90 NIV Bilevel 60.00 11/04/20 04:00 91 NIV Bilevel 60 11/04/20 04:00 45 32 119/84 (95) 94 NIV Bilevel 60.00 11/04/20 03:20 35.8 11/04/20 02:45 53 28 94 60.00 11/04/20 02:00 46 26 143/91 (108) 93 NIV Bilevel 60.00 11/04/20 01:00 52 11/04/20 01:00 52 26 138/91 (107) 92 NIV Bilevel 60.00 11/04/20 00:00 94 NIV Bilevel 60 11/04/20 00:00 54 28 128/86 (100) 94 NIV Bilevel 60.00 11/03/20 23:00 47 19 128/92 (106) 94 NIV Bilevel 60.00 11/03/20 22:00 50 26 138/95 (111) 95 NIV Bilevel 60.00 11/03/20 21:00 56 36 122/88 (98) 95 NIV Bilevel 60.00 11/03/20 21:00 NIV Bilevel 60.00 11/03/20 20:58 71 31 95 70.00 11/03/20 20:14 63 128/91 11/03/20 20:00 94 NIV Bilevel 70 11/03/20 20:00 70 23 132/92 (100) 90 NIV Bilevel 70.00 11/03/20 19:58 37.0 11/03/20 19:00 58 11/03/20 19:00 58 29 145/99 (113) 93 NIV Bilevel 70.00 11/03/20 18:26 63 30 96 11/03/20 18:00 64 25 128/91 (103) 96 NIV Bilevel 70.00 11/03/20 16:00 94 NIV Bilevel 70 11/03/20 16:00 71 16 128/91 (103) 92 NIV Bilevel 70.00 11/03/20 15:00 80 55 117/75 (89) 93 NIV Bilevel 70.00 11/03/20 14:23 78 26 91 70.00 11/03/20 14:00 90 33 131/86 (101) 82 NIV Bilevel 70.00 11/03/20 13:25 90 NIV Bilevel 70.00 11/03/20 13:00 90 33 131/86 (101) 82 Vapotherm 40.00 100.00 11/03/20 13:00 91 11/03/20 12:24 98 Vapotherm 40.00 100 11/03/20 12:05 37.0 11/03/20 12:00 75 27 112/73 (86) 100 Vapotherm 40.00 100.00 11/03/20 11:00 80 20 106/69 (81) 95 Vapotherm 40.00 100.00 11/03/20 10:39 92 Vapotherm 40.00 100.00 I & O 11/04/20 07:00 Intake Total 150 ml Output Total 1525 ml Balance -1375 ml Height & Weight Height: 6'2.00" Weight: 238lbs. 0.0oz. 107.063932bt; 31.52 BMI Method:Estimated General Appearance: WD/WN, Other (on BiPAP) HEENT: PERRL/EOMI, Normal ENT Inspection Neck: Normal Inspection Respiratory: No Accessory Muscle Use, Decreased Breath Sounds; No Rhonci, No Wheezing; Other (on BiPAP) Cardiovascular: Regular Rate, Rhythm, No Murmur Capillary Refill: Less Than 3 Seconds Peripheral Pulses: 2+ Left Dors-Pedis (L), 2+ Radial Pulses (R) Extremity: Normal Inspection, No Pedal Edema Neurologic/Psychiatric: Alert, Oriented x3, Depressed Affect Skin: Normal Color, Warm/Dry Results Lab Laboratory Tests 11/03/20 03:10 11/04/20 04:25 Assessment/Plan Assessment/Plan (Tele-ICU Physician , Progress Note ) Available chart/ vitals / labs / Images reviewed Video assessment done using teleICU camera, rest of exam as per RN Discussed with RN Events overnight : good night on BIPAP, neede precedex " for comfort " Afebrile hemodynamically stable, no pressors, I/O = neg 1300 Drips: As per RN exam : sounds better, cracles , no edema Consultants: cards Hospital course: *Covid (+) on 10/28 (10/31) 50 Y admitted with Covid pneumonia/chest pain/ Hypoxia, CT 10/31 - no PE (11/01) Alerts w /sats 80's, vapotherm fio2 incr. to 90%--Then bipap 70%. 11/02- 40L 100% ( off bibap with nausea ) 11/03 - doing well on BIPAP , ? WOB on vapotherm 11/04 BIPAP 50 % A/P Acute resp failure, COVID PNA , CT 10/31 - no PE - Vapothem 25L 55%, BIPAP 18/11 - 50% , rr 24 tv 600 MV 16 L - self proning - minimally - WILL TRY TO KEEP ON BIPAP Q NIGHT ( TO REST RESP MUSCLES) AND VAPOTHERM DURING DAY TIME IF TOLERATED Covid PNA - not on remdesivir ( out of time frame - steroids Monitor for bact infection - empiric abx started on 10/31 - cefepime , z max - ? WBC , cx negative - cxt for tomorrow Nausea - resolved - and exam nontender as per RN - monitor Agitation intermittent ( mostly on BIPAP - intermittent precedex (with bradycrdia) Lines : periph Alegria: OG: Nutrition: PO when on vapotherm Analgesia: Anxiety/ delirium prn VTE Prophylaxis: lovenox 40 qd Stress Ulcer Prophylaxis: PPI Glycemic Control: + Plans in collaboration with bedside consultants and IM MDs. Discussed with RN to reach out if any questions or concerns A total of 26minutes of critical care time was devoted to this patient today, required to treat and/or prevent further deterioration of critical care condition ( as above ) . ABRAHAN FERNANDEZ MD Nov 04, 2020 10:16
--- NOTE | 2020-11-04 13:36 | Physical Therapy Progress Note ---
Therapy Progress Note Patient still on hold, will check back in the morning. ZONIA WILKS PT Nov 04, 2020 13:36
[2020-11-04] MEDS: guaiFENesin SYRUP 100 MG/5 ML 10 ML (ROBITUSSIN SF) PO PRN (21:59)
[2020-11-04 23:53] VITALS: BP 130/91
[2020-11-05] MEDS: CEFEPIME 1,000 MG/SWFI 10 ML IV PUSH IV SCH ×10 (00:20→23:33)
[2020-11-05 02:17] VITALS: BP 130/91
[2020-11-05] MEDS: RT-ALBUTEROL INHALER HFA (VENTOLIN HFA) 18 GM IH SCH ×4 (02:25→21:01)
[2020-11-05 04:30] LABS: BASOPHILS % (AUTO) 0 % (0-10); EOSINOPHILS % (AUTO) 0 % (0-10); HEMATOCRIT 43 % (40-54); HEMOGLOBIN 14.7 g/dL (13.3-17.7); LYMPHOCYTES # (AUTO) 1.1 10^3/uL (1.0-4.0); LYMPHOCYTES % (AUTO) 11 % (12-44); MEAN CORPUSCULAR HEMOGLOBIN 30 pg (25-34); MEAN CORPUSCULAR HGB CONC 34 g/dL (32-36); MEAN CORPUSCULAR VOLUME 89 fL (80-99); MONOCYTES # (AUTO) 0.8 10^3/uL (0.0-1.0); MONOCYTES % (AUTO) 9 % (0-12); NEUTROPHILS # (AUTO) 7.6 10^3/uL (1.8-7.8); NEUTROPHILS % (AUTO) 79 % (42-75); PLATELET COUNT 243 10^3/uL (130-400); WHITE BLOOD COUNT 9.7 10^3/uL (4.3-11.0)
[2020-11-05 04:42] LABS: ALBUMIN 3.1 GM/DL (3.2-4.5); CHLORIDE 107 MMOL/L (98-107); POTASSIUM 4.2 MMOL/L (3.6-5.0); SODIUM 136 MMOL/L (135-145)
[2020-11-05 04:44] LABS: CALCIUM 8.6 MG/DL (8.5-10.1)
[2020-11-05 04:45] LABS: GLUCOSE 88 MG/DL (70-105); TOTAL PROTEIN 6.5 GM/DL (6.4-8.2)
[2020-11-05 04:46] LABS: BILIRUBIN,TOTAL 1.1 MG/DL (0.1-1.0); CARBON DIOXIDE 19 MMOL/L (21-32)
[2020-11-05 04:48] LABS: ALKALINE PHOSPHATASE 98 U/L (40-136); CREATININE SERUM 0.87 MG/DL (0.60-1.30); GFR ESTIMATED > 60; PHOSPHORUS 2.9 MG/DL (2.3-4.7)
[2020-11-05 04:50] LABS: BUN/CREATININE RATIO 31
[2020-11-05 04:51] LABS: ALANINE AMINOTRANSFERASE 131 U/L (0-55)
[2020-11-05 04:52] LABS: MAGNESIUM 2.1 MG/DL (1.6-2.4)
[2020-11-05] MEDS: POTASSIUM CL 10MEQ/50ML IVPB 50 ML IV SCH (05:24)
[2020-11-05] MEDS: KCL 20 MEQ TAB (K-DUR) PO SCH (05:24)
[2020-11-05] MEDS: MAGNESIUM 1 GM/100 ML IVPB 100 ML IV SCH (05:24)
[2020-11-05] MEDS: ENOXAPARIN 300 MG/3 ML (LOVENOX) MULTI-DOSE VIAL SQ SCH ×2 (05:31→18:19)
--- NOTE | 2020-11-05 07:23 | Diagnostic Imaging Report ---
Indication: COVID positive. Respiratory distress. COMPARISON: 11/03/2020. FINDINGS: Continued volume loss with diffuse scattered patchy alveolar infiltrates throughout the right lung. The left lung is well-aerated with minimal infiltrates. The heart upper limits of normal. IMPRESSION: 1. Increased atelectasis right lung base otherwise overall appearance is not significantly changed with scattered infiltrates. Report was faxed to [facility] by nasrene at 7:24AM. Dictated by: Dictated on workstation # [id number]
--- NOTE | 2020-11-05 08:27 | Progress Note - Hospitalist ---
Subjective HPI/CC On Admission Date Seen by Provider: Nov 05, 2020 Time Seen by Provider: 08:26 Jonathan Chavez is a 50 year old male with PMH HTN, HLD, obesity, who presented with chest pain. He described it as a heaviness worsened by cough and deep breathing. He has been short of breath and coughing .He was diagnosed with COVID-19 four days ago. He began having symptoms a few days before that. His was diagnosed before him. He did not receive the COVID vaccine. He has been eating and drinking. He has not been able to taste or smell. He has been having fevers. Subjective/Events-last exam Pt reports doing ok. Had a good night. Currently on BiPAP. Objective Exam Vital Signs Vital Signs Date Time Temp Pulse Resp B/P (MAP) Pulse Ox O2 Delivery O2 Flow Rate FiO2 11/05/20 08:00 37.1 11/05/20 07:00 64 11/05/20 06:00 27 125/80 (95) 95 Vapotherm 30.00 60.00 11/05/20 04:00 75 Capillary Refill : Less Than 3 Seconds General Appearance: No Apparent Distress, WD/WN Respiratory: Decreased Breath Sounds, Other (on BiPAP) Cardiovascular: Regular Rate, Rhythm, No Murmur Neurologic/Psychiatric: Alert, Oriented x3 Results/Procedures Lab Laboratory Tests 11/05/20 04:07 Patient resulted labs reviewed. Imaging: Reviewed Imaging Films, Reviewed Imaging Report Assessment/Plan Assessment and Plan Assess & Plan/Chief Complaint Acute respiratory failure due to COVID-19 Lactic acidosis Pleuritic chest pain Elevated d-dimer Elevated LFTs COVID+ 10/28 Currently on BiPAP, tolerating well, discussed plan for closely monitoring progressing Continue Decadron Not started on Remdesivir due to BiPAP/Vapotherm requirement Convalescent plasma ordered, still awaiting arrival- discussed with blood bank 11/04 and due to recent surge they have had delays Cefepime and Azithromycin due to slightly elevated procal- awaiting sputum culture CTA without evidence of PE Continue therapeutic lovenox TeleICU consulted Cardiology consulted, appreciate recs Troponin negative x2 HTN HLD Continue home meds Obesity Clinically significant, no acute management needs [facility] Patient FRANCIS HARRY MD Nov 05, 2020 08:27
[2020-11-05] MEDS: AZITHROMYCIN 250 MG/NS 250 ML IVPB IV SCH ×2 (08:45)
[2020-11-05] MEDS: ASPIRIN E.C. 81 MG (ECOTRIN) TAB PO SCH (08:45)
[2020-11-05] MEDS: PANTOPRAZOLE 40 MG (PROTONIX) VIAL IV SCH (08:45)
--- NOTE | 2020-11-05 09:26 | Tele-ICU Progress Note ---
Subjective Date Seen by a Provider: Nov 05, 2020 Time Seen by a Provider: 09:25 Sepsis Event Evaluation Height, Weight, BMI Height: 6'2.00" Weight: 238lbs. 0.0oz. 107.349420dc; 31.52 BMI Method:Estimated Exam Exam Patient acknowledged, consented, and participated in this virtual visit which was conducted using real time audio/video Vital Signs Date Time Temp Pulse Resp B/P (MAP) Pulse Ox O2 Delivery O2 Flow Rate FiO2 11/05/20 08:00 37.1 11/05/20 07:00 64 11/05/20 06:00 62 27 125/80 (95) 95 Vapotherm 30.00 60.00 11/05/20 05:00 61 26 120/81 (94) 96 Vapotherm 30.00 60.00 11/05/20 04:00 95 Vapotherm 30.00 75 11/05/20 04:00 58 34 116/82 (93) 97 Vapotherm 30.00 60.00 11/05/20 03:00 61 28 122/80 (94) 96 Vapotherm 30.00 60.00 11/05/20 02:17 68 30 93 70.00 11/05/20 02:00 63 116/83 (94) 97 Vapotherm 30.00 60.00 11/05/20 01:00 74 21 127/84 (98) 97 Vapotherm 30.00 60.00 11/05/20 01:00 75 11/05/20 00:00 77 19 132/84 (100) 95 Vapotherm 30.00 60.00 11/05/20 00:00 96 NIV Bilevel 70 11/04/20 23:53 75 24 93 70.00 11/04/20 23:00 79 22 130/91 (104) 93 Vapotherm 30.00 60.00 11/04/20 22:00 73 25 123/82 (96) 91 Vapotherm 30.00 60.00 11/04/20 21:28 92 Vapotherm 30.00 70 11/04/20 21:00 69 18 132/94 (107) 95 Vapotherm 30.00 60.00 11/04/20 20:00 67 26 126/84 (98) 93 Vapotherm 30.00 60.00 11/04/20 20:00 95 Vapotherm 30.00 75 11/04/20 19:00 68 18 123/82 (96) 97 Vapotherm 30.00 60.00 11/04/20 19:00 64 11/04/20 18:47 93 Vapotherm 30.00 60 11/04/20 18:00 71 10 116/90 (99) 89 Vapotherm 30.00 60.00 11/04/20 17:25 26 97 Vapotherm 30.00 60.00 11/04/20 17:16 26 96 Vapotherm 40.00 50.00 11/04/20 17:00 70 39 129/84 (99) 94 Vapotherm 40.00 70.00 11/04/20 16:20 94 Vapotherm 40.00 70 11/04/20 16:20 94 Vapotherm 40.00 70.00 11/04/20 16:00 67 15 118/80 (93) 96 Vapotherm 40.00 75.00 11/04/20 15:55 36.8 11/04/20 15:32 Vapotherm 40.00 75.00 11/04/20 15:00 71 18 113/77 (89) 96 Vapotherm 40.00 80.00 11/04/20 14:33 92 Vapotherm 40.00 75 11/04/20 14:00 62 18 113/80 (91) 96 Vapotherm 40.00 80.00 11/04/20 13:16 92 Vapotherm 40.00 80.00 11/04/20 13:00 66 28 111/79 (90) 95 Vapotherm 40.00 100.00 11/04/20 12:30 63 11/04/20 12:00 53 25 126/76 (93) 100 Vapotherm 40.00 100.00 11/04/20 12:00 96 Vapotherm 40.00 100 11/04/20 11:48 35.8 11/04/20 11:00 62 24 115/76 (89) 91 Vapotherm 40.00 100.00 11/04/20 10:42 93 Vapotherm 40.00 100 11/04/20 10:26 Vapotherm 40.00 100.00 11/04/20 10:00 55 10 129/84 (99) 90 Vapotherm 40.00 70.00 I & O 11/05/20 07:00 Intake Total 3250 ml Output Total 2200 ml Balance 1050 ml Height & Weight Height: 6'2.00" Weight: 238lbs. 0.0oz. 107.657521ej; 31.52 BMI Method:Estimated General Appearance: No Apparent Distress, WD/WN HEENT: PERRL/EOMI, Normal ENT Inspection Neck: Normal Inspection Respiratory: Decreased Breath Sounds, Other (on BiPAP) Cardiovascular: Regular Rate, Rhythm, No Murmur Capillary Refill: Less Than 3 Seconds Peripheral Pulses: 2+ Left Dors-Pedis (L), 2+ Radial Pulses (R) Extremity: Normal Inspection, No Pedal Edema Neurologic/Psychiatric: Alert, Oriented x3 Skin: Normal Color, Warm/Dry Results Lab Laboratory Tests 11/04/20 04:25 11/05/20 04:07 Assessment/Plan Assessment/Plan (Tele-ICU Physician , Progress Note ) Available chart/ vitals / labs / Images reviewed Video assessment done using teleICU camera, rest of exam as per RN Discussed with RN Events overnight : good night on BIPAP, neede precedex " for comfort " Afebrile hemodynamically stable, no pressors, I/O = neg 300 Drips: As per RN exam : sounds better, cracles , no edema Consultants: cards Hospital course: *Covid (+) on 10/28 (10/31) 50 Y admitted with Covid pneumonia/chest pain/ Hypoxia, CT 10/31 - no PE (11/01) Alerts w /sats 80's, vapotherm fio2 incr. to 90%--Then bipap 70%. 11/02- 40L 100% ( off bibap with nausea ) 11/03 - doing well on BIPAP , ? WOB on vapotherm 11/04 BIPAP 50 % A/P Acute resp failure, COVID PNA , CT 10/31 - no PE - Vapothem 25L 55%, BIPAP 18/11 - 50% , rr 24 tv 600 MV 16 L - self proning - minimally - WILL TRY TO KEEP ON BIPAP Q NIGHT ( TO REST RESP MUSCLES) AND VAPOTHERM DURING DAY TIME IF TOLERATED Covid PNA - not on remdesivir ( out of time frame - steroids Monitor for bact infection - empiric abx started on 10/31 - cefepime , z max - ? WBC , cx negative - cxt for tomorrow Nausea - resolved - and exam nontender as per RN - monitor Agitation intermittent ( mostly on BIPAP - intermittent precedex (with bradycrdia) Lines : periph Alegria: OG: Nutrition: PO when on vapotherm Analgesia: Anxiety/ delirium prn VTE Prophylaxis: lovenox 40 qd Stress Ulcer Prophylaxis: PPI Glycemic Control: + Plans in collaboration with bedside consultants and IM MDs. Discussed with RN to reach out if any questions or concerns A total of 26minutes of critical care time was devoted to this patient today, required to treat and/or prevent further deterioration of critical care condition ( as above ) . ABRAHAN FERNANDEZ MD Nov 05, 2020 09:26
--- NOTE | 2020-11-05 10:41 | Physical Therapy Evaluation ---
PT Evaluation-General Medical Diagnosis Admission Date Oct 31, 2020 at 11:07 Medical Diagnosis: Covid/respiratory failure/CP Onset Date: Oct 31, 2020 Therapy Diagnosis Therapy Diagnosis: debility/weakness Height/Weight Height (Feet): 6 Height (Inches): 2.00 Weight (Pounds): 238 Weight (Ounces): 0.0 Precautions Precautions/Isolations: Airborne Isolation, Fall Prevention Referral Physician: Daiana Reason for Referral: Evaluation/Treatment Medical History Pertinent Medical History: HTN, Neuropathy Current History ER secondary to increase SOA and CP/Covid (+) Reviewed History: Yes Social History Current Living Status: Spouse Prior Prior Level of Function SCALE: Activities may be completed with or without assistive devices. 0-Mqobudpvab-zpdbicb completes the activity by him/herself with no assistance from a helper. 5-Set-up or Clean-up Assistance-helper sets up or cleans up; patient completes activity. [place] assists only prior to or following the activity. 4-Supervision or Touching Assistance-helper provides verbal cues and/or touching/steadying and/or contact guard assistance as patient completes activity. Assistance may be provided throughout the activity or intermittently. 3-Partial/Moderate Assistance-helper does LESS THAN HALF the effort. [place] lifts, holds or supports trunk or limbs, but provides less than half the effort. 2-Substantial/Maximal Assistance-helper does MORE THAN HALF the effort. [place] lifts or holds trunk or limbs and provides more than half the effort. 2-Hpektltoe-acmhhl does ALL the effort. Patient does none of the effort to complete the activity. Or, the assistance of 2 or more helpers is required for the patient to complete the activity. If activity was not attempted, code reason: 7-Patient Refused. 9-Not Applicable-not attempted and the patient did not perform the activity before the current illness, exacerbation or injury. 10-Not Attempted due to Environmental Limitations-(lack of equipment, weather restraints, etc.). 88-Not Attempted due to Medical Conditions or Safety Concerns. Bed Mobility: 6 Transfers (B,C,W/C): 6 Gait: 6 Stairs: 6 Indoor Mobility (Ambulation): Independent Stairs: Independent Prior Devices Use: None PT Evaluation-Current Subjective Patient agrees to PT. Objective Patient Orientation: Normal For Age Attachments: Oxygen (vapotherm) ROM/Strength ROM Lower Extremities bilateral LE WFL Strength Lower Extremities 4/5 grossly bilateral LE Integumentary/Posture Bowel Incontinence: No Bladder Incontinence: No Posture WFL Neuromuscular (Tone, Coordination, Reflexes) grossly intact Sensory Vision: Functional Hearing: Functional Transfers Sit to Lying (QC): 6 Lying to Sitting/Side of Bed(Q: 6 Sit to Stand (QC): 88 Chair/Bmf-wk-Yfsov Xfer(QC): 88 Gait Does the Patient Walk?: No and Walking Goal IS indicated Balance Sitting Static: Normal Sitting Dynamic: Normal Treatment Prior to PT session, RN instructed PT to increase Vapotherm from 85% at 30L to 100% at 35L. Patient SAO2 with transitioning from sidelying right to sitting EOB, decreased to 79% and did not come up with time. PT ceased session and patient returned to sidelying right. Vapotherm settings remain at 100%/35L with SAO2 85%. PT then consulted with RT entering room when RN and instructed me to do. Assessment/Needs 50 y.o. male, will benefit from skilled PT to address pulmonary function with functional mobility and strengthening. Patient currently tolerates minimal activity. PT will continue to monitor patient status and consult with RN prior to any session. Rehab Potential: Guarded PT Long-Term Goals Long-Term Goals PT Long-Term Goals Time Frame: Dec 05, 2020 Roll Left & Right (QC): 6 Sit to Lying (QC): 6 Lying-Sitting on Side/Bed(QC): 6 Sit to Stand (QC): 6 Chair/Kbi-fg-Jifzz Xfer(QC): 6 Toilet Transfer (QC): 6 Car Transfer (QC): 6 Does the Patient Walk: Yes Walk 10 feet (QC): 6 Walk 50ft with 2 Turns (QC): 6 Walk 150 ft (QC): 6 PT Plan Problem List Problem List: Activity Tolerance, Functional Strength, Gait, Other (decreased pulmonary function) Treatment/Plan Treatment Plan: Continue Plan of Care Treatment Plan: Bed Mobility, Education, Functional Activity Mary Jane, Functional Strength, Gait, Safety, Therapeutic Exercise, Transfers, Other (pulmonary function) Treatment Duration: Dec 05, 2020 Frequency: 6 times per week Estimated Hrs Per Day: .5 hour per day Patient and/or Family Agrees t: Yes Time/GCodes Time In: 950 Time Out: 1011 Total Billed Treatment Time: 21 Total Billed Treatment 1 visit EVModC 21 min GM CHUNG PT Nov 05, 2020 10:41
[2020-11-05] MEDS: DEXTROMETHORPHAN SUSP 30 MG/5 ML 30 ML (DELSYM) PO SCH ×2 (11:07→21:14)
[2020-11-05] MEDS: DexMEDEtomidine 250 ML DRIP 250 ML IV SCH (23:34)
[2020-11-05 23:56] VITALS: BP 129/86
[2020-11-06 02:18] VITALS: BP 131/82
[2020-11-06] MEDS: RT-ALBUTEROL INHALER HFA (VENTOLIN HFA) 18 GM IH SCH ×4 (02:18→20:27)
[2020-11-06 03:45] LABS: BASOPHILS % (AUTO) 0 % (0-10); EOSINOPHILS # (AUTO) 0.1 10^3/uL (0.0-0.3); EOSINOPHILS % (AUTO) 1 % (0-10); HEMATOCRIT 42 % (40-54); HEMOGLOBIN 14.5 g/dL (13.3-17.7); LYMPHOCYTES # (AUTO) 0.9 10^3/uL (1.0-4.0); LYMPHOCYTES % (AUTO) 8 % (12-44); MEAN CORPUSCULAR HEMOGLOBIN 31 pg (25-34); MEAN CORPUSCULAR HGB CONC 35 g/dL (32-36); MEAN CORPUSCULAR VOLUME 88 fL (80-99); MEAN PLATELET VOLUME 9.6 fL (9.0-12.2); MONOCYTES # (AUTO) 0.9 10^3/uL (0.0-1.0); MONOCYTES % (AUTO) 8 % (0-12); NEUTROPHILS # (AUTO) 8.5 10^3/uL (1.8-7.8); NEUTROPHILS % (AUTO) 81 % (42-75); PLATELET COUNT 315 10^3/uL (130-400); WHITE BLOOD COUNT 10.5 10^3/uL (4.3-11.0)
[2020-11-06 03:47] VITALS: BP 131/82
[2020-11-06 04:03] LABS: CHLORIDE 104 MMOL/L (98-107); POTASSIUM 3.8 MMOL/L (3.6-5.0); SODIUM 133 MMOL/L (135-145)
[2020-11-06 04:04] LABS: CALCIUM 8.4 MG/DL (8.5-10.1)
[2020-11-06 04:05] LABS: GLUCOSE 89 MG/DL (70-105)
[2020-11-06 04:06] LABS: CARBON DIOXIDE 18 MMOL/L (21-32)
[2020-11-06 04:08] LABS: PHOSPHORUS 2.5 MG/DL (2.3-4.7)
[2020-11-06 04:09] LABS: BUN/CREATININE RATIO 26; GFR ESTIMATED > 60
[2020-11-06 04:11] LABS: MAGNESIUM 2.1 MG/DL (1.6-2.4)
[2020-11-06] MEDS: ENOXAPARIN 300 MG/3 ML (LOVENOX) MULTI-DOSE VIAL SQ SCH (05:12)
[2020-11-06] MEDS: CEFEPIME 1,000 MG/SWFI 10 ML IV PUSH IV SCH ×2 (05:12)
[2020-11-06] MEDS: POTASSIUM CL 10MEQ/50ML IVPB 50 ML IV SCH (05:43)
[2020-11-06] MEDS: KCL 20 MEQ TAB (K-DUR) PO SCH (05:44)
[2020-11-06] MEDS: MAGNESIUM 1 GM/100 ML IVPB 100 ML IV SCH (05:44)
[2020-11-06 07:11] VITALS: BP 112/79
--- NOTE | 2020-11-06 08:42 | Physical Therapy Progress Note ---
Therapy Progress Note Patient currently on BiPap and will transition to Vapotherm this a.m. per RN. Patient requested to sit EOB to bathe with nursing. PT discussed with RN and physician on RN monitoring patient SAO2 with this activity and PT will consult after activity on patient's tolerance, due to patient did not tolerated EOB yesterday with SAO2 79%. GM CHUNG PT Nov 06, 2020 08:42
[2020-11-06] MEDS ORDERED: MELATONIN 3 MG TABLET PO PRN (08:45)
--- NOTE | 2020-11-06 08:52 | Progress Note - Hospitalist ---
Subjective HPI/CC On Admission Date Seen by Provider: Nov 06, 2020 Time Seen by Provider: 08:43 Jonathan Chavez is a 50 year old male with PMH HTN, HLD, obesity, who presented with chest pain. He described it as a heaviness worsened by cough and deep breathing. He has been short of breath and coughing .He was diagnosed with COVID-19 four days ago. He began having symptoms a few days before that. His was diagnosed before him. He did not receive the COVID vaccine. He has been eating and drinking. He has not been able to taste or smell. He has been having fevers. Subjective/Events-last exam Pt reports doing ok. Had an OK night but still on BiPAP. Objective Exam Vital Signs Vital Signs Date Time Temp Pulse Resp B/P (MAP) Pulse Ox O2 Delivery O2 Flow Rate FiO2 11/06/20 08:05 37.0 11/06/20 08:00 58 121/71 (88) 91 NIV Bilevel 45.00 11/06/20 07:11 28 11/06/20 04:00 45 Capillary Refill : Less Than 3 Seconds General Appearance: No Apparent Distress, WD/WN Respiratory: Decreased Breath Sounds, Other (on BiPAP) Cardiovascular: Regular Rate, Rhythm, No Murmur Neurologic/Psychiatric: Alert, Oriented x3 Results/Procedures Lab Laboratory Tests 11/06/20 03:23 Patient resulted labs reviewed. Imaging: Reviewed Imaging Films, Reviewed Imaging Report Assessment/Plan Assessment and Plan Assess & Plan/Chief Complaint Acute respiratory failure due to COVID-19 Lactic acidosis Pleuritic chest pain Elevated d-dimer Elevated LFTs COVID+ 10/28 Currently on BiPAP, tolerating well, has been doing Vapotherm during day and BiPAP at night Continue Decadron Not started on Remdesivir due to BiPAP/Vapotherm requirement Convalescent plasma ordered, still awaiting arrival- discussed with blood bank again today and [employer] is still working on fulfilling order; due to recent surge they have had delays Complete antibiotics today and monitor off of them, did 1 week course CTA without evidence of PE on admission Continue therapeutic lovenox as he has improved since increasing dose TeleICU consulted Cardiology consulted, appreciate recs Troponin negative x2 Discussed with eICU HTN HLD Continue home meds Obesity Clinically significant, no acute management needs DVT prophylaxis: Lovenox Critical Care Critically Ill Patient FRANCIS HARRY MD Nov 06, 2020 08:52
--- NOTE | 2020-11-06 09:03 | Tele-ICU Progress Note ---
Subjective Date Seen by a Provider: Nov 06, 2020 Time Seen by a Provider: 10:22 Subjective/Events-last exam 50 yo M with COVID PNA, started on BIPAP FIO2 down from 80 to 40% On vapotherm 30 lpm, FiO2 100% in day drops SpO2 quickly on exertion, not being pronned, Did not tolerate Was not vaccinated On IV Decadron, not remdesivr Is on IV Cefepime Sepsis Event Evaluation Height, Weight, BMI Height: 6'2.00" Weight: 238lbs. 0.0oz. 107.456288zv; 31.52 BMI Method:Estimated Exam Exam Patient acknowledged, consented, and participated in this virtual visit which was conducted using real time audio/video Vital Signs Date Time Temp Pulse Resp B/P (MAP) Pulse Ox O2 Delivery O2 Flow Rate FiO2 11/06/20 08:05 37.0 11/06/20 08:00 58 121/71 (88) 91 NIV Bilevel 45.00 11/06/20 07:11 60 28 93 40.00 11/06/20 07:00 61 11/06/20 07:00 56 147/89 (108) 92 NIV Bilevel 45.00 11/06/20 06:00 60 134/86 (102) 94 NIV Bilevel 45.00 11/06/20 05:00 64 115/89 (98) 96 NIV Bilevel 45.00 11/06/20 04:00 98 NIV Bilevel 30.00 45 11/06/20 04:00 58 121/83 (96) 96 NIV Bilevel 45.00 11/06/20 04:00 36.8 11/06/20 03:47 36.5 58 98 11/06/20 03:00 63 127/83 (98) 96 NIV Bilevel 45.00 11/06/20 02:26 NIV Bilevel 45.00 11/06/20 02:18 58 25 98 60.00 11/06/20 02:00 60 131/82 (98) 96 NIV Bilevel 60.00 11/06/20 01:00 80 11/06/20 01:00 67 125/85 (98) 90 NIV Bilevel 60.00 11/06/20 00:07 NIV Bilevel 60.00 11/06/20 00:00 36.4 11/06/20 00:00 36.5 11/06/20 00:00 97 NIV Bilevel 30.00 60 11/06/20 00:00 67 138/84 (102) 90 Vapotherm 30.00 60.00 11/05/20 23:56 75 28 94 60.00 11/05/20 23:34 66 129/86 11/05/20 23:00 61 28 129/86 (100) 97 Vapotherm 30.00 60.00 11/05/20 22:00 73 19 123/83 (96) 91 Vapotherm 30.00 60.00 11/05/20 21:02 91 Vapotherm 25.00 70 11/05/20 21:00 65 32 131/83 (99) 92 Vapotherm 30.00 60.00 11/05/20 20:00 95 Vapotherm 25.00 70 11/05/20 20:00 70 20 126/85 (99) 98 Vapotherm 30.00 60.00 11/05/20 20:00 36.8 11/05/20 20:00 36.4 11/05/20 19:37 37.2 11/05/20 19:00 73 11/05/20 19:00 72 21 126/79 (95) 96 Vapotherm 30.00 60.00 11/05/20 18:00 74 23 126/91 (103) 96 Vapotherm 30.00 60.00 11/05/20 17:00 67 31 112/80 (91) 96 Vapotherm 30.00 60.00 11/05/20 16:49 37.0 11/05/20 16:00 95 Vapotherm 30.00 60 11/05/20 16:00 70 29 115/85 (95) 99 Vapotherm 30.00 60.00 11/05/20 15:43 37.0 11/05/20 15:00 78 28 117/77 (90) 93 Vapotherm 30.00 60.00 11/05/20 14:53 93 Vapotherm 25.00 70 11/05/20 14:00 65 24 123/78 (93) 95 Vapotherm 30.00 60.00 11/05/20 13:00 71 16 116/80 (92) 92 Vapotherm 30.00 60.00 11/05/20 13:00 66 11/05/20 12:00 84 27 117/78 (91) 92 Vapotherm 30.00 60.00 11/05/20 12:00 95 Vapotherm 35.00 100 11/05/20 11:40 37.2 11/05/20 11:00 73 25 115/78 (90) 89 Vapotherm 30.00 60.00 11/05/20 10:00 62 32 126/86 (99) 90 Vapotherm 30.00 60.00 11/05/20 10:00 92 Vapotherm 35.00 100 I & O 11/06/20 07:00 Intake Total 5175 ml Output Total 2925 ml Balance 2250 ml Height & Weight Height: 6'2.00" Weight: 238lbs. 0.0oz. 107.771032tz; 31.52 BMI Method:Estimated General Appearance: No Apparent Distress, WD/WN HEENT: PERRL/EOMI, Normal ENT Inspection Neck: Normal Inspection Respiratory: Decreased Breath Sounds, Other (on BiPAP) Cardiovascular: Regular Rate, Rhythm, No Murmur Capillary Refill: Less Than 3 Seconds Peripheral Pulses: 2+ Left Dors-Pedis (L), 2+ Radial Pulses (R) Gastrointestinal: normal bowel sounds, non tender, soft Extremity: Normal Inspection, No Pedal Edema Neurologic/Psychiatric: Alert, Oriented x3 Skin: Normal Color, Warm/Dry Results Lab Laboratory Tests 11/05/20 04:07 11/06/20 03:23 Assessment/Plan Assessment/Plan Available chart/ vitals / labs / Images reviewed Video assessment done using teleICU camera, rest of exam as per RN Discussed with RN Events overnight : good night on BIPAP, neede precedex " for comfort " Afebrile hemodynamically stable, no pressors, I/O = neg 300 Drips: As per RN exam : sounds better, cracles , no edema Consultants: cards Hospital course: *Covid (+) on 10/28 (10/31) 50 Y admitted with Covid pneumonia/chest pain/ Hypoxia, CT 10/31 - no PE (11/01) Alerts w /sats 80's, vapotherm fio2 incr. to 90%--Then bipap 70%. 11/02- 40L 100% ( off bibap with nausea ) 11/03 - doing well on BIPAP , ? WOB on vapotherm 11/04 BIPAP 50 % A/P Acute resp failure, COVID PNA , CT 10/31 - no PE - Vapothem 25L 55%, BIPAP 18/11 - 50% , rr 24 tv 600 MV 16 L - self proning - minimally - WILL TRY TO KEEP ON BIPAP Q NIGHT ( TO REST RESP MUSCLES) AND VAPOTHERM DURING DAY TIME IF TOLERATED Covid PNA - not on remdesivir ( out of time frame - steroids Monitor for bact infection - empiric abx started on 10/31 - cefepime , z max - ? WBC , cx negative - cxt for tomorrow Nausea - resolved - and exam nontender as per RN - monitor Agitation intermittent ( mostly on BIPAP - intermittent precedex (with bradycrdia) Lines : periph [place]: OG: Nutrition: PO when on vapotherm Analgesia: Anxiety/ delirium prn Significant defect in oxygenation, will continue IV decadron, cefepime, Has anxiety was on IV Precedex Critical Care: Critically Ill Patient Time spent with patient (mins): 20 ROSALINDA COY MD Nov 06, 2020 09:03
[2020-11-06] MEDS: ASPIRIN E.C. 81 MG (ECOTRIN) TAB PO SCH (09:08)
[2020-11-06] MEDS: DEXTROMETHORPHAN SUSP 30 MG/5 ML 30 ML (DELSYM) PO SCH ×2 (09:08→20:41)
[2020-11-06] MEDS: PANTOPRAZOLE 40 MG (PROTONIX) VIAL IV SCH (09:08)
[2020-11-07] MEDS: RT-ALBUTEROL INHALER HFA (VENTOLIN HFA) 18 GM IH SCH ×4 (02:03→22:24)
[2020-11-07 03:28] LABS: BASOPHILS % (AUTO) 0 % (0-10); EOSINOPHILS # (AUTO) 0.1 10^3/uL (0.0-0.3); EOSINOPHILS % (AUTO) 1 % (0-10); HEMATOCRIT 42 % (40-54); HEMOGLOBIN 14.8 g/dL (13.3-17.7); LYMPHOCYTES # (AUTO) 0.9 10^3/uL (1.0-4.0); LYMPHOCYTES % (AUTO) 9 % (12-44); MEAN CORPUSCULAR HEMOGLOBIN 31 pg (25-34); MEAN CORPUSCULAR HGB CONC 35 g/dL (32-36); MEAN CORPUSCULAR VOLUME 87 fL (80-99); MEAN PLATELET VOLUME 9.7 fL (9.0-12.2); MONOCYTES # (AUTO) 0.8 10^3/uL (0.0-1.0); MONOCYTES % (AUTO) 8 % (0-12); NEUTROPHILS # (AUTO) 7.8 10^3/uL (1.8-7.8); NEUTROPHILS % (AUTO) 79 % (42-75); PLATELET COUNT 328 10^3/uL (130-400); WHITE BLOOD COUNT 9.9 10^3/uL (4.3-11.0)
[2020-11-07 03:40] LABS: ALBUMIN 3.2 GM/DL (3.2-4.5); CHLORIDE 104 MMOL/L (98-107); POTASSIUM 3.7 MMOL/L (3.6-5.0); SODIUM 134 MMOL/L (135-145)
[2020-11-07 03:41] LABS: CALCIUM 8.5 MG/DL (8.5-10.1)
[2020-11-07 03:42] LABS: GLUCOSE 88 MG/DL (70-105); TOTAL PROTEIN 6.6 GM/DL (6.4-8.2)
[2020-11-07 03:43] LABS: CARBON DIOXIDE 18 MMOL/L (21-32)
[2020-11-07 03:44] LABS: BILIRUBIN,TOTAL 0.9 MG/DL (0.1-1.0)
[2020-11-07 03:46] LABS: ALKALINE PHOSPHATASE 109 U/L (40-136); GFR ESTIMATED > 60; PHOSPHORUS 2.3 MG/DL (2.3-4.7)
[2020-11-07 03:47] LABS: BUN/CREATININE RATIO 20
[2020-11-07 03:49] LABS: ALANINE AMINOTRANSFERASE 149 U/L (0-55); MAGNESIUM 2.1 MG/DL (1.6-2.4)
[2020-11-07] MEDS: POTASSIUM CL 10MEQ/50ML IVPB 50 ML IV SCH (04:40)
[2020-11-07] MEDS: KCL 20 MEQ TAB (K-DUR) PO SCH (04:41)
[2020-11-07] MEDS: MAGNESIUM 1 GM/100 ML IVPB 100 ML IV SCH (04:41)
[2020-11-07] MEDS: ENOXAPARIN 300 MG/3 ML (LOVENOX) MULTI-DOSE VIAL SQ SCH ×3 (05:52→18:26)
--- NOTE | 2020-11-07 09:20 | Tele-ICU Progress Note ---
Progress Note video rounds completed 50 y/o male with Covid PNA who is on vapotherma nd occasionally BIPAP Receiving Decadron 6/day PE: comfortable in bed Pulse 77 BP: 119/76 OP2 sat: 97% HR: 79 NSR Labs: wbc: 9.9 Hgb: 14.8 Plts: 328 Na: 134 K: 3.7 Cl: 104 CO2 18 BUN: 12 Creat: 0.8 Glu: 88 PLAN: continue respiratory support and watch for worsening resp failure and need for intubation Focused Exam Height, Weight, BMI Height: 6'2.00" Weight: 238lbs. 0.0oz. 107.370043vt; 31.52 BMI Method:Estimated ROSALINDA CRUZ MD Nov 07, 2020 09:20
[2020-11-07] MEDS: DEXTROMETHORPHAN SUSP 30 MG/5 ML 30 ML (DELSYM) PO SCH ×2 (10:13→20:33)
[2020-11-07] MEDS: PANTOPRAZOLE 40 MG (PROTONIX) VIAL IV SCH (10:13)
[2020-11-07] MEDS: ASPIRIN E.C. 81 MG (ECOTRIN) TAB PO SCH (10:13)
--- NOTE | 2020-11-07 13:01 | Physical Therapy Daily Note ---
PT Daily Note-Current Subjective Nursing requested vapotherm to 100% with activity. Pt reported feeling less SOB, good compliance with IS. Pt reports "It feels so good to sit up!" Mental Status Patient Orientation: Person, Place, Time, Situation Attachments: Other-See Comments multiple lines, vapotherm Transfers SCALE: Activities may be completed with or without assistive devices. 8-Ymiltesdua-tmczkbs completes the activity by him/herself with no assistance from a helper. 5-Set-up or Clean-up Assistance-helper sets up or cleans up; patient completes activity. [place] assists only prior to or following the activity. 4-Supervision or Touching Assistance-helper provides verbal cues and/or touching/steadying and/or contact guard assistance as patient completes a ctivity. Assistance may be provided throughout the activity or intermittently. 3-Partial/Moderate Assistance-helper does LESS THAN HALF the effort. [place] lifts, holds or supports trunk or limbs, but provides less than half the effort. 2-Substantial/Maximal Assistance-helper does MORE THAN HALF the effort. [place] lifts or holds trunk or limbs and provides more than half the effort. 6-Sixgwoinw-cvcufh does ALL the effort. Patient does none of the effort to complete the activity. Or, the assistance of 2 or more helpers is required for the patient to complete the activity. If activity was not attempted, code reason: 7-Patient Refused. 9-Not Applicable-not attempted and the patient did not perform the activity before the current illness, exacerbation or injury. 10-Not Attempted due to Environmental Limitations-(lack of equipment, weather restraints, etc.). 88-Not Attempted due to Medical Conditions or Safety Concerns. Roll Left & Right (QC): 6 Sit to Lying (QC): 6 Lying to Sitting/Side of Bed(Q: 6 Pt sat EOB x 23' (I) with O2 sats >92% throughout treatment. Treatments Pt sat EOB x 23' with O2 sats >92% throughout. Returned to bed with all needs met, O2 at 95%. Assessment Current Status: Excellent Progress Much improved activity tolerance this date. Pt is (I) with mobility to EOB. PT Intermediate Goals Oil Burner Journeyman Goals PT Oil Burner Journeyman Goals Time Frame: Dec 05, 2020 Roll Left & Right (QC): 6 Sit to Lying (QC): 6 Lying-Sitting on Side/Bed(QC): 6 Sit to Stand (QC): 6 Chair/Cea-nk-Ikwdn Xfer(QC): 6 Toilet Transfer (QC): 6 Car Transfer (QC): 6 Does the Patient Walk: Yes Walk 10 feet (QC): 6 Walk 50ft with 2 Turns (QC): 6 Walk 150 ft (QC): 6 PT Plan Problem List Problem List: Activity Tolerance, Functional Strength, Balance, Gait, Transfer, Bed Mobility Treatment/Plan Treatment Plan: Continue Plan of Care Treatment Plan: Bed Mobility, Education, Functional Activity Mary Jane, Functional Strength, Gait, Safety, Therapeutic Exercise, Transfers, Other (pulmonary function) Treatment Duration: Dec 05, 2020 Frequency: 6 times per week Estimated Hrs Per Day: .5 hour per day Patient and/or Family Agrees t: Yes Time/GCodes Time In: 1218 Time Out: 1245 Total Billed Treatment Time: 27 Total Billed Treatment 1, FA x 27' SABRINA RODRIGUEZ DPMike Nov 07, 2020 13:01
[2020-11-08] MEDS: RT-ALBUTEROL INHALER HFA (VENTOLIN HFA) 18 GM IH SCH ×4 (02:49→19:36)
[2020-11-08 03:51] LABS: BASOPHILS % (AUTO) 0 % (0-10); EOSINOPHILS # (AUTO) 0.2 10^3/uL (0.0-0.3); EOSINOPHILS % (AUTO) 2 % (0-10); HEMATOCRIT 42 % (40-54); HEMOGLOBIN 14.9 g/dL (13.3-17.7); LYMPHOCYTES % (AUTO) 10 % (12-44); MEAN CORPUSCULAR HEMOGLOBIN 31 pg (25-34); MEAN CORPUSCULAR HGB CONC 35 g/dL (32-36); MEAN CORPUSCULAR VOLUME 87 fL (80-99); MEAN PLATELET VOLUME 9.5 fL (9.0-12.2); MONOCYTES % (AUTO) 10 % (0-12); NEUTROPHILS # (AUTO) 7.3 10^3/uL (1.8-7.8); NEUTROPHILS % (AUTO) 74 % (42-75); PLATELET COUNT 369 10^3/uL (130-400); WHITE BLOOD COUNT 9.9 10^3/uL (4.3-11.0)
[2020-11-08 04:17] LABS: CHLORIDE 106 MMOL/L (98-107); SODIUM 137 MMOL/L (135-145)
[2020-11-08 04:18] LABS: CALCIUM 8.2 MG/DL (8.5-10.1); GLUCOSE 84 MG/DL (70-105)
[2020-11-08 04:20] LABS: CARBON DIOXIDE 20 MMOL/L (21-32)
[2020-11-08 04:22] LABS: CREATININE SERUM 0.76 MG/DL (0.60-1.30); GFR ESTIMATED > 60; PHOSPHORUS 2.4 MG/DL (2.3-4.7)
[2020-11-08 04:23] LABS: BUN/CREATININE RATIO 20
[2020-11-08 04:24] LABS: MAGNESIUM 2.3 MG/DL (1.6-2.4)
[2020-11-08] MEDS: MAGNESIUM 1 GM/100 ML IVPB 100 ML IV SCH (06:27)
[2020-11-08] MEDS: ENOXAPARIN 300 MG/3 ML (LOVENOX) MULTI-DOSE VIAL SQ SCH ×2 (06:27→16:56)
[2020-11-08] MEDS: POTASSIUM CL 10MEQ/50ML IVPB 50 ML IV SCH (06:27)
[2020-11-08] MEDS: KCL 20 MEQ TAB (K-DUR) PO SCH (06:27)
[2020-11-08] MEDS: ASPIRIN E.C. 81 MG (ECOTRIN) TAB PO SCH (08:06)
[2020-11-08] MEDS: PANTOPRAZOLE 40 MG (PROTONIX) VIAL IV SCH (08:06)
[2020-11-08] MEDS: DEXTROMETHORPHAN SUSP 30 MG/5 ML 30 ML (DELSYM) PO SCH ×2 (08:06→20:00)
--- NOTE | 2020-11-08 08:21 | Tele-ICU Progress Note ---
Progress Note video rounds completed 50 y/o male with covid PNA transferred to ICU yesterdday for worsening hypoxemia Has remianed stable overnight on vapotherm/BIPAP PE:comfortable in bed, mildy tachyppnea Pulse:83 Sats 89% BP 115/74 Labs: wbs 9.9 same as yesterday Hgb stable: 14.9 plts stable: 369 Na 137 K: 4 Cl: 106 CO2 20 BUN 15 creat: 0.76 Glu: 84 Meds: on precedex, decadron pantoprazole and lovenox PLAN: so far stable covid PNA continue to observe for worsening hypoxemia and need for intubation Focused Exam Height, Weight, BMI Height: 6'2.00" Weight: 238lbs. 0.0oz. 107.363804be; 31.52 BMI Method:Estimated ROSALINDA CRUZ MD Nov 08, 2020 08:21
[2020-11-08] MEDS ORDERED: NS IV 500 ML 500 ML IV ONE (09:15)
[2020-11-08 09:41] VITALS: BP 125/88
[2020-11-08 09:56] VITALS: BP 125/88
--- NOTE | 2020-11-08 10:25 | Progress Note - Hospitalist ---
Subjective HPI/CC On Admission Date Seen by Provider: Nov 07, 2020 (LATE ENTRY NOTE) Time Seen by Provider: 10:20 Jonathan Chavez is a 50 year old male with PMH HTN, HLD, obesity, who presented with chest pain. He described it as a heaviness worsened by cough and deep breathing. He has been short of breath and coughing .He was diagnosed with COVID-19 four days ago. He began having symptoms a few days before that. His was diagnosed before him. He did not receive the COVID vaccine. He has been eating and drinking. He has not been able to taste or smell. He has been having fevers. Subjective/Events-last exam Pt reports feeling somewhat better today. Just rolled from prone and sats around 85-87. I increased FiO2 to 80%. and sats slowing started to climb. He then rolled back to prone. I informed nurse to watch closely. Objective Exam Vital Signs Vital Signs Date Time Temp Pulse Resp B/P (MAP) Pulse Ox O2 Delivery O2 Flow Rate FiO2 11/08/20 09:56 36.4 84 25 125/88 93 Vapotherm 20.00 50 Capillary Refill : Less Than 3 Seconds General Appearance: No Apparent Distress, WD/WN Respiratory: No Accessory Muscle Use, Decreased Breath Sounds, Other (on Vapotherm 30/80) Cardiovascular: Regular Rate, Rhythm, No Murmur Gastrointestinal: Normal Bowel Sounds, Soft Neurologic/Psychiatric: Alert, Oriented x3 Results/Procedures Lab Laboratory Tests 11/08/20 03:38 Patient resulted labs reviewed. Imaging: Reviewed Imaging Films, Reviewed Imaging Report Assessment/Plan Assessment and Plan Assess & Plan/Chief Complaint Acute respiratory failure due to COVID-19 Lactic acidosis Pleuritic chest pain Elevated d-dimer Elevated LFTs COVID+ 10/28 Currently on Vapotherm, had to increase this morning when I was at bedside, encouraged OOB Continue Decadron Not started on Remdesivir due to BiPAP/Vapotherm requirement Convalescent plasma still pending arrival, RN to call today and inquire Completed antibiotics CTA without evidence of PE on admission Continue therapeutic lovenox as he has improved since increasing dose TeleICU consulted Cardiology consulted, appreciate recs Troponin negative x2 Discussed with eICU HTN HLD Continue home meds Obesity Clinically significant, no acute management needs DVT prophylaxis: Lovenox Critical Care Critically Ill Patient FRANCIS HARRY MD Nov 08, 2020 10:25
--- NOTE | 2020-11-08 10:27 | Progress Note - Hospitalist ---
Subjective HPI/CC On Admission Date Seen by Provider: Nov 08, 2020 Time Seen by Provider: 10:25 Jonathan Chavez is a 50 year old male with PMH HTN, HLD, obesity, who presented with chest pain. He described it as a heaviness worsened by cough and deep breathing. He has been short of breath and coughing .He was diagnosed with COVID-19 four days ago. He began having symptoms a few days before that. His was diagnosed before him. He did not receive the COVID vaccine. He has been eating and drinking. He has not been able to taste or smell. He has been having fevers. Subjective/Events-last exam Pt reports feeling better today. No complaints. Was up to chair yesterday. Oxygen requirement slowly coming down. No complaints. Objective Exam Vital Signs Vital Signs Date Time Temp Pulse Resp B/P (MAP) Pulse Ox O2 Delivery O2 Flow Rate FiO2 11/08/20 09:56 36.4 84 25 125/88 93 Vapotherm 20.00 50 Capillary Refill : Less Than 3 Seconds General Appearance: No Apparent Distress, WD/WN Respiratory: No Accessory Muscle Use, Decreased Breath Sounds, Other (Vapotherm 20/50) Cardiovascular: Regular Rate, Rhythm, No Murmur Gastrointestinal: Normal Bowel Sounds, Soft Neurologic/Psychiatric: Alert, Oriented x3 Results/Procedures Lab Laboratory Tests 11/08/20 03:38 Patient resulted labs reviewed. Imaging: Reviewed Imaging Films, Reviewed Imaging Report Assessment/Plan Assessment and Plan Assess & Plan/Chief Complaint Acute respiratory failure due to COVID-19 Lactic acidosis Pleuritic chest pain Elevated d-dimer Elevated LFTs COVID+ 10/28 Currently on Vapotherm, down from yesterday, doing better Continue Decadron Not started on Remdesivir due to BiPAP/Vapotherm requirement Convalescent plasma here today, to be given this morning Completed antibiotics CTA without evidence of PE on admission Continue therapeutic lovenox as he has improved since increasing dose TeleICU consulted Cardiology consulted, appreciate recs Troponin negative x2 HTN HLD Continue home meds Obesity Clinically significant, no acute management needs DVT prophylaxis: Lovenox Critical Care Critically Ill Patient FRANCIS HARRY MD Nov 08, 2020 10:27
[2020-11-08 11:51] VITALS: BP 118/86
[2020-11-09] MEDS: RT-ALBUTEROL INHALER HFA (VENTOLIN HFA) 18 GM IH SCH ×4 (02:36→21:17)
[2020-11-09 04:17] LABS: BASOPHILS % (AUTO) 0 % (0-10); EOSINOPHILS # (AUTO) 0.2 10^3/uL (0.0-0.3); EOSINOPHILS % (AUTO) 2 % (0-10); HEMATOCRIT 42 % (40-54); HEMOGLOBIN 14.7 g/dL (13.3-17.7); LYMPHOCYTES # (AUTO) 1.4 10^3/uL (1.0-4.0); LYMPHOCYTES % (AUTO) 13 % (12-44); MEAN CORPUSCULAR HEMOGLOBIN 30 pg (25-34); MEAN CORPUSCULAR HGB CONC 35 g/dL (32-36); MEAN CORPUSCULAR VOLUME 87 fL (80-99); MEAN PLATELET VOLUME 10.4 fL (9.0-12.2); MONOCYTES # (AUTO) 0.9 10^3/uL (0.0-1.0); MONOCYTES % (AUTO) 9 % (0-12); NEUTROPHILS # (AUTO) 7.9 10^3/uL (1.8-7.8); NEUTROPHILS % (AUTO) 72 % (42-75); PLATELET COUNT 346 10^3/uL (130-400); WHITE BLOOD COUNT 10.9 10^3/uL (4.3-11.0)
[2020-11-09] MEDS: ENOXAPARIN 300 MG/3 ML (LOVENOX) MULTI-DOSE VIAL SQ SCH ×2 (04:59→16:53)
[2020-11-09 05:00] LABS: ALBUMIN 3.3 GM/DL (3.2-4.5); CHLORIDE 104 MMOL/L (98-107); POTASSIUM 3.9 MMOL/L (3.6-5.0); SODIUM 135 MMOL/L (135-145)
[2020-11-09 05:01] LABS: CALCIUM 8.5 MG/DL (8.5-10.1)
[2020-11-09 05:02] LABS: GLUCOSE 79 MG/DL (70-105)
[2020-11-09 05:03] LABS: TOTAL PROTEIN 6.8 GM/DL (6.4-8.2)
[2020-11-09 05:04] LABS: BILIRUBIN,TOTAL 0.8 MG/DL (0.1-1.0); CARBON DIOXIDE 19 MMOL/L (21-32)
[2020-11-09 05:06] LABS: ALKALINE PHOSPHATASE 100 U/L (40-136); CREATININE SERUM 0.94 MG/DL (0.60-1.30); GFR ESTIMATED > 60; PHOSPHORUS 2.8 MG/DL (2.3-4.7)
[2020-11-09 05:07] LABS: BUN/CREATININE RATIO 17
[2020-11-09 05:09] LABS: ALANINE AMINOTRANSFERASE 208 U/L (0-55); MAGNESIUM 2.2 MG/DL (1.6-2.4)
[2020-11-09 05:18] LABS: SMEAR SCAN COMMENT YES
[2020-11-09] MEDS: POTASSIUM CL 10MEQ/50ML IVPB 50 ML IV SCH (05:37)
[2020-11-09] MEDS: MAGNESIUM 1 GM/100 ML IVPB 100 ML IV SCH (05:37)
[2020-11-09] MEDS: KCL 20 MEQ TAB (K-DUR) PO SCH (05:37)
[2020-11-09 06:54] VITALS: BP 122/85
[2020-11-09] MEDS: DEXTROMETHORPHAN SUSP 30 MG/5 ML 30 ML (DELSYM) PO SCH ×2 (08:50→23:22)
[2020-11-09] MEDS: PANTOPRAZOLE 40 MG (PROTONIX) VIAL IV SCH (08:50)
[2020-11-09] MEDS: ASPIRIN E.C. 81 MG (ECOTRIN) TAB PO SCH (08:50)
--- NOTE | 2020-11-09 11:17 | Progress Note - Hospitalist ---
Subjective HPI/CC On Admission Date Seen by Provider: Nov 09, 2020 Time Seen by Provider: 09:35 Jonathan Chavez is a 50 year old male with PMH HTN, HLD, obesity, who presented with chest pain. He described it as a heaviness worsened by cough and deep breathing. He has been short of breath and coughing .He was diagnosed with COVID-19 four days ago. He began having symptoms a few days before that. His was diagnosed before him. He did not receive the COVID vaccine. He has been eating and drinking. He has not been able to taste or smell. He has been having fevers. Subjective/Events-last exam He is doing better this morning. He says he is not really feeling short of breath. He still has a cough. He is not having any fevers. Objective Exam Vital Signs Vital Signs Date Time Temp Pulse Resp B/P (MAP) Pulse Ox O2 Delivery O2 Flow Rate FiO2 11/09/20 11:00 93 32 126/84 (98) 95 High Flow N/C 3.00 11/09/20 07:30 36.3 11/09/20 06:54 32 Capillary Refill : Less Than 3 Seconds General Appearance: No Apparent Distress, WD/WN Respiratory: Lungs Clear, Normal Breath Sounds, No Respiratory Distress Cardiovascular: Regular Rate, Rhythm, No Edema, No Murmur Gastrointestinal: Normal Bowel Sounds, Non Tender, Soft Extremity: Normal Inspection, Non Tender, No Pedal Edema Neurologic/Psychiatric: Alert, Oriented x3, No Motor/Sensory Deficits, Normal Mood/Affect Skin: Normal Color, Warm/Dry Results/Procedures Lab Laboratory Tests 11/09/20 03:56 Patient resulted labs reviewed. Imaging: Reviewed Imaging Films, Reviewed Imaging Report Assessment/Plan Assessment and Plan Assess & Plan/Chief Complaint Acute respiratory failure due to COVID-19 Elevated d-dimer Elevated LFTs COVID+ 10/28, will require 20-day isolation Currently on nasal cannula, off Vapotherm Continue Decadron Remdesivir not indicated s/p convalescent plasma Completed antibiotics CTA without evidence of PE on admission Continue therapeutic Lovenox TeleICU and Cardiology consulted, appreciate recs HTN HLD Continue home meds Obesity Clinically significant, no acute management needs DVT prophylaxis: Already receiving therapeutic anticoagulation Lactic acidosis, resolved Pleuritic chest pain, resolved Diagnosis/Problems Diagnosis/Problems (1) Acute respiratory failure due to COVID-19 Status: Acute (2) Bacterial pneumonia Status: Resolved Resolution Date/Time: 11/09/20 @ 11:17 (3) Lactic acidosis Status: Resolved Resolution Date/Time: 11/09/20 @ 11:17 (4) Elevated LFTs Status: Acute (5) Elevated procalcitonin Status: Resolved Resolution Date/Time: 11/09/20 @ 11:17 (6) Obesity Status: Chronic (7) HTN (hypertension) Status: Chronic (8) HLD (hyperlipidemia) Status: Chronic SVETLANA POWELL MD Nov 09, 2020 11:17
--- NOTE | 2020-11-09 13:38 | Physical Therapy Daily Note ---
PT Daily Note-Current Subjective Patient much more alert and able to participate with therapy. Mental Status Patient Orientation: Normal For Age Attachments: Oxygen (3L NC HF) Transfers SCALE: Activities may be completed with or without assistive devices. 1-Qdmmhxgmdx-yxaxjyh completes the activity by him/herself with no assistance from a helper. 5-Set-up or Clean-up Assistance-helper sets up or cleans up; patient completes activity. [place] assists only prior to or following the activity. 4-Supervision or Touching Assistance-helper provides verbal cues and/or touching/steadying and/or contact guard assistance as patient completes a ctivity. Assistance may be provided throughout the activity or intermittently. 3-Partial/Moderate Assistance-helper does LESS THAN HALF the effort. [place] lifts, holds or supports trunk or limbs, but provides less than half the effort. 2-Substantial/Maximal Assistance-helper does MORE THAN HALF the effort. [place] lifts or holds trunk or limbs and provides more than half the effort. 8-Awivxwssn-pftfwx does ALL the effort. Patient does none of the effort to complete the activity. Or, the assistance of 2 or more helpers is required for the patient to complete the activity. If activity was not attempted, code reason: 7-Patient Refused. 9-Not Applicable-not attempted and the patient did not perform the activity before the current illness, exacerbation or injury. 10-Not Attempted due to Environmental Limitations-(lack of equipment, weather restraints, etc.). 88-Not Attempted due to Medical Conditions or Safety Concerns. Lying to Sitting/Side of Bed(Q: 6 Sit to Stand (QC): 6 Chair/Gbk-qw-Oemxy Xfer(QC): 6 Gait Training Does the Patient Walk?: Yes Distance: 100' in room Walk 10 feet (QC): 6 Walk 50 ft with 2 Turns(QC): 6 Gait Assistive Device: None SAO2 remains >95% with activity Assessment Patient paced in room tube length. Patient instructed to be up ad queenie to improve pulmonary function with increase in activity. Nursing notified. PT Title Manager Goals Title Manager Goals PT Title Manager Goals Time Frame: Dec 05, 2020 Roll Left & Right (QC): 6 Sit to Lying (QC): 6 Lying-Sitting on Side/Bed(QC): 6 Sit to Stand (QC): 6 Chair/Acu-nv-Nxlud Xfer(QC): 6 Toilet Transfer (QC): 6 Car Transfer (QC): 6 Does the Patient Walk: Yes Walk 10 feet (QC): 6 Walk 50ft with 2 Turns (QC): 6 Walk 150 ft (QC): 6 PT Plan Treatment/Plan Treatment Plan: Continue Plan of Care Treatment Plan: Bed Mobility, Education, Functional Activity Mary Jane, Functional Strength, Gait, Safety, Therapeutic Exercise, Transfers, Other (pulmonary function) Treatment Duration: Dec 05, 2020 Frequency: 6 times per week Estimated Hrs Per Day: .5 hour per day Patient and/or Family Agrees t: Yes Time/GCodes Time In: 1312 Time Out: 1328 Total Billed Treatment Time: 16 Total Billed Treatment 1 visit FA 16 min GM CHUNG PT Nov 09, 2020 13:38
--- NOTE | 2020-11-09 15:14 | Tele-ICU Progress Note ---
Subjective Date Seen by a Provider: Nov 09, 2020 Time Seen by a Provider: 15:14 Sepsis Event Evaluation Height, Weight, BMI Height: 6'2.00" Weight: 238lbs. 0.0oz. [id number]; 31.52 BMI Method:Estimated Exam Exam Patient acknowledged, consented, and participated in this virtual visit which was conducted using real time audio/video Vital Signs Date Time Temp Pulse Resp B/P (MAP) Pulse Ox O2 Delivery O2 Flow Rate FiO2 11/09/20 14:41 92 High Flow N/C 4.00 11/09/20 14:00 96 110/81 (91) 95 High Flow N/C 3.00 11/09/20 13:00 84 121/90 (100) 95 High Flow N/C 3.00 11/09/20 12:40 94 11/09/20 12:00 94 119/82 (94) 90 High Flow N/C 3.00 11/09/20 12:00 96 High Flow N/C 3.00 11/09/20 11:50 37.0 11/09/20 11:00 93 32 126/84 (98) 95 High Flow N/C 3.00 11/09/20 10:00 86 24 119/77 (91) 93 High Flow N/C 3.00 11/09/20 09:00 76 90 High Flow N/C 3.00 11/09/20 08:04 94 High Flow N/C 4.00 11/09/20 08:00 68 122/78 (93) 94 High Flow N/C 3.00 11/09/20 08:00 96 High Flow N/C 3.00 11/09/20 07:30 36.3 11/09/20 07:00 65 137/95 (109) 88 High Flow N/C 3.00 11/09/20 07:00 79 11/09/20 06:54 35.9 82 90 32 11/09/20 06:00 82 122/85 (97) 88 High Flow N/C 3.00 11/09/20 05:00 70 126/87 (96) 92 High Flow N/C 3.00 11/09/20 04:18 95 High Flow N/C 3.00 11/09/20 04:00 74 123/86 (98) 94 High Flow N/C 3.00 11/09/20 03:00 66 127/87 (104) 93 High Flow N/C 3.00 11/09/20 02:36 96 High Flow N/C 4.00 11/09/20 02:00 63 111/83 (93) 95 High Flow N/C 5.00 11/09/20 01:23 High Flow N/C 5.00 11/09/20 01:00 68 11/09/20 01:00 68 106/86 (94) 91 High Flow N/C 2.00 11/09/20 00:07 35.9 95 High Flow N/C 2.00 11/09/20 00:00 73 117/82 (94) 96 High Flow N/C 5.00 11/08/20 23:48 High Flow N/C 5.00 11/08/20 23:00 70 122/91 (101) 96 High Flow N/C 5.00 11/08/20 22:00 67 120/88 (98) 95 High Flow N/C 5.00 11/08/20 21:00 78 129/88 (95) 95 High Flow N/C 5.00 11/08/20 20:27 95 High Flow N/C 5.00 11/08/20 20:00 36.2 11/08/20 20:00 80 126/85 (96) 94 High Flow N/C 5.00 11/08/20 19:37 96 Vapotherm 20.00 40 11/08/20 19:15 80 18 132/93 (106) 91 High Flow N/C 5.00 11/08/20 19:00 82 11/08/20 18:00 70 124/87 (99) 95 Vapotherm 15.00 50.00 11/08/20 17:00 74 120/89 (99) 94 Vapotherm 15.00 50.00 11/08/20 16:00 36.2 11/08/20 16:00 94 Vapotherm 20.00 40 11/08/20 16:00 72 123/85 (98) 95 Vapotherm 15.00 50.00 I & O 11/09/20 07:00 Intake Total 3105 ml Output Total 4500 ml Balance -1395 ml Height & Weight Height: 6'2.00" Weight: 238lbs. 0.0oz. 107.118434ep; 31.52 BMI Method:Estimated General Appearance: No Apparent Distress, WD/WN HEENT: PERRL/EOMI, Normal ENT Inspection Neck: Normal Inspection Respiratory: Lungs Clear, Normal Breath Sounds, No Respiratory Distress Cardiovascular: Regular Rate, Rhythm, No Edema, No Murmur Capillary Refill: Less Than 3 Seconds Peripheral Pulses: 2+ Left Dors-Pedis (L), 2+ Radial Pulses (R) Gastrointestinal: normal bowel sounds, non tender, soft Extremity: Normal Inspection, Non Tender, No Pedal Edema Neurologic/Psychiatric: Alert, Oriented x3, No Motor/Sensory Deficits, Normal Mood/Affect Skin: Normal Color, Warm/Dry Results Lab Laboratory Tests 11/08/20 03:38 11/09/20 03:56 Assessment/Plan Assessment/Plan (Tele-ICU Physician , Progress Note ) Available chart/ vitals / labs / Images reviewed Video assessment done using teleICU camera, rest of exam as per RN Discussed with RN Events overnight : Afebrile hemodynamically stable, no pressors, I/O = neg 300 Drips: As per RN exam : sounds better, cracles , no edema Consultants: cards Hospital course: *Covid (+) on 10/28 (10/31) 50 Y admitted with Covid pneumonia/chest pain/ Hypoxia, CT 10/31 - no PE (11/01) Alerts w /sats 80's, vapotherm fio2 incr. to 90%--Then bipap 70%. 11/02- 40L 100% ( off bibap with nausea ) 11/03 - doing well on BIPAP , ? WOB on vapotherm 11/04 BIPAP 50 % 11/09 - 3L A/P Acute resp failure, COVID PNA , CT 10/31 - no PE - started on lovenox 110 12 11/04 empirically - WITH LOW O2 NEEDS CONSIDER TO CHANGE TO PROPHYLACTIC DOSE -3L o2 Covid PNA - not on remdesivir ( out of time frame - steroids - OFF Monitor for bact infection - empiric abx started on 10/31 - cefepime , z max - FINISHED course Nausea - resolved - and exam nontender as per RN - monitor Agitation intermittent ( mostly on BIPAP - N/A now Lines : periph [place]: OG: Nutrition: PO when on vapotherm Analgesia: Anxiety/ delirium prn VTE Prophylaxis: lovenox 110 q12 Stress Ulcer Prophylaxis: PPI Glycemic Control: + Plans in collaboration with bedside consultants and IM MDs. Discussed with RN to reach out if any questions or concerns A total of 20minutes of critical care time was devoted to this patient today, required to treat and/or prevent further deterioration of critical care condition ( as above ABRAHAN FERNANDEZ MD Nov 09, 2020 15:14
[2020-11-09 19:27] VITALS: BP 120/82
[2020-11-09 23:26] VITALS: BP 119/78
[2020-11-10 03:29] LABS: BASOPHILS # (AUTO) 0.1 10^3/uL (0.0-0.1); BASOPHILS % (AUTO) 1 % (0-10); EOSINOPHILS # (AUTO) 0.2 10^3/uL (0.0-0.3); EOSINOPHILS % (AUTO) 2 % (0-10); HEMATOCRIT 43 % (40-54); HEMOGLOBIN 15.3 g/dL (13.3-17.7); LYMPHOCYTES # (AUTO) 1.6 10^3/uL (1.0-4.0); LYMPHOCYTES % (AUTO) 17 % (12-44); MEAN CORPUSCULAR HEMOGLOBIN 31 pg (25-34); MEAN CORPUSCULAR HGB CONC 35 g/dL (32-36); MEAN CORPUSCULAR VOLUME 88 fL (80-99); MEAN PLATELET VOLUME 9.6 fL (9.0-12.2); MONOCYTES # (AUTO) 0.9 10^3/uL (0.0-1.0); MONOCYTES % (AUTO) 10 % (0-12); NEUTROPHILS # (AUTO) 6.6 10^3/uL (1.8-7.8); NEUTROPHILS % (AUTO) 67 % (42-75); PLATELET COUNT 385 10^3/uL (130-400); WHITE BLOOD COUNT 9.8 10^3/uL (4.3-11.0)
[2020-11-10 03:56] LABS: CHLORIDE 104 MMOL/L (98-107); POTASSIUM 3.8 MMOL/L (3.6-5.0); SODIUM 137 MMOL/L (135-145)
[2020-11-10 03:57] LABS: CALCIUM 8.7 MG/DL (8.5-10.1)
[2020-11-10 03:58] LABS: GLUCOSE 87 MG/DL (70-105)
[2020-11-10 03:59] LABS: CARBON DIOXIDE 22 MMOL/L (21-32)
[2020-11-10 04:00] VITALS: BP 135/87
[2020-11-10 04:01] LABS: CREATININE SERUM 0.86 MG/DL (0.60-1.30); GFR ESTIMATED > 60; PHOSPHORUS 3.7 MG/DL (2.3-4.7)
[2020-11-10 04:02] LABS: BUN/CREATININE RATIO 17
[2020-11-10 04:04] LABS: MAGNESIUM 2.2 MG/DL (1.6-2.4)
[2020-11-10] MEDS: KCL 20 MEQ TAB (K-DUR) PO SCH (05:51)
[2020-11-10] MEDS: POTASSIUM CL 10MEQ/50ML IVPB 50 ML IV SCH (05:51)
[2020-11-10] MEDS: MAGNESIUM 1 GM/100 ML IVPB 100 ML IV SCH (05:51)
[2020-11-10] MEDS: ENOXAPARIN 300 MG/3 ML (LOVENOX) MULTI-DOSE VIAL SQ SCH (06:07)
[2020-11-10 08:11] VITALS: BP 116/78
[2020-11-10] MEDS: PANTOPRAZOLE 40 MG (PROTONIX) VIAL IV SCH (09:16)
[2020-11-10] MEDS: ASPIRIN E.C. 81 MG (ECOTRIN) TAB PO SCH (09:16)
[2020-11-10] MEDS: DEXTROMETHORPHAN SUSP 30 MG/5 ML 30 ML (DELSYM) PO SCH ×2 (09:16→21:24)
[2020-11-10] MEDS: RT-ALBUTEROL INHALER HFA (VENTOLIN HFA) 18 GM IH SCH ×3 (09:58→21:36)
--- NOTE | 2020-11-10 11:29 | Physical Therapy Progress Note ---
Therapy Progress Note Patient instructed to be up independently in room frequently to improve pulmonary capacity. Patient voices understanding and nursing confirms patient has been up independently without difficulty. PT instructed patient to perform exercises independently as well. PT to dismiss patient from services at this time. 1 visit 1115 GM CHUNG PT Nov 10, 2020 11:29
[2020-11-10 12:00] VITALS: BP 110/71
--- NOTE | 2020-11-10 13:41 | Progress Note - Hospitalist ---
Subjective HPI/CC On Admission Date Seen by Provider: Nov 10, 2020 Time Seen by Provider: 09:30 Jonathan Chavez is a 50 year old male with PMH HTN, HLD, obesity, who presented with chest pain. He described it as a heaviness worsened by cough and deep breathing. He has been short of breath and coughing .He was diagnosed with COVID-19 four days ago. He began having symptoms a few days before that. His was diagnosed before him. He did not receive the COVID vaccine. He has been eating and drinking. He has not been able to taste or smell. He has been having fevers. Subjective/Events-last exam He is feeling ok. He does not feel short of breath. He still has a cough. He is not having fevers. Objective Exam Vital Signs Vital Signs Date Time Temp Pulse Resp B/P (MAP) Pulse Ox O2 Delivery O2 Flow Rate FiO2 11/10/20 12:00 36.9 78 20 110/71 (84) 94 High Flow N/C 5.00 11/09/20 06:54 32 Capillary Refill : Less Than 3 Seconds General Appearance: No Apparent Distress, WD/WN Respiratory: Lungs Clear, Normal Breath Sounds, No Respiratory Distress Cardiovascular: Regular Rate, Rhythm, No Edema, No Murmur Gastrointestinal: Normal Bowel Sounds, Non Tender, Soft Extremity: Normal Inspection, Non Tender, No Pedal Edema Neurologic/Psychiatric: Alert, Oriented x3, No Motor/Sensory Deficits, Normal Mood/Affect Skin: Normal Color, Warm/Dry Results/Procedures Lab Laboratory Tests 11/10/20 03:14 Patient resulted labs reviewed. Imaging: Reviewed Imaging Report Assessment/Plan Assessment and Plan Assess & Plan/Chief Complaint Acute respiratory failure due to COVID-19 Elevated d-dimer Elevated LFTs COVID+ 10/28, will require 20-day isolation Currently on nasal cannula, off Vapotherm s/p Decadron Remdesivir not indicated s/p convalescent plasma Completed antibiotics CTA without evidence of PE on admission Stop Lovenox Transition to [facility] TeleU and Cardiology consulted, appreciate recs HTN HLD Continue home meds Obesity Clinically significant, no acute management needs DVT prophylaxis: Already receiving therapeutic anticoagulation Lactic acidosis, resolved Pleuritic chest pain, resolved Diagnosis/Problems Diagnosis/Problems (1) Acute respiratory failure due to COVID-19 Status: Acute (2) Bacterial pneumonia Status: Resolved Resolution Date/Time: 11/09/20 @ 11:17 (3) Lactic acidosis Status: Resolved Resolution Date/Time: 11/09/20 @ 11:17 (4) Elevated LFTs Status: Acute (5) Elevated procalcitonin Status: Resolved Resolution Date/Time: 11/09/20 @ 11:17 (6) Obesity Status: Chronic (7) HTN (hypertension) Status: Chronic (8) HLD (hyperlipidemia) Status: Chronic (9) Hypercoagulable state associated with COVID-19 Status: Acute SVETLANA POWELL MD Nov 10, 2020 13:41
[2020-11-10 16:00] VITALS: BP 116/76
[2020-11-10 19:21] VITALS: BP 109/72
[2020-11-10] MEDS: APIXABAN 5 MG (ELIQUIS) TABLET PO SCH (21:24)
[2020-11-10] MEDS: ACETAMINOPHEN 325 MG TABLET PO PRN (21:24)
[2020-11-10 23:35] VITALS: BP 118/76
[2020-11-11] MEDS: RT-ALBUTEROL INHALER HFA (VENTOLIN HFA) 18 GM IH SCH ×2 (02:13→09:12)
[2020-11-11 03:20] VITALS: BP 117/79
[2020-11-11 05:11] LABS: ALBUMIN 3.4 GM/DL (3.2-4.5); CHLORIDE 106 MMOL/L (98-107); SODIUM 138 MMOL/L (135-145)
[2020-11-11 05:12] LABS: CALCIUM 8.7 MG/DL (8.5-10.1)
[2020-11-11 05:13] LABS: GLUCOSE 88 MG/DL (70-105); TOTAL PROTEIN 6.7 GM/DL (6.4-8.2)
[2020-11-11 05:14] LABS: CARBON DIOXIDE 24 MMOL/L (21-32)
[2020-11-11 05:15] LABS: BILIRUBIN,TOTAL 0.7 MG/DL (0.1-1.0)
[2020-11-11 05:15] LABS: BASOPHILS # (AUTO) 0.1 10^3/uL (0.0-0.1); BASOPHILS % (AUTO) 1 % (0-10); EOSINOPHILS # (AUTO) 0.2 10^3/uL (0.0-0.3); EOSINOPHILS % (AUTO) 2 % (0-10); HEMATOCRIT 43 % (40-54); HEMOGLOBIN 15.1 g/dL (13.3-17.7); LYMPHOCYTES # (AUTO) 1.3 10^3/uL (1.0-4.0); LYMPHOCYTES % (AUTO) 17 % (12-44); MEAN CORPUSCULAR HEMOGLOBIN 31 pg (25-34); MEAN CORPUSCULAR HGB CONC 35 g/dL (32-36); MEAN CORPUSCULAR VOLUME 88 fL (80-99); MEAN PLATELET VOLUME 9.5 fL (9.0-12.2); MONOCYTES # (AUTO) 0.9 10^3/uL (0.0-1.0); MONOCYTES % (AUTO) 12 % (0-12); NEUTROPHILS % (AUTO) 63 % (42-75); PLATELET COUNT 360 10^3/uL (130-400); WHITE BLOOD COUNT 7.8 10^3/uL (4.3-11.0)
[2020-11-11 05:17] LABS: ALKALINE PHOSPHATASE 94 U/L (40-136); CREATININE SERUM 0.84 MG/DL (0.60-1.30); GFR ESTIMATED > 60; PHOSPHORUS 3.6 MG/DL (2.3-4.7)
[2020-11-11 05:18] LABS: BUN/CREATININE RATIO 18
[2020-11-11 05:20] LABS: ALANINE AMINOTRANSFERASE 212 U/L (0-55); MAGNESIUM 2.3 MG/DL (1.6-2.4)
[2020-11-11] MEDS: MAGNESIUM 1 GM/100 ML IVPB 100 ML IV SCH (05:25)
[2020-11-11] MEDS: KCL 20 MEQ TAB (K-DUR) PO SCH (05:25)
[2020-11-11] MEDS: POTASSIUM CL 10MEQ/50ML IVPB 50 ML IV SCH (05:26)
[2020-11-11 05:44] LABS: ATYPICAL LYMPHOCYTES 1 %; BAND NEUTROPHILS 1 %; EOSINOPHILS % (MANUAL) 3 %; LYMPHOCYTES % (MANUAL) 11 %; METAMYELOCYTES % 2 %; MONOCYTES % (MANUAL) 12 %; NEUTROPHILS % (MANUAL) 70 %
[2020-11-11 08:00] VITALS: BP 121/77
[2020-11-11] MEDS ORDERED: ALLOPURINOL 300 MG (ZYLOPRIM) TAB PO SCH (09:00)
[2020-11-11] MEDS ORDERED: DIAZEPAM 5 MG (VALIUM) TABLET PO SCH (09:00)
[2020-11-11] MEDS ORDERED: meTOproloL SUCCINATE 50 MG (TOPROL XL) TAB PO SCH (09:00)
[2020-11-11 09:12] VITALS: BP 120/81
[2020-11-11] MEDS: DEXTROMETHORPHAN SUSP 30 MG/5 ML 30 ML (DELSYM) PO SCH (09:37)
[2020-11-11] MEDS: APIXABAN 5 MG (ELIQUIS) TABLET PO SCH (09:37)
[2020-11-11] MEDS: ASPIRIN E.C. 81 MG (ECOTRIN) TAB PO SCH (09:37)
[2020-11-11] MEDS: PANTOPRAZOLE 40 MG (PROTONIX) VIAL IV SCH (09:37)
[2020-11-11] MEDS ORDERED: APIX5TAB PO (10:08)
[2020-11-11 12:00] VITALS: BP 120/81
== END 2020-11-11 12:00 | disposition home or self-care (01) | DRG 177 ==
LOC: EDUNIT# 09:25 → ER 09:28 → ICU 11:07 → 4TH 11-09 15:59
PROVIDERS: ADMIT Internal Medicine; ATTEND Internal Medicine
PROC: XW13325 Transfusion of Convalescent Plasma (Nonautologous) into Peripheral Vein, Percutaneous Approach, New Technology Group 5 (ICD-10-PCS; principal; 2020-10-31)
PROC: 5A09357 Assistance with Respiratory Ventilation, Less than 24 Consecutive Hours, Continuous Positive Airway Pressure (ICD-10-PCS; 2020-10-31)
DX: U07.1 COVID-19 (principal); J12.82 Pneumonia due to coronavirus disease 2019; J15.9 Unspecified bacterial pneumonia; J96.01 Acute respiratory failure with hypoxia; E87.2 Acidosis; D68.59 Other primary thrombophilia; E78.00 Pure hypercholesterolemia, unspecified; I10 Essential (primary) hypertension; G89.29 Other chronic pain; M54.9 Dorsalgia, unspecified; M10.9 Gout, unspecified; Z89.021 Acquired absence of right finger(s); E66.9 Obesity, unspecified; R11.0 Nausea; F41.9 Anxiety disorder, unspecified; R45.1 Restlessness and agitation; Z68.29 Body mass index [BMI] 29.0-29.9, adult
CPT/HCPCS: 36415; 36600; 71045; 71275; 80048; 80053; 80061; 82805; 83605; 83615; 83735; 83874; 84100; 84145; 84484; 85007; 85025; 85027; 85379; 85610; 85730; 86141; 86900; 86901; 87040; 87081; 93005; 93041; 94640; 94660; 94664; 94760; 94761; 96374; 96375

== ENCOUNTER 2021-12-27 23:41 | Emergency (ER) | payer SELFPAY ==
[~2021-12-27] VITALS: Ht 185.5 cm; Wt 111.1 kg
[~2021-12-27 23:41] MED LIST changes: +APIX5TAB PO; +HYDR-3820 PO; +METH4TAB11 PO; -SULF1TAB35 PO; +SULF1TAB38 PO
[2021-12-28] VITALS: BP 153/91
[2021-12-28] MEDS ORDERED: PRD20T PO (00:51)
[2021-12-28] MEDS ORDERED: TRAM-42 PO (00:51)
--- NOTE | 2021-12-28 00:52 | ED Upper Extremity ---
General Chief Complaint: Upper Extremity Stated Complaint: RT ARM & SHOULDER PX Nursing Triage Note: PT AMBULATORY TO ROOM. STATES HE WAS SWINGING AN AXE APPROX 5 DAYS AGO, SWUNG IT WRONG, AND HIS RIGHT ARM/SHOULDER/SCAPULA HAVE HURT AND "BEEN TINGLY" SINCE. PT STATES HE HAS TRIED TYLENOL AND IBUPROFEN WITHOUT RELIEF. PT STATES HE TRIED RESTING THE ARM FOR 3 DAYS AND IT "HAS JUST NOT GOTTEN ANY BETTER." Source: patient Exam Limitations: no limitations History of Present Illness Date Seen by Provider: Dec 28, 2021 Time Seen by Provider: 00:34 Initial Comments This 51-year-old gentleman presents to the emergency room with complaints of pain primarily in the right shoulder around the medial edge of the scapula and some numbness extending into his arm. Pain started after he used a 30 pound sledgehammer to a pen on a truck. He has been taking Tylenol and ibuprofen without significant relief. He has had cervical spine disease with surgical repair. He denies any pain in the neck at this time. Allergies and Home Medications Allergies Coded Allergies: morphine (Verified Allergy, Mild, N/V, 10/24/17) Patient Home Medication List Home Medication List Reviewed: Yes Albuterol Sulfate (Proair Hfa) 1 Puff Puff, 2 PUFF INH Q4H PRN for SHORTNESS OF BREATH, (Reported) Entered as Reported by: UMU DUNBAR on 11/02/20 1409 Allopurinol (Allopurinol) 300 Mg Tablet, 300 MG PO DAILY, (Reported) Entered as Reported by: APOLINAR ALVARADO on 09/05/17 0948 Apixaban (Eliquis) 5 Mg Tablet, 5 MG PO BID Prescribed by: SVETLANA POWELL on 11/11/20 1008 Diazepam (Diazepam) 5 Mg Tablet, 5 MG PO BID, (Reported) Entered as Reported by: APOLINAR ALVARADO on 09/05/17 0956 Hydrocodone/Acetaminophen (Hydrocodone-Acetamin 10-325 mg) 1 Each Tablet, 1 EACH PO Q4- 6H PRN for PAIN-MODERATE (5-7), (Reported) Entered as Reported by: UMU DUNBAR on 11/02/20 1409 Metoprolol Succinate (Metoprolol Succinate) 50 Mg Tab.er.24h, 50 MG PO DAILY, (Reported) Entered as Reported by: APOLINAR ALVARADO on 09/05/17 0948 Prednisone (Prednisone) 20 Mg Tab, 40 MG PO DAILY Prescribed by: CHRISTIAN LOPEZ on 12/28/2150 Tramadol HCl (Ultram) 50 Mg Tablet, 50 MG PO Q6H PRN for PAIN-BREAKTHROUGH Prescribed by: CHRISTIAN LOPEZ on 12/28/2150 Review of Systems Constitutional: no symptoms reported Respiratory: no symptoms reported Cardiovascular: no symptoms reported Musculoskeletal: see HPI Skin: no symptoms reported Psychiatric/Neurological: See HPI Past Bfqjbnp-Colqja-Pyhgos Hx Patient Social History Tobacco Use?: No Use of E-Cig and/or Vaping dev: No Substance use?: No Alcohol Use?: No Immunizations Up To Date Tetanus Booster (TDap): Unknown PED Vaccines UTD: Yes Influenza Vaccine Up-to-Date: No; Not Current Seasonal Allergies Seasonal Allergies: No Past Medical History Surgery/Hospitalization HX: CERVICAL DISC SURGERY X2 Surgeries: Yes (APPY, DISC SURG, amputation of index finger rt hand) Amputation, Appendectomy, Orthopedic (Cervical spine) Respiratory: No Cardiac: Yes High Cholesterol, Hypertension Neurological: Yes Neuropathy Reproductive Disorders: No Sexually Transmitted Disease: No HIV/AIDS: No Genitourinary: No Gastrointestinal: Yes Abdominal Hernia Musculoskeletal: Yes (chronic neck pain) Chronic Back Pain, Gout Endocrine: No HEENT: No Cancer: No Psychosocial: No Integumentary: No Blood Disorders: No Family Medical History Patient reports no known family medical history. No Pertinent Family Hx Unknown family history as patient is adopted Physical Exam Vital Signs Vital Signs - First Documented 12/28/21 00:00 Temp 36.9 Pulse 65 Resp 22 B/P (MAP) 153/91 (111) Pulse Ox 97 Capillary Refill : Height, Weight, BMI Height: 6'2.00" Weight: 238lbs. 0.0oz. 107.738638kn; 32.00 BMI Method:Estimated General Appearance: WD/WN, no apparent distress HEENT: normal ENT inspection Neck: non-tender, normal inspection Cardiovascular: regular rate, rhythm, no edema, no murmur Respiratory: lungs clear, normal breath sounds, no respiratory distress Shoulder: normal inspection, normal ROM, pain (Pain and tenderness in the musculature just medial to the scapula on the right.) Elbow/Forearm: normal inspection, non-tender, no evidence of injury, normal ROM, Right Wrist: Yes normal inspection, Yes no evidence of injury, Yes normal ROM Hand: normal inspection, no evidence of injury, normal ROM, Right (Amputation of the right index finger) Neurologic/Psychiatric: table operator II-XII nml as tested, no motor/sensory deficits, alert, normal mood/affect, oriented x 3 Skin: normal color, warm/dry Progress/Results/Core Measures Results/Orders My Orders Orders - CHRISTIAN LAM MD Ketorolac Injection (Toradol Injection) (12/28/21 01:00) Medications Given in ED Current Medications Medications Dose Ordered Sig/Terell Route Start Time Stop Time Status Last Admin Dose Admin Ketorolac Tromethamine 30 mg ONCE ONCE IM 12/28/21 01:00 12/28/21 01:01 DC 12/28/21 01:02 30 MG Vital Signs/I&O 12/28/21 00:00 Temp 36.9 Pulse 65 Resp 22 B/P (MAP) 153/91 (111) Pulse Ox 97 Blood Pressure Mean: 111 Progress Progress Note : Progress Note Symptoms likely related to muscle strain versus cervical radiculopathy. Toradol administered in the ER and prescription for prednisone provided. Departure Impression Primary Impression: Right shoulder pain Qualified Codes: M25.511 - Pain in right shoulder Disposition: 01 HOME, SELF-CARE Condition: Improved Departure-Patient Inst. Decision time for Depature: 00:47 Referrals: NO,LOCAL PHYSICIAN (PCP/Family) Primary Care Physician Patient Instructions: Radiculopathy, Shoulder Pain ED Add. Discharge Instructions: For primary pain control you may take ibuprofen up to 600 mg every 6 hours as needed and/or Tylenol (acetaminophen) up to 1000 mg every 6 hours as needed. For pain not controlled by jego-lec-hcsnbbx medications, you may add Ultram (tramadol) as prescribed. Tramadol may cause some drowsiness so use with caution. It may also cause constipation, so you may wish to use a stool softener such as Colace while you are on it. Steroids should be taken early in the day to avoid sleep disturbance and taken with food or milk to avoid stomach upset. If you are not noticing significant improvement after 1 to 2 weeks, please follow-up with your doctor and discuss further evaluation which may include evaluation for nerve impingement in the neck. Gradually increase level of activity as pain allows. Avoid activities that worsen the pain. Call your doctor with questions or concerns. Return to the ER if you have worsening symptoms despite following these instructions. All discharge instructions reviewed with patient and/or family. Voiced understanding. Scripts Prednisone (Prednisone) 20 Mg Tab 40 MG PO DAILY, #6 TAB 0 Refills Prov: CHRISTIAN LAM MD 12/28/21 Tramadol HCl (Ultram) 50 Mg Tablet 50 MG PO Q6H PRN for PAIN-BREAKTHROUGH, #12 TAB Prov: CHRISTIAN LAM MD 12/28/21 CHRISTIAN LAM MD Dec 28, 2021 00:52
[2021-12-28] MEDS ORDERED: KETOROLAC 30 MG/ML VIAL IM ONE (01:00)
== END 2021-12-28 01:05 | disposition home or self-care (01) ==
LOC: EDUNIT# 23:41 → ER 23:44
DX: M25.511 Pain in right shoulder (principal); Z88.5 Allergy status to narcotic agent; Z28.310 Unvaccinated for COVID-19; Z98.890 Other specified postprocedural states; X50.0XXA Overexertion from strenuous movement or load, initial encounter
CPT/HCPCS: 96372; 99284